=== PATIENT | female | born 1940 | race Caucasian/White ===

== ENCOUNTER 2017-10-16 09:30 | Outpatient (RCR) | payer MEDICARE, OTHER, SELFPAY | END 2017-10-17 23:59 | LOC: NS 09:30 | PROVIDERS: Family Provider Family Medicine; PCP Family Medicine; Visit Provider Orthopaedic Surgery | DX: E66.9 Obesity, unspecified (principal); Z68.42 Body mass index [BMI] 45.0-49.9, adult; Z71.3 Dietary counseling and surveillance | CPT/HCPCS: 97802; 97803 ==

== ENCOUNTER 2017-11-04 08:52 | Outpatient (RCR) | payer MEDICARE, OTHER, SELFPAY | END 2017-11-16 23:59 | LOC: NS 08:52 | PROVIDERS: Family Provider Family Medicine; PCP Family Medicine; Visit Provider Orthopaedic Surgery | DX: E66.9 Obesity, unspecified (principal); Z68.42 Body mass index [BMI] 45.0-49.9, adult; Z71.3 Dietary counseling and surveillance | CPT/HCPCS: 97803 ==

== ENCOUNTER 2017-12-05 09:00 | Outpatient (RCR) | payer MEDICARE, OTHER, SELFPAY | END 2017-12-17 23:59 | LOC: NS 09:00 | PROVIDERS: Family Provider Family Medicine; PCP Family Medicine; Visit Provider Orthopaedic Surgery | DX: E66.9 Obesity, unspecified (principal); Z68.42 Body mass index [BMI] 45.0-49.9, adult; Z71.3 Dietary counseling and surveillance | CPT/HCPCS: 97803 ==

== ENCOUNTER 2018-01-12 10:00 | Outpatient (RCR) | payer MEDICARE, OTHER, SELFPAY | END 2018-01-16 23:59 | LOC: NS 10:00 | PROVIDERS: Family Provider Family Medicine; PCP Family Medicine; Visit Provider Orthopaedic Surgery | DX: E66.9 Obesity, unspecified (principal); Z68.42 Body mass index [BMI] 45.0-49.9, adult; Z71.3 Dietary counseling and surveillance | CPT/HCPCS: 97803 ==

== ENCOUNTER 2018-02-02 08:00 | Outpatient (RCR) | payer MEDICARE, OTHER, SELFPAY | END 2018-02-02 11:43 | disposition home or self-care (01) | LOC: NS 08:00 | PROVIDERS: Family Provider Family Medicine; PCP Family Medicine; Visit Provider Orthopaedic Surgery | DX: E66.9 Obesity, unspecified (principal); Z68.42 Body mass index [BMI] 45.0-49.9, adult; Z71.3 Dietary counseling and surveillance | CPT/HCPCS: 97803 ==

== ENCOUNTER → 2018-02-06 10:00 | Outpatient (CLI) | payer MEDICARE, OTHER, SELFPAY ==
[2018-02-06 11:42] LABS: Anion Gap 8 (5-15); BUN 26 mg/dL (7-18); BUN/Creat Ratio 27.8 RATIO (10-20); Chloride 101 mmol/L (98-107); Creatinine, Serum 0.94 mg/dL (0.55-1.02); EST Glomerular Filtration Rate 62 mL/min (>60); Est Glom Filt Rate - Afr Amer 75 mL/min (>60); Glucose 99 mg/dL (74-106); Potassium 2.8 mmol/L (3.5-5.1); Sodium Level 139 mmol/L (136-145)
== END ==
PROVIDERS: Family Provider Family Medicine; PCP Family Medicine
DX: I10 Essential (primary) hypertension (principal)
CPT/HCPCS: 36415; 80048

== ENCOUNTER → 2018-10-15 | Outpatient (CLI) | payer MEDICARE, OTHER, SELFPAY ==
[2018-10-15 13:37] LABS: Hematocrit 44.3 % (37-47); Hemoglobin 14.8 g/dL (12.0-15.0); Mean Corp Hgb Conc 33.4 g/dL (32-36); Mean Corpuscular Hgb 29.2 pg (27.0-32.0); Mean Corpuscular Volume 87.5 fL (81-99); Mean Platelet Vol. 10.4 fl (6.2-12.0); Platelet Count 257 K/mm3 (150-450); RBC Distribution Width CV 14.6 % (11.6-14.6); RBC Distribution Width SD 46.5 fl (35.1-43.9); Red Blood Count 5.06 M/mm3 (4.2-5.4); White Blood Count 8.2 K/mm3 (4.4-11.0)
[2018-10-15 13:58] LABS: ALB/GLOB Ratio 0.9 RATIO (0.9-2.4); AST(SGOT) 22 U/L (15-37); Alanine Aminotransfer ALT/SGPT 17 U/L (13-56); Albumin, Serum 3.2 g/dL (3.2-5.0); Alkaline Phosphatase 150 U/L (45-117); Anion Gap 6 (5-15); BUN 26 mg/dL (7-18); BUN/Creat Ratio 23.2 RATIO (10-20); Chloride 104 mmol/L (98-107); Creatinine, Serum 1.12 mg/dL (0.55-1.02); EST Glomerular Filtration Rate 50 mL/min (>60); Est Glom Filt Rate - Afr Amer 61 mL/min (>60); Globulin 3.7 g/dL (2.2-4.2); Glucose 116 mg/dL (74-106); Potassium 3.3 mmol/L (3.5-5.1); Protein, Total 6.9 g/dL (6.4-8.2); Sodium Level 141 mmol/L (136-145)
== END | disposition home or self-care (01) ==
LOC: LAB 13:17
PROVIDERS: Family Provider Family Medicine; PCP Family Medicine; Referring Provider Family Medicine; Visit Provider Family Medicine
DX: E11.9 Type 2 diabetes mellitus without complications (principal); M19.90 Unspecified osteoarthritis, unspecified site; I10 Essential (primary) hypertension; E87.6 Hypokalemia
CPT/HCPCS: 36415; 80053; 85027

== ENCOUNTER → 2019-10-29 08:58 | Outpatient (CLI) | payer MEDICARE, OTHER, SELFPAY ==
[2019-10-29 09:22] LABS: Hematocrit 43.6 % (37-47); Hemoglobin 13.9 g/dL (12.0-15.0); Mean Corp Hgb Conc 31.9 g/dL (32-36); Mean Corpuscular Hgb 27.8 pg (27.0-32.0); Mean Corpuscular Volume 87.2 fL (81-99); Mean Platelet Vol. 10.5 fl (6.2-12.0); Platelet Count 263 K/mm3 (150-450); RBC Distribution Width CV 15.5 % (11.6-14.6); RBC Distribution Width SD 49.2 fl (35.1-43.9); White Blood Count 7.7 K/mm3 (4.4-11.0)
[2019-10-29 09:41] LABS: Hemoglobin A1c 5.5 % (3.8-5.6)
[2019-10-29 09:47] LABS: ALB/GLOB Ratio 0.8 RATIO (0.9-2.4); AST(SGOT) 27 U/L (15-37); Alanine Aminotransfer ALT/SGPT 19 U/L (13-56); Albumin, Serum 3.3 g/dL (3.2-5.0); Alkaline Phosphatase 183 U/L (45-117); Anion Gap 7 (5-15); BUN 34 mg/dL (7-18); BUN/Creat Ratio 31.8 RATIO (10-20); Calcium,Total 9.2 mg/dL (8.5-10.1); Chloride 100 mmol/L (98-107); Cholesterol 119 mg/dL (200); Creatinine, Serum 1.07 mg/dL (0.55-1.02); EST Glomerular Filtration Rate 53 mL/min (>60); Est Glom Filt Rate - Afr Amer 64 mL/min (>60); Globulin 4.1 g/dL (2.2-4.2); Glucose 97 mg/dL (74-106); High Density Lipoprotein 51 mg/dL; Potassium 3.3 mmol/L (3.5-5.1); Protein, Total 7.4 g/dL (6.4-8.2); Sodium Level 141 mmol/L (136-145); Triglycerides 98 mg/dL; Very Low Density Lipoprotein 20 mg/dL (5-40)
== END ==
PROVIDERS: PCP Nurse Practitioner Family; Referring Provider Nurse Practitioner Family; Visit Provider Nurse Practitioner Family
DX: I10 Essential (primary) hypertension (principal); E11.9 Type 2 diabetes mellitus without complications; E78.5 Hyperlipidemia, unspecified
CPT/HCPCS: 36415; 80053; 80061; 83036; 85027

== ENCOUNTER → 2020-02-29 11:54 | Outpatient (CLI) | payer MEDICARE, OTHER, SELFPAY ==
[2020-02-29 13:20] LABS: ALB/GLOB Ratio 0.8 RATIO (0.9-2.4); AST(SGOT) 27 U/L (15-37); Alanine Aminotransfer ALT/SGPT 22 U/L (13-56); Albumin, Serum 3.2 g/dL (3.2-5.0); Alkaline Phosphatase 178 U/L (45-117); Anion Gap 7 (5-15); BUN 31 mg/dL (7-18); BUN/Creat Ratio 30.4 RATIO (10-20); Calcium,Total 9.2 mg/dL (8.5-10.1); Chloride 103 mmol/L (98-107); Creatinine, Serum 1.02 mg/dL (0.55-1.02); EST Glomerular Filtration Rate 56 mL/min (>60); Est Glom Filt Rate - Afr Amer 67 mL/min (>60); Globulin 4.1 g/dL (2.2-4.2); Glucose 121 mg/dL (74-106); Potassium 3.2 mmol/L (3.5-5.1); Protein, Total 7.3 g/dL (6.4-8.2); Sodium Level 140 mmol/L (136-145)
== END ==
PROVIDERS: PCP Nurse Practitioner Family; Referring Provider Nurse Practitioner Family; Visit Provider Nurse Practitioner Family
DX: E87.6 Hypokalemia (principal)
CPT/HCPCS: 36415; 80053

== ENCOUNTER 2020-05-22 15:12 | Inpatient (IN) | payer MEDICARE, OTHER, SELFPAY ==
[2020-05-11 13:21] VITALS: BMI 50.1
[2020-05-22] VITALS (7 sets, daily range): BP systolic 119–155; BP diastolic 65–80; PULSE 75–89; RESP 15–24; TEMP 36.4–37; O2SAT 94–98; BMI 52.7; BMI 52.4
--- NOTE | 2020-05-22 15:21 | ED.DCSUM_ITS ---
History of Present Illness Chief Complaint: Other, Pain/Inj Informant: Patient Narrative: 79-year-old female with history of CVA and history of right-sided hemiparesis presenting with right hip and right knee pain. She states this is been a chronic issue since 2013 when she had her CVA. She states that over the last few days has been hurting worse. She has physical therapy at home and was unable to do physical therapy and was sent by physical therapy to come evaluated in the ER. She states she normally ambulates with a walker but cannot do this. She denies any falls. Patient states she lives at home and is concerned for her safety. - Past Medical History (1) Atrial fibrillation Status: Acute (2) CVA (cerebral vascular accident) Status: Acute (3) Hypercholesteremia Status: Acute Past Medical History - Allergies and Home Meds Allergies/Adverse Reactions: Allergies acetaminophen [From Darvocet-N] Allergy (Verified 05/22/20 15:19) Shortness of breath carvedilol Allergy (Verified 05/22/20 15:19) unknown celecoxib Allergy (Verified 05/22/20 15:19) unknown codeine Allergy (Verified 05/22/20 15:19) Shortness of breath etodolac Allergy (Verified 05/22/20 15:19) unknown irbesartan Allergy (Verified 05/22/20 15:19) unknown latex Allergy (Verified 05/22/20 15:19) unknown lisinopril Allergy (Verified 05/22/20 15:19) unknown losartan Allergy (Verified 05/22/20 15:19) unknown morphine Allergy (Verified 05/22/20 15:19) Shortness of breath Opioids - Morphine Analogues Allergy (Verified 05/22/20 15:19) unknown propoxyphene [From Darvon] Allergy (Verified 05/22/20 15:19) unknown propoxyphene napsylate [From Darvocet-N] Allergy (Verified 05/22/20 15:19) Shortness of breath sotalol Allergy (Verified 05/22/20 15:19) unknown Prior records reviewed: Yes Past Medical History: - - Fibrillation, CVA, COPD, hyperlipidemia, hypertension, morbid obesity Surgical History: total knee arthroplasty Lives: Alone Smoking Status: Never smoker Alcohol: None Drugs: None Review of Systems General: Denies: Chills, Fever, Sweats Eyes: Denies: Visual changes - bilaterally, Diplopia ENT: Denies: Rhinorrhea, Sore throat Cardiovascular: Denies: Chest pain, Palpitations Respiratory: Reports: Dyspnea, Dyspnea on exertion. Denies: Cough Gastrointestinal: Denies: Abdominal pain, Nausea, Vomiting, Diarrhea, Melena, Hematochezia Genitourinary: Denies: Dysuria, Hematuria, Frequency Musculoskeletal: Reports: - - Right hip and right knee pain Skin: Denies: Rash, Abscess, Abrasions Neurological: Denies: Headache, Weakness, Numbness Psych: Denies: Depression, Anxiety Endocrine: Denies: Polyuria, Polydipsia Physical Exam Vital Signs/Narrative: Vital Signs Temp Pulse Resp BP Pulse Ox 05/22/20 15:13 98.6 F 77 22 H 123/65 H 98 Inital Vital Signs reviewed: Yes General: Obese, No Acute Distress Head: Normocephalic, Atraumatic Eyes: Perrl, EOMI ENT: Moist mucous membranes, No rhinorrhea Cardiovascular: Regular rate, Regular rhythm Respiratory: No distress, CTA bilaterally Abdomen: Soft, Nontender, Nondistended Extremities: - - Tenderness to palpation over the right trochanter. No obvious deformity. There is pain with range of motion. Negative logroll. Patient also has pain with range of motion of the right knee. She appears to have tenderness down the IT band on the right. Skin: Normal color, No rash Neurological: Alert, Oriented x3, Cranial nerves II-XII grossly intact Psychological: Normal affect, Normal Mood Diagnostic/Tx/Re-eval Clinical Impression(s) from Imaging Studies Hip/Pelvis X-Ray 05/22/20 15:30 IMPRESSION: 1. No acute findings. 2. Severe osteoarthrosis of the right hip. Electronically Signed: Celestina Finn MD at 16:41 EDT Tel , Service support , Knee X-Ray 05/22/20 15:30 IMPRESSION: Soft tissue swelling, otherwise no acute findings. Electronically Signed: Celestina Finn MD at 16:42 EDT Tel , Service support , Chest X-Ray 05/22/20 16:00 IMPRESSION: 1. No acute findings. Electronically Signed: Celestina Finn MD at 16:34 EDT Tel , Service support , Laboratory Data 05/22/20 05/22/20 05/22/20 15:55 15:55 15:55 WBC 7.6 RBC 4.49 Hgb 11.8 L Hct 38.7 MCV 86.2 MCH 26.3 L MCHC 30.5 L RDW Std Deviation 55.8 H RDW Coeff of Rasta 17.8 H Plt Count 263 MPV 10.2 Immature Gran % (Auto) 0.500 Neut % (Auto) 72.5 H Lymph % (Auto) 12.2 L [place] % (Auto) 9.8 Eos % (Auto) 4.6 Baso % (Auto) 0.4 Absolute Neuts (auto) 5.5 Absolute Lymphs (auto) 0.92 Nucleated RBC % 0 Sodium 139 Potassium 4.0 Chloride 106 Carbon Dioxide 29.0 Anion Gap 4 L BUN 33 H Creatinine 1.35 H Estim Creat Clear Calc 24.67 Est GFR (MDRD) Af Amer 49 L Est GFR (MDRD) Non-Af 40 L BUN/Creatinine Ratio 24.4 H Glucose 139 H Calcium 9.1 Total Bilirubin 0.80 AST 26 ALT 24 Alkaline Phosphatase 179 H Troponin I < 0.015 B-Natriuretic Peptide 634.1 H Total Protein 7.2 Albumin 2.9 L Globulin 4.3 H Albumin/Globulin Ratio 0.7 L - Medical Decision Making 79-year-old female presenting with inability to ambulate secondary to right hip and right knee pain. She is not had any trauma. She was seeing home PT today and was unable to perform this secondary to pain. She states she walks with a walker and cannot walk around her house. She lives alone. Patient does state that she is chronically short of breath and has worsening of this when she is walking but it may be due to pain. EKG performed on arrival shows atrial fibrillation at 77 bpm without signs of ischemic change as interpreted by myself. Chest x-ray shows no acute cardiopulmonary process as interpreted by myself. Radiology does agree with both reads. CBC shows white blood cell count 7.6, hemoglobin 11.8, platelets 263. CMP shows BUN 33, creatinine 1.35 and was previously 1.38. BNP is 634 was previously 716. There is no signs of chest of CHF on chest x-ray. Given patient's inability ambulate difficulty finding medications he can tolerate due to multiple allergies I did give her Toradol which seemed to give her some relief. Patient will be admitted. At this time she cannot tell me whether she wants to go to a long-term or longterm. They can determine this on the medical floor. Discussed with hospitalist. Impression: 1. Right hip pain 2. Right knee pain 3. Inability to ambulate ED Disposition - Plan for ED Patient:
--- NOTE | 2020-05-22 15:29 | EKG12_ITS ---
Test Reason : RIGHT SIDE PAIN Blood Pressure : / mmHG Vent. Rate : 077 BPM Atrial Rate : 277 BPM P-R Int : 000 ms QRS Dur : 082 ms QT Int : 402 ms P-R-T Axes : 000 -27 157 degrees QTc Int : 454 ms Atrial fibrillation Low voltage QRS Cannot rule out Anteroseptal infarct , age undetermined Abnormal ECG Confirmed by LYDIA LANG, STEPHANIE ([id number]), editor department JAKOB MORALES ([id number]) on 05/26/2020 2:28:18 PM Referred By: MISTI Confirmed By:STEPHANIE FREEMAN MD
--- NOTE | 2020-05-22 15:30 | RAD_ITS ---
STUDY: X-RAY - RIGHT KNEE REASON FOR EXAM: Female, 79 years old. knee pain TECHNIQUE: 2 view(s) of the knee. COMPARISON: None. FINDINGS: Prior total knee replacement. No fracture or dislocation. No periprosthetic fracture. No evidence of loosening. Moderate soft tissue swelling. RAD/Knee 1 or 2 Views IMPRESSION: Soft tissue swelling, otherwise no acute findings. Electronically Signed: Celestina Finn MD at 16:42 EDT Tel , Service support ,
--- NOTE | 2020-05-22 15:30 | RAD_ITS ---
STUDY: X-RAY - PELVIS AND RIGHT HIP REASON FOR EXAM: Female, 79 years old. hip pain TECHNIQUE: 3 views of the pelvis and hip. COMPARISON: None. FINDINGS: Prior left hip replacement. No fracture or dislocation. Severe osteoarthrosis of the right hip. Marked joint space narrowing, sclerosis, and subchondral cyst formation. Flattening of the femoral head may indicate insufficiency fracture. There is mild lateral subluxation of the femoral head. Mild degenerative changes of the lower lumbar spine. RAD/HIP, UNI W/ Pelvis 2-3 Views IMPRESSION: 1. No acute findings. 2. Severe osteoarthrosis of the right hip. Electronically Signed: Celestina Finn MD at 16:41 EDT Tel , Service support ,
--- NOTE | 2020-05-22 16:00 | RAD_ITS ---
STUDY: X-RAY CHEST REASON FOR EXAM: Female, 79 years old. dypnea TECHNIQUE: Single AP portable view of the chest. COMPARISON: 06/04/2013. FINDINGS: The lungs are clear and expanded. There is no demonstrated pleural abnormality. Normal size heart. Normal mediastinum and teresa. Normal visualized pulmonary arteries. Mild atherosclerotic calcification of the aorta. Degenerative arthrosis of the right shoulder. Soft tissues and bony structures are otherwise unremarkable. RAD/Chest 1 View (Portable) IMPRESSION: 1. No acute findings. Electronically Signed: Celestina Finn MD at 16:34 EDT Tel , Service support ,
[2020-05-22 16:14] LABS: Absolute Lymphocyte Count 0.92 X10^3/uL (0.83-4.51); Absolute Neutrophil Count 5.5 X10^3/uL (2.0-7.7); Basophil# 0.03 X10^3/uL; Basophil% 0.4 % (0-1); Eosinophil# 0.35 X10^3/uL; Eosinophils% 4.6 % (0-5); Hematocrit 38.7 % (37-47); Hemoglobin 11.8 g/dL (12.0-15.0); Lymphocyte # 0.92 X10^3/ul (4.0); Lymphocyte % 12.2 % (19-41); Mean Corp Hgb Conc 30.5 g/dL (32-36); Mean Corpuscular Hgb 26.3 pg (27.0-32.0); Mean Corpuscular Volume 86.2 fL (81-99); Mean Platelet Vol. 10.2 fl (6.2-12.0); Monocyte# 0.74 X10^3/uL; Monocyte% 9.8 % (0-10); NRBC Flagged by Analyzer 0 % (0-5); Neutrophil # 5.47 X10^3/uL (2.7-7.7); Neutrophil % 72.5 % (47-70); Platelet Count 263 K/mm3 (150-450); RBC Distribution Width CV 17.8 % (11.6-14.6); RBC Distribution Width SD 55.8 fl (35.1-43.9); Red Blood Count 4.49 M/mm3 (4.2-5.4); White Blood Count 7.6 K/mm3 (4.4-11.0)
[2020-05-22 16:31] LABS: ALB/GLOB Ratio 0.7 RATIO (0.9-2.4); AST(SGOT) 26 U/L (15-37); Alanine Aminotransfer ALT/SGPT 24 U/L (13-56); Albumin, Serum 2.9 g/dL (3.2-5.0); Alkaline Phosphatase 179 U/L (45-117); Anion Gap 4 (5-15); BUN 33 mg/dL (7-18); BUN/Creat Ratio 24.4 RATIO (10-20); Calcium,Total 9.1 mg/dL (8.5-10.1); Chloride 106 mmol/L (98-107); Creatinine, Serum 1.35 mg/dL (0.55-1.02); EST Glomerular Filtration Rate 40 mL/min (>60); Est Glom Filt Rate - Afr Amer 49 mL/min (>60); Estimated Creatinine Clearance 24.67 ml/min; Globulin 4.3 g/dL (2.2-4.2); Glucose 139 mg/dL (74-106); Protein, Total 7.2 g/dL (6.4-8.2); Sodium Level 139 mmol/L (136-145)
[2020-05-22 16:47] LABS: BNP,B-Type NATRIURETIC PEPTIDE 634.1 pg/mL (0-100)
[2020-05-22] MEDS: Ketorolac 15 MG/ML Vial IV ×2 (17:08→22:19)
--- NOTE | 2020-05-22 18:21 | HP.PCM_ITS ---
Problem List (1) Right hip pain Status: Acute (2) Right knee pain Status: Acute Qualifiers: Chronicity: acute Qualified Code(s): M25.561 - Pain in right knee (3) Morbid obesity Status: Chronic (4) CKD (chronic kidney disease) Status: Chronic Qualifiers: Chronic kidney disease stage: stage 3 (moderate) Chronic kidney disease stage 3 subtype: unspecified whether 3a or 3b Qualified Code(s): N18.30 - Chronic kidney disease, stage 3 unspecified (5) Lymphedema Status: Chronic (6) Atrial fibrillation Status: Chronic Qualifiers: Atrial fibrillation type: paroxysmal Qualified Code(s): I48.0 - Paroxysmal atrial fibrillation (7) COPD with asthma Status: Chronic (8) HTN (hypertension) Status: Chronic Qualifiers: Hypertension type: essential hypertension Qualified Code(s): I10 - Essential (primary) hypertension (9) CVA (cerebral vascular accident) Status: Chronic Qualifiers: CVA mechanism: unspecified Qualified Code(s): I63.9 - Cerebral infarction, unspecified (10) Dyslipidemia Status: Chronic (11) DM2 (diabetes mellitus, type 2) Status: Chronic Qualifiers: Diabetes mellitus chcf insulin use: without long wall shear operator use Diabetes mellitus complication status: with other specified complication Qualified Code(s): E11.69 - Type 2 diabetes mellitus with other specified complication History of Present Illness Date of Admission: 05/22/20 Chief Complaint: R hip and R knee pain. The patient is a 79 y/o F w/ PMHx: Diabetes mellitus type II, GERD, Chronic COPD/Asthma, Chronic CHF Unclear type, Hx R sided CVA w/ chronic hemiplegia usually using a walker, HTN, HLD, PAF who presents to the [facility] ED on 05/22/20 with history of worsening R sided hip and knee pain ongoing for many years but worse over the last several days with no specific fall or injury but notable difficulty performing her own ALDs prompting her home PT/OT to refer her to the ED for evaluation. She is currently rating her pain 10 out of 10, worse with movement or attempted ambulation but does state that Toradol significantly improved her pain down to a 3 out of 10. She notes this has been similar for years on and and nothing is significantly changed but it has been more constant over the last several days. She notes that she had her stroke unfortunately when they were attempting to replace her hip. In the ED patient reports her hip pain recurrent, currently 10 out of 10, worse with any attempted movements. She did state that the Toradol did relieve her pain and made it 3 out of 10. She has been living with this for a long time but notes it is more severe over the last several days with no specific injury or fall. Work-up in the ED included T 98.6, heart rate 77, BP 123/65, respiratory rate 22, 98% on room air, CBC with WC 7.6, hemoglobin 9.8, platelet 263 without marked shift, CMP with BUN/creatinine 33/1.35, glucose 139, troponin less than 0.015, BNP 634.1, plain film right hip and pelvis with no acute findings with severe osteoarthrosis of the right hip, plain film of the right knee with soft tissue swelling otherwise no acute findings, chest x-ray with no acute cardiopulmonary findings. In the ED patient ministered Toradol 50 mg IV x1. Past Medical History Past Medical History (Chronic Problems): Chronic Problems (Last Reviewed 05/11/20 @ 13:16 by Tracy Ayon) Pulmonary hypertension (Chronic) Morbid obesity (Chronic) CKD (chronic kidney disease) (Chronic) Lymphedema (Chronic) Atrial fibrillation (Chronic) COPD with asthma (Chronic) HTN (hypertension) (Chronic) CVA (cerebral vascular accident) (Chronic) Dyslipidemia (Chronic) DM2 (diabetes mellitus, type 2) (Chronic) Medical History: Medical History (Last Reviewed 05/11/20 @ 13:16 by Tracy Ayon) History of cardioversion (Acute) Z98.890 Morbid obesity (Acute) E66.01 Hypercholesteremia (Acute) E78.00 CVA (cerebral vascular accident) (Acute) I63.9 CKD (chronic kidney disease) (Chronic) N18.9 Hepatitis A (Acute) B15.9 Lymphedema (Acute) I89.0 Hypokalemia (Acute) E87.6 Atrial fibrillation (Acute) I48.91 COPD with asthma (Chronic) J44.9 HTN (hypertension) (Chronic) I10 CVA (cerebral vascular accident) (Acute) I63.9 Dyslipidemia (Chronic) E78.5 DM2 (diabetes mellitus, type 2) (Chronic) E11.9 Allergies acetaminophen [From Darvocet-N] Allergy (Verified 05/22/20 15:19) Shortness of breath carvedilol Allergy (Verified 05/22/20 15:19) unknown celecoxib Allergy (Verified 05/22/20 15:19) unknown codeine Allergy (Verified 05/22/20 15:19) Shortness of breath etodolac Allergy (Verified 05/22/20 15:19) unknown irbesartan Allergy (Verified 05/22/20 15:19) unknown latex Allergy (Verified 05/22/20 15:19) unknown lisinopril Allergy (Verified 05/22/20 15:19) unknown losartan Allergy (Verified 05/22/20 15:19) unknown morphine Allergy (Verified 05/22/20 15:19) Shortness of breath Opioids - Morphine Analogues Allergy (Verified 05/22/20 15:19) unknown propoxyphene [From Darvon] Allergy (Verified 05/22/20 15:19) unknown propoxyphene napsylate [From Darvocet-N] Allergy (Verified 05/22/20 15:19) Shortness of breath sotalol Allergy (Verified 05/22/20 15:19) unknown Home Medications: Ambulatory Orders Medication Instructions Recorded Albuterol Inhaler [Ventolin Hfa] 1 - 2 puff INHALATION Q4H PRN PRN 06/04/13 [id number] [Beano] 1 each PO TIDCM 06/04/13 Lansoprazole [Prevacid] 30 mg PO DAILY 06/04/13 Multivitamins,Therapeutic 1 tablet PO DAILY 06/04/13 [Multivitamin] Naproxen [Naprosyn] 500 mg PO BID PRN 06/04/13 Valsartan/Hydrochlorothiazide 1 tablet PO DAILY 06/04/13 [Diovan Hct 320-12.5 MG Tab] apixaban 5 mg tablet 5 mg PO BID 05/10/20 atorvastatin 40 mg tablet 40 mg PO DAILY 05/10/20 diltiazem HCl 240 mg 240 mg PO DAILY 05/10/20 capsule,extended release 24 hr fexofenadine 60 mg tablet 60 mg PO DAILY@1200 tablet 05/10/20 flunisolide 25 mcg (0.025 %) nasal 1 spray INTRANASAL DAILY ml 05/10/20 spray furosemide 40 mg tablet 40 mg PO BID 05/10/20 metoprolol tartrate 50 mg tablet 50 mg PO BID 05/10/20 potassium chloride 20 mEq 20 meq PO DAILY 05/10/20 tablet,extended release umeclidinium 62.5 mcg-vilanterol 1 inh INHALATION DAILY 05/10/20 25 mcg/actuation powdr for inhalation Surgical History: Surgical History (Last Reviewed 05/11/20 @ 13:16 by Tracy Ayon) Hx of abdominal hysterectomy (Resolved) Z90.710 History of arthroplasty of knee (Resolved) Z96.659 History of carpal tunnel release (Resolved) Z98.890 History of total hip replacement (Resolved) Z96.649 Surgical History: total knee arthroplasty Psychiatric History: No pertinent psych hx [employer] History: No pertinent [employer] history Lives: Alone Smoking Status: Never smoker Alcohol: None Drugs: None - *Family History Maternal Family History: Family History (Last Reviewed 05/11/20 @ 13:16 by Tracy Ayon) Mother Asthma Cancer CHF (congestive heart failure) Hypertension Heart disease Hyperchloremia FH: mental illness Father Cancer Son Asthma Daughter Cancer History Items: Cancer, High Cholesterol, Heart Disease, Hypertension, Pulmonary Disease, Stroke Paternal Family History: Family History (Last Reviewed 05/11/20 @ 13:16 by Tracy Ayon) Mother Asthma Cancer CHF (congestive heart failure) Hypertension Heart disease Hyperchloremia FH: mental illness Father Cancer Son Asthma Daughter Cancer History Items: Cancer Review of Systems Constitutional: Reports: Malaise, Weakness, Fatigue. Denies: Anorexia, Chills, Fever, Weight Change HEENT: Denies: Head Aches, Sinus Congestion, Sinus Drainage Cardiovascular: Denies: Chest Pain, Palpitations Respiratory: Denies: Cough, Shortness of breath at rest, Sputum production Gastrointestinal: Denies: Abdominal Pain, Nausea, Vomiting Genitourinary: Denies: Dysuria Musculoskeletal: Reports: Back Pain, Joint Pain, Joint stiffness, Joint swelling, Joint Tenderness, Leg Pain Skin: Denies: Rash, Wounds Neurological: Reports: Focal weakness. Denies: Numbness, Tingling Psychiatric: Denies: Anxiety, Depression, Homicidal Ideations, Suicidal Ideations Hematologic/ Lymphatic: Reports: Easy Bruising, Easy Bleeding VTE Information - Inpt Only VTE Present on Admission: No VTE Mechan Device Prophylaxis: SCD's VTE Pharm Prophylaxis ordered?: No Reason prophylaxis not ordered:: Treatment Not Indicated - Continue home anticoagulation. Patient Problems: Active and Suspected Problems (Last Reviewed 05/11/20 @ 13:16 by Tracy Ayon) Hypercholesteremia (Acute) Subjective: Patient seated upright in ED bed, severely uncomfortable, notes her right hip is hurting again as well as her right knee, had improved transiently. Objective: Physical Examination: General: awake, alert, oriented x 3 and cooperative, seated upright in the ED bed, notes she is very uncomfortable, she notes this is a chronic state but worse over the last couple days with activities. Skin: normal color, turgor, no icterus, cyanosis set notable bilateral lower extremity chronic venous stasis skin changes. HEENT: AT/NC, EOMI, PERRLA, mildly dry MM, no carotid bruits or JVD noted; however, thickened neck makes examination difficult. Lungs: Diminished, distant, greater bases, appropriate effort, no rales, ronchi or wheezing. Heart: Regular rate and rhythm; no gallop, rub audible. Abdomen: soft, morbidly obese, NTTP, ND, normal BS, difficult to assess HSM secondary to morbidly obese habitus. Extremities: no cyanosis or clubbing, bilateral lower extremity right greater than left which is chronic pedal to proximal casas 2+ pitting edema, chronic lymphedema present per patient discussion, see skin. Notable discomfort with lower extremity straight leg raise, right greater than left with pain worse to the right hip, internal and external rotation appropriate although some difficulty performing secondary to discomfort. Neurological: patient awake, alert, oriented as noted; cognitive function intact; pupils equally reactive to light and accomodation; cranial nerves II-XII grossly normal, moving all 4 extremities although very limited secondary to right knee and hip pain, patient with chronic mild right-sided hemiplegia following stroke, strength severely global decrease secondary to acute presentation and chronic underlying prior comorbidities. Psychiatric: affect appears uncomfortable, no acute evidence of depressive or anxiety feelings. - Physical Exam Vitals/I&O's: Vital Signs Temp Pulse Resp BP Pulse Ox 98.0 F 89 15 155/80 H 96 05/22/20 18:08 05/22/20 18:08 05/22/20 18:08 05/22/20 18:08 05/22/20 18:08 Oxygen Delivery Method Room Air Weight: 270 lb 4.587 oz Body Mass Index (BMI) 52.7 Finger Stick Blood Glucose 149 Laboratory Results 05/22/20 15:55: WBC 7.6, RBC 4.49, Hgb 11.8 L, Hct 38.7, MCV 86.2, MCH 26.3 L, MCHC 30.5 L, RDW Std Deviation 55.8 H, RDW Coeff of Rasta 17.8 H, Plt Count 263, MPV 10.2, Immature Gran % (Auto) 0.500, Neut % (Auto) 72.5 H, Lymph % (Auto) 12.2 L, [place] % (Auto) 9.8, Eos % (Auto) 4.6, Baso % (Auto) 0.4, Absolute Neuts (auto) 5.5, Absolute Lymphs (auto) 0.92, Nucleated RBC % 0 05/22/20 15:55: Sodium 139, Potassium 4.0, Chloride 106, Carbon Dioxide 29.0, Anion Gap 4 L, BUN 33 H, Creatinine 1.35 H, Estim Creat Clear Calc 24.67, Est GFR (MDRD) Af Amer 49 L, Est GFR (MDRD) Non-Af 40 L, BUN/Creatinine Ratio 24.4 H , Glucose 139 H, Calcium 9.1, Total Bilirubin 0.80, AST 26, ALT 24, Alkaline Phosphatase 179 H, Troponin I < 0.015, Total Protein 7.2, Albumin 2.9 L, Globulin 4.3 H, Albumin/Globulin Ratio 0.7 L 05/22/20 15:55: B-Natriuretic Peptide 634.1 H Assessment/Plan All Active Problems (Last Reviewed 05/11/20 @ 13:16 by Tracy Ayon) Right hip pain (Acute) Right knee pain (Acute) Dyspnea (Acute) Hx of abdominal hysterectomy (Resolved) History of arthroplasty of knee (Resolved) History of carpal tunnel release (Resolved) History of total hip replacement (Resolved) History of cardioversion (Acute) Hypercholesteremia (Acute) CVA (cerebral vascular accident) (Acute) Hepatitis A (Acute) Hypokalemia (Acute) The patient is a 79 y/o F w/ PMHx: Diabetes mellitus type II, GERD, Chronic COPD/Asthma, Chronic CHF Unclear type, Hx R sided CVA w/ chronic hemiplegia usually using a walker, HTN, HLD, PAF who presents to the [facility] ED on 4/5/21 with history of worsening R sided hip and knee pain ongoing for many years but worse over the last several days with no specific fall or injury but notable difficulty performing her own ALDs prompting her home PT/OT to refer her to the ED. 1. Intractable right hip and right knee pain with debility, failure to thrive at home adult: Given patient #2, complicates presentation, plain films with no acute findings aside from severe osteoarthrosis, given difficulty caring for self at home will admit to medical surgical floor, maintain on fall precautions, obtain PT and OT assessment as well as case management intervention for possible need for skilled temporary placement, as needed pain regimen oral and IV if necessary, cautiously use anti-inflammatories given anticoagulation state. If not improving may need to consider further imaging with CT to further evaluate for possible underlying injury not visualized on plain film. 2. History of prior CVA with chronic right-sided hemiplegia: Complicates presentation, maintain on fall precautions, PT and OT consulted, continue patient apixaban, hypertensive regimen, statin therapy as well as diabetic interventions with hold on oral regimen as noted. 3. Chronic COPD/Asthma: Hold patient home inhalers, maintain on ATC duonebs, PRN albuterol, HOB, IS parameters. 4. Diabetes mellitus type II: Hold oral home regimen, ADA diet, accu checks w/ ISS. 5. PAF: Will continue patient home apixaban, diltiazem as well as metoprolol regimen with hold parameters as needed. 6. Hypertension: Continue home regimen including diltiazem, metoprolol, valsartan, hydrochlorothiazide regimen with hold parameters as needed, PRN hydralazine. 7. Hyperlipidemia: Continue home statin regimen. 8. GERD: Continue patient home PPI. 9. Chronic bilateral lower extremity lymphedema: We will place snug Shashi wraps, elevation as #1 allows. 10. DVT prophylaxis: SCDs, continue patient home apixaban regimen. 11. CODE status: Patient EVAN is her daughter and she notes that her son is her financial power of civil attorney and living will is currently in place. Discussed CODE status at length including difference between FULL code, DNR-CCA and DNR-CC status. Following discussions about the differences in these status, requested Full Code but was very specific about additional items in her living will. Advanced Care Planning Face to Face Time: 16 minutes. OBSV E&M: 47630 Initial observation care L3 Procedures: 57095 Advncd Care Plan 30 Min
[2020-05-22 18:55] LABS: Magnesium 2.5 mg/dL (1.6-2.6)
[2020-05-22] MEDS: Ipratropium/Albuterol Sulfate 3 ML AMPUL.NEB INHALATION (19:31)
[2020-05-22] MEDS: 0.9% Normal Saline 1,000 ML 100 ML IV (20:13)
[2020-05-22] MEDS: 0.9% Saline Lock 10 ML Syringe IV (20:13)
[2020-05-22] MEDS: Gabapentin 100 MG Capsule PO (20:15)
[2020-05-22] MEDS: Albuterol 2.5 MG/3 ML VIAL.NEB. INHALATION (21:20)
[2020-05-22] MEDS: Nystatin Powder 15gm Bottle 1 APPLIC TOPICAL (22:15)
[2020-05-22] MEDS: Menthol/Lanolin/Calamine/Znox 113 GM Tube 1 APPLIC TOPICAL (22:15)
[2020-05-22] MEDS: Pantoprazole Sodium 20 MG Tablet PO (22:19)
[2020-05-22] MEDS: Metoprolol Tartrate 50 MG Tablet PO (22:19)
[2020-05-22] MEDS: APIXABAN 5 MG TABLET PO (22:19)
[2020-05-22 22:26] LABS: Bedside Glucose 97 mg/dL (70-110)
[2020-05-23] VITALS (11 sets, daily range): BP systolic 103–115; BP diastolic 58–73; PULSE 72–90; RESP 18–24; TEMP 36.4–36.8; O2SAT 94–96
[2020-05-23] MEDS: Acetaminophen 325 MG Tablet 650 MG PO ×4 (00:53→18:13)
--- NOTE | 2020-05-23 04:15 | NURSING ---
Rey catheter inserted at this time per order for urinary retention. Pt tolerated procedure well. 400cc of clear, indigo colored urine immediately drained from bladder. Will continue to monitor.
[2020-05-23] MEDS: Ketorolac 15 MG/ML Vial IV ×2 (05:17→13:45)
[2020-05-23] MEDS: Nystatin Powder 15gm Bottle 1 APPLIC TOPICAL ×3 (05:17→20:35)
[2020-05-23 05:23] LABS: Absolute Lymphocyte Count 1.08 X10^3/uL (0.83-4.51); Absolute Neutrophil Count 4.7 X10^3/uL (2.0-7.7); Basophil# 0.04 X10^3/uL; Basophil% 0.6 % (0-1); Eosinophil# 0.56 X10^3/uL; Hematocrit 34.1 % (37-47); Hemoglobin 10.5 g/dL (12.0-15.0); Lymphocyte # 1.08 X10^3/ul (4.0); Lymphocyte % 15.3 % (19-41); Mean Corp Hgb Conc 30.8 g/dL (32-36); Mean Corpuscular Hgb 26.4 pg (27.0-32.0); Mean Corpuscular Volume 85.9 fL (81-99); Monocyte# 0.67 X10^3/uL; Monocyte% 9.5 % (0-10); NRBC Flagged by Analyzer 0 % (0-5); Neutrophil # 4.68 X10^3/uL (2.7-7.7); Neutrophil % 66.5 % (47-70); Platelet Count 238 K/mm3 (150-450); RBC Distribution Width CV 17.7 % (11.6-14.6); RBC Distribution Width SD 53.8 fl (35.1-43.9); Red Blood Count 3.97 M/mm3 (4.2-5.4)
[2020-05-23 05:43] LABS: ALB/GLOB Ratio 0.6 RATIO (0.9-2.4); AST(SGOT) 23 U/L (15-37); Alanine Aminotransfer ALT/SGPT 18 U/L (13-56); Albumin, Serum 2.4 g/dL (3.2-5.0); Alkaline Phosphatase 148 U/L (45-117); Anion Gap 4 (5-15); BUN 30 mg/dL (7-18); BUN/Creat Ratio 25.9 RATIO (10-20); Calcium,Total 8.7 mg/dL (8.5-10.1); Chloride 108 mmol/L (98-107); Creatinine, Serum 1.16 mg/dL (0.55-1.02); EST Glomerular Filtration Rate 48 mL/min (>60); Est Glom Filt Rate - Afr Amer 58 mL/min (>60); Estimated Creatinine Clearance 28.71 ml/min; Globulin 3.8 g/dL (2.2-4.2); Glucose 91 mg/dL (74-106); Potassium 4.1 mmol/L (3.5-5.1); Protein, Total 6.2 g/dL (6.4-8.2); Sodium Level 139 mmol/L (136-145)
[2020-05-23 06:35] LABS: Bedside Glucose 82 mg/dL (70-110)
[2020-05-23] MEDS: Ipratropium/Albuterol Sulfate 3 ML AMPUL.NEB INHALATION ×3 (07:18→19:00)
--- NOTE | 2020-05-23 07:34 | PN_ITS ---
Patient Problems: Active and Suspected Problems (Last Reviewed 05/11/20 @ 13:16 by Tracy Ayon) Right hip pain (Acute) Right knee pain (Acute) Hypercholesteremia (Acute) Reason for Visit: Follow-up for right hip and knee pain, severe degenerative arthritis with morbid obesity. Objective: Patient was admitted with intractable chronic right hip and knee pain since 2013. She had history of CVA in the past. Blood pressure and heart rate normal range. She also complains of spasm below right knee in anterior group of muscles. General: Alert, Oriented x3, Cooperative, morbid obesity, BMI 52.7 kg/m? HEENT: Atraumatic, PERRLA, EOMI, Normocephalic Oral: No Gingival or Mucosal Lesions/ Ulcerations Neck: Supple, No JVD, Negative Carotid Bruits Lungs: Air entry diminished in bilateral lung bases. No crepitation/rhonchi Cardiovascular: Regular rate, Regular Rhythm, Normal S1, Normal S2, No murmurs Abdomen: Large abdominal pannus with subcutaneous edema. Bowel Sounds Present, Soft, Non Tender. : No renal angle tenderness. No suprapubic tenderness. Extremities: No ankle edema, Capillary Refill Less than 3 Seconds Skin: No rashes, No breakdown Musculoskeletal: Tenderness present over right hip and right knee joints. ROM mild bilateral hips, knees are severely impaired. Neurological: Cranial nerves II-XII grossly intact, Deep Tendon Reflexes 2+/4 Psych/Mental Status: Flat affect. Vitals/I&O's: Vital Signs Temp Pulse Resp BP Pulse Ox 97.5 F L 83 18 113/73 94 05/23/20 03:34 05/23/20 03:34 05/23/20 03:34 05/23/20 03:34 05/23/20 03:46 Oxygen Flow Rate (L/min) 2 Oxygen Delivery Method Nasal Cannula Weight: 269 lb 10.005 oz Body Mass Index (BMI) 52.4 Finger Stick Blood Glucose 149 Intake and Output for Last 24 Hours 05/21/20 05/22/20 05/23/20 23:59 23:59 23:59 Intake Total 1700 / 1700 Output Total 450 / 450 Balance 1250 / 1250 Laboratory Results 05/22/20 15:55: WBC 7.6, RBC 4.49, Hgb 11.8 L, Hct 38.7, MCV 86.2, MCH 26.3 L, MCHC 30.5 L, RDW Std Deviation 55.8 H, RDW Coeff of Rasta 17.8 H, Plt Count 263, MPV 10.2, Immature Gran % (Auto) 0.500, Neut % (Auto) 72.5 H, Lymph % (Auto) 12.2 L, Mason % (Auto) 9.8, Eos % (Auto) 4.6, Baso % (Auto) 0.4, Absolute Neuts (auto) 5.5, Absolute Lymphs (auto) 0.92, Nucleated RBC % 0 05/22/20 15:55: Sodium 139, Potassium 4.0, Chloride 106, Carbon Dioxide 29.0, Anion Gap 4 L, BUN 33 H, Creatinine 1.35 H, Estim Creat Clear Calc 24.67, Est GFR (MDRD) Af Amer 49 L, Est GFR (MDRD) Non-Af 40 L, BUN/Creatinine Ratio 24.4 H , Glucose 139 H, Calcium 9.1, Total Bilirubin 0.80, AST 26, ALT 24, Alkaline Phosphatase 179 H, Troponin I < 0.015, Total Protein 7.2, Albumin 2.9 L, Globulin 4.3 H, Albumin/Globulin Ratio 0.7 L 05/22/20 15:55: B-Natriuretic Peptide 634.1 H 05/22/20 15:55: Magnesium 2.5 05/22/20 22:14: POC Glucose 97 05/23/20 05:08: WBC 7.0, RBC 3.97 L, Hgb 10.5 L, Hct 34.1 L, MCV 85.9, MCH 26.4 L, MCHC 30.8 L, RDW Std Deviation 53.8 H, RDW Coeff of Rasta 17.7 H, Plt Count 238, MPV 11.0, Immature Gran % (Auto) 0.100, Neut % (Auto) 66.5, Lymph % (Auto) 15.3 L, Mason % (Auto) 9.5, Eos % (Auto) 8.0 H, Baso % (Auto) 0.6, Absolute Neuts (auto) 4.7, Absolute Lymphs (auto) 1.08, Nucleated RBC % 0 05/23/20 05:08: Sodium 139, Potassium 4.1, Chloride 108 H, Carbon Dioxide 27.0, Anion Gap 4 L, BUN 30 H, Creatinine 1.16 H, Estim Creat Clear Calc 28.71, Est GFR (MDRD) Af Amer 58 L, Est GFR (MDRD) Non-Af 48 L, BUN/Creatinine Ratio 25.9 H , Glucose 91, Calcium 8.7, Total Bilirubin 1.00, AST 23, ALT 18, Alkaline Phosphatase 148 H, Total Protein 6.2 L, Albumin 2.4 L, Globulin 3.8, Albumin/Globulin Ratio 0.6 L 05/23/20 06:20: POC Glucose 82 Current Medications Acetaminophen (Acetaminophen 325 Mg Tablet) 650 mg PO Q4H PRN PRN PRN Reason: Pain Score 1-10 Last Admin: 05/23/20 00:53 Dose: 650 mg Documented by: Al Hydroxide/Mg Hydroxide (Mag Hydrox/Al Hydrox/Simeth 30 Ml Udc) 30 ml PO Q6H PRN PRN PRN Reason: Gastric Burning Albuterol Sulfate (Albuterol 2.5 Mg/3 Ml Vial.Neb.) 2.5 mg INHALATION Q2H PRN PRN PRN Reason: Dyspnea, wheezing Last Admin: 05/22/20 21:20 Dose: 2.5 mg Documented by: Albuterol/Ipratropium (Ipratropium/Albuterol Sulfate 3 Ml Ampul.Neb) 3 ml INHALATION Q6HWA.RT [facility] Last Admin: 05/23/20 07:18 Dose: 3 ml Documented by: Apixaban (Apixaban 5 Mg Tablet) 5 mg PO BID [facility] Last Admin: 05/22/20 22:19 Dose: 5 mg Documented by: Atorvastatin Calcium (Atorvastatin Calcium 40 Mg Tablet) 40 mg PO DAILY [facility] Calamine/Phenol (Menthol/Lanolin/Calamine/Znox 113 Gm Tube) 1 applic TOPICAL BID [facility]; Protocol Last Admin: 05/22/20 22:15 Dose: 1 applic Documented by: Diltiazem HCl (Diltiazem Cd 240 Mg Capsule) 240 mg PO DAILY [facility] Furosemide (Furosemide 40 Mg Tablet) 40 mg PO DAILY [facility] ([facility] 100 Mg [facility]ule) [facility] Last Admin: 05/22/20 20:15 Dose: 100 mg Documented by: Guaifenesin (Guaifenesin 10 Ml Udc (200mg/10ml)) 20 ml PO Q4H PRN PRN PRN Reason: COUGH Hydralazine HCl (Hydralazine 20 Mg/Ml Vial) 10 mg IV Q4H PRN PRN PRN Reason: SBP > 160 Hydrochlorothiazide (Hydrochlorothiazide 12.5mg) 12.5 mg PO DAILY [facility] Insulin Human Lispro (Insulin Lispro 100 Unit/Ml Insuln.Pen) 0 unit SC ACHS [facility]; Protocol Last Admin: 05/23/20 06:21 Dose: Not Given Documented by: Ketorolac Tromethamine (Ketorolac 15 Mg/Ml Vial) 15 mg IV Q8 [facility] Stop: 05/23/20 14:01 Last Admin: 05/23/20 05:17 Dose: 15 mg Documented by: Lidocaine (Lidocaine 5% Patch) 4 patch TOPICAL DAILY [facility]; Protocol Loratadine (Loratadine 10 Mg Tablet) 10 mg PO DAILY [facility] Magnesium Hydroxide (Magnesium Hydroxide 30 Ml Udc) 30 ml PO DAILY PRN PRN PRN Reason: Constipation Melatonin (Melatonin 3 Mg Tablet) 3 mg PO QHS PRN PRN PRN Reason: INSOMNIA Metoprolol Tartrate (Metoprolol Tartrate 50 Mg Tablet) 50 mg PO BID [facility] Last Admin: 05/22/20 22:19 Dose: 50 mg Documented by: Multivitamins (Multivitamins,Therapeutic Tablet) 1 tablet PO DAILY [facility] Nitroglycerin (Nitroglycerin (Inpatient Use) 0.4 Mg Tab.Subl) 0.4 mg SL Q5M PRN PRN Reason: CARDIAC/CHEST PAIN Nystatin (Nystatin Powder 15gm Bottle) 1 applic TOPICAL TID [facility]; Protocol Last Admin: 05/23/20 05:17 Dose: 1 applic Documented by: Ondansetron HCl (Ondansetron 4 Mg/2 Ml Vial) 4 mg IV Q8H PRN PRN PRN Reason: NAUSEA/VOMITING Pantoprazole Sodium (Pantoprazole Sodium 20 Mg Tablet) 20 mg PO BID [facility] Last Admin: 05/22/20 22:19 Dose: 20 mg Documented by: Potassium Chloride (Potassium Chloride Oral Tablet 20 Meq) 20 meq PO DAILY [facility] Prochlorperazine Edisylate (Prochlorperazine 10 Mg/2 Ml Vial) 5 mg IV Q4H PRN PRN PRN Reason: Breakthrough nausea/vomiting Psyllium Hydrophilic Mucilloid (Psyllium 1 Packet) 1 packet PO DAILY PRN PRN PRN Reason: Constipation Senna/Docusate Sodium (Senna/Docusate Sodium 1 Tablet) 2 tablet PO BID PRN PRN PRN Reason: Constipation Sodium Chloride (0.9% Saline Lock 10 Ml Syringe) 10 - 40 ml IV UD PRN PRN Reason: SALINE FLUSH Last Admin: 05/22/20 20:13 Dose: 10 ml Documented by: Throat Lozenges (Benzocaine/Menthol 1 Lozenge) 1 lozenge MUCOUS MEM Q2H PRN PRN PRN Reason: SORE THROAT Valsartan (Valsartan 160 Mg Tablet) 320 mg PO DAILY [facility] Vital Signs/Narrative: Vital Signs Pulse Ox 05/23/20 03:46 94 Medical Necessity - Tobacco Use Smoking Status: Never smoker Assessment/Plan All Active Problems (Last Reviewed 05/11/20 @ 13:16 by Tracy Ayon) Right hip pain (Acute) Right knee pain (Acute) Dyspnea (Acute) Hx of abdominal hysterectomy (Resolved) History of arthroplasty of knee (Resolved) History of carpal tunnel release (Resolved) History of total hip replacement (Resolved) History of cardioversion (Acute) Hypercholesteremia (Acute) CVA (cerebral vascular accident) (Acute) Hepatitis A (Acute) Hypokalemia (Acute) The patient is a 79 y/o F with multiple comorbidities as mentioned above is being admitted for severe right hip and knee pain inability to move/ambulate. Patient was recently discharged from [facility] last Friday, could not walk last Friday and got admitted with severe pain. 1. 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 PT, OT. Pain medication and muscle relaxant. insurance risk manager consult. X-rays of hip/pelvis and knee show severe osteoarthrosis. 2. History of prior CVA with chronic right-sided hemiplegia: continue patient apixaban, hypertensive regimen, statin therapy. 3. COPD/Asthma: Hold patient home inhalers, maintain on ATC duonebs, PRN albuterol, incentive spirometry 4. Diabetes mellitus type II: Hold oral home regimen, ADA diet, accu checks with sliding scale insulin 5. PAF: continue patient home apixaban, diltiazem as well as metoprolol regimen with holding parameters. 6. CKD stage IIIa: Patient on Lasix, valsartan. HCTZ discontinued. Monitor kidney function as patient completed Toradol. 7. Hypertension and dyslipidemia: Patient on diltiazem, metoprolol and other medications as mentioned above. Continue home statin regimen. 8. GERD: Continue patient home PPI. 9. Chronic bilateral lower extremity lymphedema, large abdominal pannus and intertriginous dermatitis: On nystatin powder. Nurse Shashi wraps, elevation as #1 allows. 10. DVT prophylaxis: SCDs, continue patient home apixaban regimen. Clinical Impression(s) from Imaging Studies Hip/Pelvis X-Ray 05/22/20 15:30 IMPRESSION: 1. No acute findings. 2. Severe osteoarthrosis of the right hip. Knee X-Ray 05/22/20 15:30 IMPRESSION: Soft tissue swelling, otherwise no acute findings. Electronically Signed: Celestina Finn MD at 16:42 EDT Tel , Service support , Chest X-Ray 05/22/20 16:00 IMPRESSION: 1. No acute findings. Electronically Signed: Celestina Finn MD at 16:34 EDT Tel , Service support , Inpatient E&M: [id number] [facility] H[facility] L2
[2020-05-23] MEDS: dilTIAZem CD 240 MG Capsule PO (08:26)
[2020-05-23] MEDS: Menthol/Lanolin/Calamine/Znox 113 GM Tube 1 APPLIC TOPICAL ×2 (08:26→20:35)
[2020-05-23] MEDS: Loratadine 10 MG Tablet PO (08:26)
[2020-05-23] MEDS: Gabapentin 100 MG Capsule PO ×2 (08:26→18:11)
[2020-05-23] MEDS: hydroCHLOROthiazide 12.5mg 12.5 MG PO (08:27)
[2020-05-23] MEDS: APIXABAN 5 MG TABLET PO ×2 (08:27→21:46)
[2020-05-23] MEDS: Potassium Chloride Oral Tablet 20 MEQ PO (08:27)
[2020-05-23] MEDS: Furosemide 40 MG Tablet PO (08:28)
[2020-05-23] MEDS: Multivitamins,Therapeutic Tablet 1 TABLET PO (08:28)
[2020-05-23] MEDS: Atorvastatin Calcium 40 MG Tablet PO (08:28)
[2020-05-23] MEDS: Pantoprazole Sodium 20 MG Tablet PO ×2 (08:28→21:46)
[2020-05-23] MEDS: Metoprolol Tartrate 50 MG Tablet PO ×2 (08:28→21:46)
[2020-05-23] MEDS: Lidocaine 5% Patch 4 PATCH TOPICAL (08:29)
--- NOTE | 2020-05-23 08:55 | CASEMGMT ---
Social Work Note Per color matcher questions, pt has completed HCPOA and LW, haven't provided copies to [facility], but is able to bring in copies. Ameena Monreal BOILER SERVICE TECHNICIAN, RAIL WALKER
--- NOTE | 2020-05-23 09:16 | NURSING ---
Was asked to see patient for redness and moisture to abdominal folds. patient with a very large pannus. there is some malodor noted when lifting pannus. intertrigo noted. patient is getting nystatin powder applied and pillow cases have been placed to folds to absorb moisture. gently washed abdominal folds with soap and water. pat dry. lightly dusted folds with nystatin powder and placed new pillow cases. nursing states the redness has greatly improved already. pt tolerated well. will monitor.
[2020-05-23 11:55] LABS: Bedside Glucose 110 mg/dL (70-110)
--- NOTE | 2020-05-23 12:30 | CASEMGMT ---
Addendum entered by Monica Barrientos 05/23/20 15:42: Received tc from [facility] stating they are active with patient as of 05/18/20. [phone]. Addendum entered by Monica Barrientos 05/23/20 13:05: Pt reports she does not wear her O2 at home. States she is supposed to wear 2L at HS. States it does not help her. Original Note: CHEL BRAVO Assessment: Face to Face with pt for initial transition planning/care coordination assessment. RN SHELLY introduced self and role at [facility], pt voices understanding and consents to assessment. Pt is A/O x4 and answers all questions appropriately at this time. Pt sitting up in bed starting lunch with O2 on 2L NC in no distress. Care providers, pharmacy, and demographics verified/updated. Admitting Dx: R knee and hip pain PCP: Salomon Haque BUDGET OFFICER Specialists: Andres, jamey; giana Baez Preferred Pharmacy: [facility] Insurance: [email or web address] Prescription Benefit: yes [employer] LW/HPOA: Pt reports having a LW and DPOA. She is aware that it is not on file. DPOA is dtr Velia Mauro LNOK: Farhan Ray, son; Velia Mauro, dtr Living Arrangements: Pt lives alone in a single story condo with no steps to enter. Pt states she was independent with ADL's up to the last month and a half. Transportation: Pt states her son provides transportation for her. She denies issues with transportation. DME/HHC/SNF: Pt reports having a cane, 3 walkers, transport w/c, roundabout power scooter and O2 concentrator at home through [facility]. Pt recently left [facility] ( last Fri) and was to have home health through [place]. She states they have not started yet. Pt reports that she knew she was not ready to leave [facility] but she could not afford to stay. Pt states no further concerns/needs. CM to follow therapy. Advised pt to ask CM if any further question/concerns/needs arise, voices understanding. Pt Goal: Home with HH but pt states if she does not get stronger, she can not go home. Plan: TBD pending therapy.
--- NOTE | 2020-05-23 12:43 | CASEMGMT ---
Social Work Note Pt was recently at [facility], left last Friday. Pt states she wants to return home if able to, states she was cut by insurance at SNF. RONALD placed a call to Bailee at [facility]. Bailee states pt was at [facility] from 04/18/20-05/17/20, has used all 20 Medicare days, are in copay days. RONALD asked Bailee about pt's secondary insurance ([employer]) picking up copay. Bailee states the secondary insurance may picker/puller the copay but would have to check with secondary insurance policy. RONALD to continue to follow in the event pt needs SNF again. Ameena Monreal NETWORK CONTRACT MANAGER, FILM LIBRARIAN
[2020-05-23] MEDS: cycloBENZAPRine HCl 10 MG Tablet PO ×2 (14:33→21:46)
[2020-05-23] MEDS: Mag Hydrox/Al Hydrox/Simeth 30 ML UDC PO (16:32)
[2020-05-23 17:15] LABS: Bedside Glucose 98 mg/dL (70-110)
[2020-05-23] MEDS: HYDROmorphone 0.5 MG/0.5 ML SYRINGE IV (20:33)
[2020-05-23 22:00] LABS: Bedside Glucose 114 mg/dL (70-110)
[2020-05-24] VITALS (9 sets, daily range): BP systolic 108–115; BP diastolic 49–66; PULSE 66–81; RESP 18–24; TEMP 36.2–36.6; O2SAT 94–100
[2020-05-24] MEDS: cycloBENZAPRine HCl 10 MG Tablet PO ×2 (06:28→15:16)
[2020-05-24] MEDS: Nystatin Powder 15gm Bottle 1 APPLIC TOPICAL (06:29)
[2020-05-24 06:45] LABS: Bedside Glucose 99 mg/dL (70-110)
[2020-05-24] MEDS: Ipratropium/Albuterol Sulfate 3 ML AMPUL.NEB INHALATION (07:39)
[2020-05-24] MEDS: Gabapentin 100 MG Capsule PO ×2 (08:11→16:36)
[2020-05-24] MEDS: Atorvastatin Calcium 40 MG Tablet PO (09:50)
[2020-05-24] MEDS: Loratadine 10 MG Tablet PO (09:50)
[2020-05-24] MEDS: Furosemide 40 MG Tablet PO (09:51)
[2020-05-24] MEDS: Multivitamins,Therapeutic Tablet 1 TABLET PO (09:51)
[2020-05-24] MEDS: Metoprolol Tartrate 50 MG Tablet PO (09:52)
[2020-05-24] MEDS: Pantoprazole Sodium 20 MG Tablet PO (09:52)
[2020-05-24] MEDS: APIXABAN 5 MG TABLET PO (09:52)
[2020-05-24] MEDS: dilTIAZem CD 240 MG Capsule PO (09:52)
[2020-05-24] MEDS: Menthol/Lanolin/Calamine/Znox 113 GM Tube 1 APPLIC TOPICAL (09:54)
[2020-05-24] MEDS: Lidocaine 5% Patch 4 PATCH TOPICAL (09:55)
[2020-05-24] MEDS: HYDROmorphone 0.5 MG/0.5 ML SYRINGE IV (09:59)
--- NOTE | 2020-05-24 11:06 | PCM.TXEXTCAR ---
- Diet 05/23/20 11:39 Diet: Cardiac: Calorie-Controlled Food consistency:: Regular Liquid Consistency:: Regular/Thin Dietary Modifications:: Consistent Carbohydrate Sodium Restricted Is pt able to select menu?: Yes How many daily calories?: 1600 calorie - Routine Orders/Code Status Suppository Type: Dulcolax 10mg Suppository Frequency: Daily PRN Routine Lab Work: BMP - and Mg in 1 week, pt on diuretics Code Status: Full Code - Wound(s) Left Knee Wound Type: scabs - Therapies Weight Bearing: Weight bearing as tolerated Extremity Affected:: Bilateral Lower Physical Therapy: Eval and Treat Occupational Therapy: Eval and Treat Speech Therapy: Eval and Treat - Allergies/Procedures Done in Hospital Allergies/Adverse Reactions: Allergies acetaminophen [From Darvocet-N] Allergy (Verified 05/22/20 15:19) Shortness of breath carvedilol Allergy (Verified 05/22/20 18:56) ?dizzy celecoxib Allergy (Verified 05/22/20 18:56) Rash codeine Allergy (Verified 05/22/20 15:19) Shortness of breath etodolac Allergy (Verified 05/22/20 18:56) Rash irbesartan Allergy (Verified 05/22/20 18:56) hypertensive latex Allergy (Verified 05/22/20 18:56) skin peels lisinopril Allergy (Verified 05/22/20 15:19) unknown losartan Allergy (Verified 05/22/20 15:19) unknown morphine Allergy (Verified 05/22/20 15:19) Shortness of breath Opioids - Morphine Analogues Allergy (Verified 05/22/20 18:56) Shortness of breath propoxyphene [From Darvon] Allergy (Verified 05/22/20 18:56) Shortness of breath propoxyphene napsylate [From Darvocet-N] Allergy (Verified 05/22/20 15:19) Shortness of breath sotalol Allergy (Verified 05/22/20 15:19) unknown - Type of Care/Length of Stay Estimated LOS: Convalescent Care Less Than 30 days Type of Care Needed: Skilled Rehab Potential: Good Prognosis: Good - Additional Orders/Day of Discharge Day of Discharge: 05/24/20 - Dietary and Speech Recommendations Dietitian Recommendations/Changes: Will change diet to 1600 calorie; carb-controlled; cardiac; sodium-restricted diet; FR as indicated. - Follow Up Care Primary Care Physician: Salomon Haque CORPORATE WEBMASTER, CORPORATE WEBMASTER-C [Primary Care Provider] -
--- NOTE | 2020-05-24 11:14 | CASEMGMT ---
Addendum entered by Ameena Monreal 05/24/20 14:18: SW placed a call to Hudson at [facility] and left message requesting update on referral. SW waiting for call back. Original Note: Social Work Note SW updated that pt is stating she cannot go home, would like a SNF. Pt is medically ready for discharge today. SW in to speak with pt. SW introduced self and role at [facility]. Patient was provided a list of SNF providers including quality and resource use data and consistent with the patient?s preferred geographic region, medical needs, and insurance network. Pt states she was recently at [facility] and would like to return there if possible. SW informed pt that she is in her copays day under Medicare and this worker cannot guarantee her secondary insurance will pay for the copay. Pt states understnanding, agreeable to this worker sending referral to [facility]. SW placed a call to [place] and provided referral. SW faxed referral. Plan: [facility] pending acceptance Ameena Monreal PERFUME MAKER, BLIND INSTALLER
[2020-05-24 11:20] LABS: Bedside Glucose 121 mg/dL (70-110)
--- NOTE | 2020-05-24 15:08 | DS.PCM_ITS ---
Discharge Date and Diagnosis - Problem List Patient Problems: Active and Suspected Problems (Last Reviewed 05/11/20 @ 13:16 by Tracy Ayon) Right hip pain (Acute) Right knee pain (Acute) Hypercholesteremia (Acute) Date of Admission: 05/22/20 Date of Discharge: 05/24/20 - Primary Discharge Diagnosis Acute Problems: Active Problems (Last Reviewed 05/11/20 @ 13:16 by Trayc Ayon) Right hip pain (Acute) Right knee pain (Acute) Hypercholesteremia (Acute) - Secondary Discharge Diagnosis Chronic Problems: Chronic Problems (Last Reviewed 05/11/20 @ 13:16 by Tracy Ayon) Pulmonary hypertension (Chronic) Morbid obesity (Chronic) CKD (chronic kidney disease) (Chronic) Lymphedema (Chronic) Atrial fibrillation (Chronic) COPD with asthma (Chronic) HTN (hypertension) (Chronic) CVA (cerebral vascular accident) (Chronic) Dyslipidemia (Chronic) DM2 (diabetes mellitus, type 2) (Chronic) Hospital Course and Treatment Consultations 05/23/20 06:35 Consult: Onc/Wound/single end sewer Routine Comment: Reason for Consult:: excoraited groin and abd folds. Operations: None Summary of Care Provided: [] The patient is a 79 y/o F with multiple comorbidities as mentioned above is being admitted for severe right hip and knee pain inability to move/ambulate. Patient was recently discharged from [facility] last Friday, could not walk last Friday and got admitted with severe pain. 1. 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 PT, OT. Pain medication and muscle relaxant. meeting manager consult. X-rays of hip/pelvis and knee show severe osteoarthrosis. I talked to the daughter and gave the option to follow with Dr. Landers for further management degenerative arthritis. Earlier Dr. Rocha said she is very high risk for joint replacement surgery. 2. History of prior CVA with chronic right-sided hemiplegia: continue patient apixaban, hypertensive regimen, statin therapy. 3. COPD/Asthma/obstructive sleep apnea: Hold patient home inhalers, maintain on ATC duonebs, PRN albuterol, incentive spirometry. She did not had formal sleep study or PFT. Advised to follow-up in pulmonary clinic in 2 to 4 weeks for formal outpatient testing. 4. Diabetes mellitus type II: Hold oral home regimen, ADA diet, accu checks with sliding scale insulin 5. PAF/possible chronic diastolic heart failure: continue patient home apixaban, diltiazem as well as metoprolol regimen with holding parameters. As per daughter, she had echo done in outside hospital last 1 year and was told she has congestive heart failure but exact type, etiology and classification unclear. On Lasix 40 mg twice daily which she is to once daily because of kidney function. 6. CKD stage IIIa: Patient on Lasix, valsartan. HCTZ resumed. Monitor kidney function as patient completed Toradol. 7. Hypertension and dyslipidemia: Patient on diltiazem, metoprolol and other medications as mentioned above. Continue home statin regimen. 8. GERD: Continue patient home PPI. 9. Chronic bilateral lower extremity lymphedema, large abdominal pannus and intertriginous dermatitis: On nystatin powder. Nurse Shashi wraps, elevation as #1 allows. 10. DVT prophylaxis: SCDs, continue patient home apixaban regimen. Discharge medication reconciliation done. Discharge follow-up instructions completed. Discharge process discussed with the patient and her daughter on phone and all questions were answered to patient's satisfaction. Patient is discharged to [facility]. Total time spent, exact 35 minutes on discharge meds reconciliation, examination, coordination of care with nurses and ancillary staff, review of imaging and blood test and discussion with the patient on follow-up instructions Patient Problems: Active and Suspected Problems (Last Reviewed 05/11/20 @ 13:16 by Tracy Ayon) Right hip pain (Acute) Right knee pain (Acute) Hypercholesteremia (Acute) Objective: Seen and examined. Pain is well controlled. Rest degenerative arthritis or chronic features. General: Alert, Oriented x3, Cooperative, morbid obesity, BMI 52.7 kg/m? HEENT: Atraumatic, PERRLA, EOMI, Normocephalic Oral: No Gingival or Mucosal Lesions/ Ulcerations Neck: Supple, No JVD, Negative Carotid Bruits Lungs: Air entry diminished in bilateral lung bases. No crepitation/rhonchi Cardiovascular: Regular rate, Regular Rhythm, Normal S1, Normal S2, No murmurs Abdomen: Large abdominal pannus with subcutaneous edema. Bowel Sounds Present, Soft, Non Tender. : No renal angle tenderness. No suprapubic tenderness. Extremities: No ankle edema, Capillary Refill Less than 3 Seconds Skin: No rashes, No breakdown Musculoskeletal: Tenderness present over right hip and right knee joints. ROM mild bilateral hips, knees are severely impaired. Neurological: Cranial nerves II-XII grossly intact, Deep Tendon Reflexes 2+/4 Psych/Mental Status: Flat affect. - Physical Exam Vitals/I&O's: Vital Signs Temp Pulse Resp BP Pulse Ox 97.1 F L 66 20 H 115/60 94 05/24/20 10:17 05/24/20 10:17 05/24/20 10:17 05/24/20 10:17 05/24/20 10:17 Oxygen Flow Rate (L/min) 1 Oxygen Delivery Method Nasal Cannula Weight: 278 lb 10.629 oz Body Mass Index (BMI) 52.4 Finger Stick Blood Glucose 149 Intake and Output for Last 24 Hours 05/22/20 05/23/20 05/24/20 23:59 23:59 23:59 Intake Total 2320 / 2320 Output Total 1300 / 1550 850 / 850 Balance 1020 / 770 -850 / -850 Laboratory Results 05/23/20 16:34: POC Glucose 98 05/23/20 21:44: POC Glucose 114 H 05/24/20 06:28: POC Glucose 99 05/24/20 11:15: POC Glucose 121 H Current Medications Acetaminophen (Acetaminophen 325 Mg Tablet) 650 mg PO Q4H PRN PRN PRN Reason: Pain Score 1-10 Last Admin: 05/23/20 18:13 Dose: 650 mg Documented by: Al Hydroxide/Mg Hydroxide (Mag Hydrox/Al Hydrox/Simeth 30 Ml Udc) 30 ml PO Q6H PRN PRN PRN Reason: Gastric Burning Last Admin: 05/23/20 16:32 Dose: 30 ml Documented by: Albuterol Sulfate (Albuterol 2.5 Mg/3 Ml Vial.Neb.) 2.5 mg INHALATION Q2H PRN PRN PRN Reason: Dyspnea, wheezing Last Admin: 05/22/20 21:20 Dose: 2.5 mg Documented by: Albuterol/Ipratropium (Ipratropium/Albuterol Sulfate 3 Ml Ampul.Neb) 3 ml I NHALATION Q6HWA.RT AVANI Last Admin: 05/24/20 07:39 Dose: 3 ml Documented by: Apixaban (Apixaban 5 Mg Tablet) 5 mg PO BID [facility] Last Admin: 05/24/20 09:52 Dose: 5 mg Documented by: Atorvastatin Calcium (Atorvastatin Calcium 40 Mg Tablet) 40 mg PO DAILY [facility] Last Admin: 05/24/20 09:50 Dose: 40 mg Documented by: Calamine/Phenol (Menthol/Lanolin/Calamine/Znox 113 Gm Tube) 1 applic TOPICAL B ID [facility]; Protocol Last Admin: 05/24/20 09:54 Dose: 1 applic Documented by: Cyclobenzaprine HCl (Cyclobenzaprine Hcl 10 Mg Tablet) 10 mg PO TID [facility] Last Admin: 05/24/20 06:28 Dose: 10 mg Documented by: Diltiazem HCl (Diltiazem Cd 240 Mg Capsule) 240 mg PO DAILY [facility] Last Admin: 05/24/20 09:52 Dose: 240 mg Documented by: Flunisolide (Flunisolide 0.025% 25 Ml Nasal.Sry) 1 spray NASAL DAILY [facility] Last Admin: 05/24/20 10:04 Dose: 1 spray Documented by: Furosemide (Furosemide 40 Mg Tablet) 40 mg PO DAILY [facility] Last Admin: 05/24/20 09:51 Dose: 40 mg Documented by: Gabapentin (Gabapentin 100 Mg Capsule) 100 mg PO BIDCM [facility] Last Admin: 05/24/20 08:11 Dose: 100 mg Documented by: Hydralazine HCl (Hydralazine 20 Mg/Ml Vial) 10 mg IV Q4H PRN PRN PRN Reason: SBP > 160 Hydromorphone HCl (Hydromorphone 0.5 Mg/0.5 Ml Syringe) 0.5 mg IV Q3H PRN PRN PRN Reason: Pain Score 6-10 Last Admin: 05/24/20 09:59 Dose: 0.5 mg Documented by: Insulin Human Lispro (Insulin Lispro 100 Unit/Ml Insuln.Pen) 0 unit SC ACHS [facility]; Protocol Last Admin: 05/24/20 11:16 Dose: Not Given Documented by: Lidocaine (Lidocaine 5% Patch) 4 patch TOPICAL DAILY [facility]; Protocol Last Admin: 05/24/20 09:55 Dose: 4 patch Documented by: Loratadine (Loratadine 10 Mg Tablet) 10 mg PO DAILY [facility] Last Admin: 05/24/20 09:50 Dose: 10 mg Documented by: Melatonin (Melatonin 3 Mg Tablet) 3 mg PO QHS PRN PRN PRN Reason: INSOMNIA Metoprolol Tartrate (Metoprolol Tartrate 50 Mg Tablet) 50 mg PO BID [facility] Last Admin: 05/24/20 09:52 Dose: 50 mg Documented by: Multivitamins (Multivitamins,Therapeutic Tablet) 1 tablet PO DAILY [facility] Last Admin: 05/24/20 09:51 Dose: 1 tablet Documented by: Nitroglycerin (Nitroglycerin (Inpatient Use) 0.4 Mg Tab.Subl) 0.4 mg SL Q5M PRN PRN Reason: CARDIAC/CHEST PAIN Nystatin (Nystatin Powder 15gm Bottle) 1 applic TOPICAL TID [facility]; Protocol Last Admin: 05/24/20 06:29 Dose: 1 applic Documented by: Ondansetron HCl (Ondansetron 4 Mg/2 Ml Vial) 4 mg IV Q8H PRN PRN PRN Reason: NAUSEA/VOMITING Pantoprazole Sodium (Pantoprazole Sodium 20 Mg Tablet) 20 mg PO BID [facility] Last Admin: 05/24/20 09:52 Dose: 20 mg Documented by: Prochlorperazine Edisylate (Prochlorperazine 10 Mg/2 Ml Vial) 5 mg IV Q4H PRN PRN PRN Reason: Breakthrough nausea/vomiting Psyllium Hydrophilic Mucilloid (Psyllium 1 Packet) 1 packet PO DAILY PRN PRN PRN Reason: Constipation Senna/Docusate Sodium (Senna/Docusate Sodium 1 Tablet) 2 tablet PO BID PRN PRN PRN Reason: Constipation Sodium Chloride (0.9% Saline Lock 10 Ml Syringe) 10 - 40 ml IV UD PRN PRN Reason: SALINE FLUSH Last Admin: 05/22/20 20:13 Dose: 10 ml Documented by: Throat Lozenges (Benzocaine/Menthol 1 Lozenge) 1 lozenge MUCOUS MEM Q2H PRN PRN PRN Reason: SORE THROAT Valsartan (Valsartan 160 Mg Tablet) 320 mg PO DAILY [facility] Last Admin: 05/24/20 09:52 Dose: 320 mg Documented by: Home Medications: Medications to take at Discharge Albuterol Inhaler [Ventolin Hfa] 1 - 2 puff INHALATION Q4H PRN PRN 06/04/13 Iivwi-K-Pvrzbmepmufgh [Beano] 1 each PO TIDCM 04/18/14 Lansoprazole [Prevacid] 30 mg PO DAILY 06/04/13 Multivitamins,Therapeutic [Multivitamin] 1 tablet PO DAILY 06/04/13 Valsartan/Hydrochlorothiazide [Diovan Hct 320-12.5 MG Tab] 1 tablet PO DAILY 06/04/13 apixaban 5 mg tablet 5 mg PO BID 05/10/20 atorvastatin 40 mg tablet 40 mg PO DAILY 05/10/20 diltiazem HCl 240 mg capsule,extended release 24 hr 240 mg PO DAILY 05/10/20 flunisolide 25 mcg (0.025 %) nasal spray 1 spray INTRANASAL DAILY ml 05/10/20 metoprolol tartrate 50 mg tablet 50 mg PO BID 05/10/20 potassium chloride 20 mEq tablet,extended release 20 meq PO DAILY 05/10/20 umeclidinium 62.5 mcg-vilanterol 25 mcg/actuation powdr for inhalation 1 inh INHALATION DAILY 05/10/20 Fexofenadine HCl [Aller-Ease] 60 mg PO DAILY PRN PRN #0 tablet 05/24/20 Furosemide 40 mg PO DAILY #0 05/24/20 Nystatin Powder [Mycostatin Powder] 1 applic TOPICAL TID bottle 05/24/20 Oxycodone [Oxyir] 5 mg PO Q4H PRN PRN 2 Days #10 tab 05/24/20 Senna/Docusate Sodium [Senokot-S] 2 tablet PO BID PRN PRN tablet 05/24/20 cycloBENZAPRine HCl [Flexeril] 10 mg PO TID PRN PRN tablet 05/24/20 Following Prescriptions Were Given to Patient: Oxycodone [Oxyir] 5 mg PO Q4H PRN PRN 2 Days #10 tab PRN Reason: Pain Score 6-10 Prescription Printed Primary Care Physician: Salomon Haque HOUSEHOLD APPLIANCES SERVICE TECHNICIAN, HOUSEHOLD APPLIANCES SERVICE TECHNICIAN-C [Primary Care Provider] - Medical Necessity - Tobacco Use Smoking Status: Never smoker Meaningful Use Info Meaningful Use Diagnoses (Choose all that apply): None applicable OBSV E&M: 27632 Observation care discharge
--- NOTE | 2020-05-24 16:30 | CASEMGMT ---
Social Work Note SW received message from Bailee at [facility] stating they are able to accept pt today. Physician updated. SW in to speak with pt. SW updated pt on approval to [facility] and discharge today. Pt states understanding. RONALD faxed completed discharge paperwork to [facility] including transfer to extended care facility, signed medication list, any scripts, COVID test and COVID screening tool, and convalescent 7000. Original in SNF folder and copy on pt's chart. RONALD completed convalescent 7000 in [facility]. Original in SNF folder and copy on pt's chart. RONALD accessed trip assist and arranged transportation via cot for 5:00pm. Transportation form completed and placed on SNF folder and copy on pt's chart. RN updated on transportation time. SW in to speak with pt. SW updated pt on transportation time. Pt states she will update her daughter on transportation time and discharge as her daughter will need to bring her clothes. SW informed pt that her daughter can bring clothes to [facility]. Pt states understanding. RONALD placed a call to Bailee at [facility] and updated her on transportation time. Plan: [facility] skilled today with Physician's transporting pt via cot at 5:00pm Ameena Monreal MSW, ANTIQUE CLOCK REPAIRER
[2020-05-24] MEDS: Acetaminophen 325 MG Tablet 650 MG PO (16:36)
[2020-05-24 16:45] LABS: Bedside Glucose 131 mg/dL (70-110)
--- NOTE | 2020-05-24 16:51 | NURSING ---
Report called to CHEL Littlejohn at the transitional unit at [facility].
== END 2020-05-24 17:12 | disposition skilled nursing facility (03) | DRG 554 ==
LOC: ED 15:47 → MS3 17:53
PROVIDERS: Admitting Provider Family Medicine; Emergency Provider Student in an Organized Health Care Education/Training Program; PCP Nurse Practitioner Family; Visit Provider Internal Medicine
DX: M17.11 Unilateral primary osteoarthritis, right knee (principal); I69.351 Hemiplegia and hemiparesis following cerebral infarction affecting right dominant side; Z68.43 Body mass index [BMI] 50.0-59.9, adult; I13.0 Hypertensive heart and chronic kidney disease with heart failure and stage 1 through stage 4 chronic kidney disease, or unspecified chronic kidney disease; I50.32 Chronic diastolic (congestive) heart failure; M16.11 Unilateral primary osteoarthritis, right hip; M79.89 Other specified soft tissue disorders; G89.29 Other chronic pain; E11.22 Type 2 diabetes mellitus with diabetic chronic kidney disease; N18.31 Chronic kidney disease, stage 3a; R62.7 Adult failure to thrive; R26.2 Difficulty in walking, not elsewhere classified; I89.0 Lymphedema, not elsewhere classified; I48.0 Paroxysmal atrial fibrillation; I27.20 Pulmonary hypertension, unspecified; J44.9 Chronic obstructive pulmonary disease, unspecified; E78.5 Hyperlipidemia, unspecified; K21.9 Gastro-esophageal reflux disease without esophagitis; G47.33 Obstructive sleep apnea (adult) (pediatric); E66.01 Morbid (severe) obesity due to excess calories; Z79.01 Long term (current) use of anticoagulants; Z79.899 Other long term (current) drug therapy; Z96.642 Presence of left artificial hip joint; Z96.651 Presence of right artificial knee joint
CPT/HCPCS: 71045; 73502; 73560; 80053; 82962; 83735; 83880; 84484; 85025; 87426; 93005; 94640; 97110; 97162; 97166; 97530; 97802; 99251; 99285; J7030; A4216; G0463

== ENCOUNTER → 2020-06-08 10:04 | Outpatient (CLI) | payer MEDICARE, OTHER, SELFPAY ==
[2020-05-11 13:21] VITALS: BMI 50.1
[2020-06-01 11:07] VITALS: BMI 52.4
--- NOTE | 2020-06-09 12:59 | PFT ---
INTRODUCTION: The patient is a 79-year-old female that presents for pulmonary function studies secondary to a diagnosis of dyspnea. Respiratory therapy reported that the patient arrived to testing on a cot and was unable to walk or stand. Therefore, plethysmography was unable to be obtained. INTERPRETATION: Forced expiration spirometry demonstrates the presence of a severe large airways obstructive ventilatory defect. FVC is reduced at 49% of predicted which could also suggest the possibility of a restrictive ventilatory impairment. However, lung volumes would need to be completed to confirm. There was no significant response to aerosolized bronchodilators. Diffusing capacity by single breath CO was severely reduced at 28% of predicted. IMPRESSION: Irreversible severe large airways obstructive ventilatory defect with symmetric reduction in diffusing capacity. FVC is also reduced which could suggest an underlying restrictive ventilatory impairment as well. However, lung volumes would need to be completed to confirm this assertion.
== END ==
LOC: PSN 10:04
PROVIDERS: PCP Nurse Practitioner Family; Referring Provider Internal Medicine Critical Care Medicine; Visit Provider Internal Medicine Critical Care Medicine
DX: R06.00 Dyspnea, unspecified (principal)
CPT/HCPCS: 94060; 94729

== ENCOUNTER → 2020-07-05 05:00 | Outpatient (REF) | payer MEDICARE, OTHER, SELFPAY ==
[2020-06-23 14:18] VITALS: BMI 52.4
[2020-07-05 07:53] LABS: Hematocrit 38.2 % (37-47); Hemoglobin 11.8 g/dL (12.0-15.0); Mean Corp Hgb Conc 30.9 g/dL (32-36); Mean Corpuscular Hgb 25.5 pg (27.0-32.0); Mean Corpuscular Volume 82.5 fL (81-99); Mean Platelet Vol. 11.1 fl (6.2-12.0); POSITIVE MORPHOLOGY YES; Platelet Count 253 K/mm3 (150-450); RBC Distribution Width CV 20.9 % (11.6-14.6); RBC Distribution Width SD 61.7 fl (35.1-43.9); Red Blood Count 4.63 M/mm3 (4.2-5.4); White Blood Count 6.6 K/mm3 (4.4-11.0)
[2020-07-05 07:54] LABS: Scan Indicated on CBC? Y/N YES- FLAGS NOTED
[2020-07-05 08:06] LABS: Anion Gap 5 (5-15); BUN 41 mg/dL (7-18); BUN/Creat Ratio 39.4 RATIO (10-20); Calcium,Total 8.9 mg/dL (8.5-10.1); Chloride 104 mmol/L (98-107); Creatinine, Serum 1.04 mg/dL (0.55-1.02); EST Glomerular Filtration Rate 54 mL/min (>60); Est Glom Filt Rate - Afr Amer 66 mL/min (>60); Glucose 96 mg/dL (74-106); Potassium 3.5 mmol/L (3.5-5.1); Sodium Level 139 mmol/L (136-145)
== END ==
LOC: OLS.WHLEAS 05:00
PROVIDERS: PCP Nurse Practitioner Family; Visit Provider Family Medicine
DX: J44.1 Chronic obstructive pulmonary disease with (acute) exacerbation (principal); M16.11 Unilateral primary osteoarthritis, right hip; I50.32 Chronic diastolic (congestive) heart failure; R06.2 Wheezing; M25.551 Pain in right hip
CPT/HCPCS: 36415; 80048; 85027

== ENCOUNTER → 2020-07-19 14:30 | Outpatient (REF) | payer MEDICARE, OTHER, SELFPAY ==
[2020-06-23 14:18] VITALS: BMI 52.4
[2020-07-20 08:07] LABS: Color, Urine Brown (Yellow); Glucose, Dipstick Normal (Normal); Ketone-Dipstick Negative (Negative); Leukocyte Esterase-Dipstick 500 /ul (Negative); Nitrite-Dipstick Negative (Negative); Occult Blood-Urine 250 /ul (Negative); Protein-Dipstick 100 mg/dl (Negative); Specific Gravity, Urine 1.015 (1.002-1.030); Urine Bilirubin Dipstick Negative (Negative); Urine Clarity Turbid (Clear); Urine Urobilinogen Normal (Normal)
== END ==
LOC: OLS.WHLEAS 14:30
PROVIDERS: PCP Nurse Practitioner Family; Visit Provider Family Medicine
DX: N39.0 Urinary tract infection, site not specified (principal); M16.11 Unilateral primary osteoarthritis, right hip; I50.32 Chronic diastolic (congestive) heart failure; J44.1 Chronic obstructive pulmonary disease with (acute) exacerbation; J45.909 Unspecified asthma, uncomplicated
CPT/HCPCS: 81002; 87077; 87086; 87088; 87186

== ENCOUNTER → 2020-08-02 05:00 | Outpatient (REF) | payer MEDICARE, OTHER, SELFPAY ==
[2020-06-23 14:18] VITALS: BMI 52.4
[2020-08-02 08:10] LABS: Hematocrit 38.7 % (37-47); Mean Corpuscular Hgb 26.5 pg (27.0-32.0); Mean Corpuscular Volume 85.4 fL (81-99); Mean Platelet Vol. 9.9 fl (6.2-12.0); POSITIVE MORPHOLOGY YES; Platelet Count 329 K/mm3 (150-450); RBC Distribution Width CV 22.9 % (11.6-14.6); RBC Distribution Width SD 70.4 fl (35.1-43.9); Red Blood Count 4.53 M/mm3 (4.2-5.4); White Blood Count 9.7 K/mm3 (4.4-11.0)
[2020-08-02 08:11] LABS: Scan Indicated on CBC? Y/N YES- FLAGS NOTED
[2020-08-02 08:24] LABS: Anion Gap 5 (5-15); BUN 16 mg/dL (7-18); Calcium,Total 8.9 mg/dL (8.5-10.1); Chloride 99 mmol/L (98-107); Cholesterol 120 mg/dL (200); Creatinine, Serum 0.84 mg/dL (0.55-1.02); EST Glomerular Filtration Rate 69 mL/min (>60); Est Glom Filt Rate - Afr Amer 84 mL/min (>60); Glucose 110 mg/dL (74-106); High Density Lipoprotein 45 mg/dL; Potassium 2.9 mmol/L (3.5-5.1); Sodium Level 137 mmol/L (136-145); Triglycerides 154 mg/dL; Very Low Density Lipoprotein 31 mg/dL (5-40)
== END ==
LOC: OLS.WHLEAS 05:00
PROVIDERS: PCP Nurse Practitioner Family; Visit Provider Family Medicine
DX: J44.1 Chronic obstructive pulmonary disease with (acute) exacerbation (principal); M16.11 Unilateral primary osteoarthritis, right hip; I50.32 Chronic diastolic (congestive) heart failure; R06.2 Wheezing; M25.551 Pain in right hip; B15.9 Hepatitis A without hepatic coma
CPT/HCPCS: 36415; 80048; 80061; 85027

== ENCOUNTER → 2020-08-17 05:00 | Outpatient (REF) | payer MEDICARE, OTHER, SELFPAY ==
[2020-06-23 14:18] VITALS: BMI 52.4
[2020-08-17 08:47] LABS: Potassium 3.6 mmol/L (3.5-5.1)
== END ==
LOC: OLS.WHLEAS 05:00
PROVIDERS: PCP Nurse Practitioner Family; Visit Provider Family Medicine
DX: E87.6 Hypokalemia (principal); M16.11 Unilateral primary osteoarthritis, right hip; I50.32 Chronic diastolic (congestive) heart failure; J44.1 Chronic obstructive pulmonary disease with (acute) exacerbation; J45.909 Unspecified asthma, uncomplicated
CPT/HCPCS: 36415; 84132

== ENCOUNTER → 2020-09-06 05:00 | Outpatient (REF) | payer MEDICARE, OTHER, SELFPAY ==
[2020-06-23 14:18] VITALS: BMI 52.4
[2020-09-06 08:23] LABS: Hematocrit 38.8 % (37-47); Hemoglobin 12.1 g/dL (12.0-15.0); Mean Corp Hgb Conc 31.2 g/dL (32-36); Mean Corpuscular Hgb 28.7 pg (27.0-32.0); Mean Corpuscular Volume 91.9 fL (81-99); Mean Platelet Vol. 10.4 fl (6.2-12.0); Platelet Count 320 K/mm3 (150-450); RBC Distribution Width CV 18.3 % (11.6-14.6); RBC Distribution Width SD 62.4 fl (35.1-43.9); Red Blood Count 4.22 M/mm3 (4.2-5.4); White Blood Count 7.3 K/mm3 (4.4-11.0)
[2020-09-06 08:39] LABS: Anion Gap 6 (5-15); BUN 18 mg/dL (7-18); BUN/Creat Ratio 19.9 RATIO (10-20); Calcium,Total 8.9 mg/dL (8.5-10.1); Chloride 103 mmol/L (98-107); EST Glomerular Filtration Rate 64 mL/min (>60); Est Glom Filt Rate - Afr Amer 77 mL/min (>60); Glucose 92 mg/dL (74-106); Potassium 3.5 mmol/L (3.5-5.1); Sodium Level 140 mmol/L (136-145)
== END ==
LOC: OLS.WHLEAS 05:00
PROVIDERS: PCP Nurse Practitioner Family; Visit Provider Family Medicine
DX: J44.1 Chronic obstructive pulmonary disease with (acute) exacerbation (principal); M16.11 Unilateral primary osteoarthritis, right hip; I50.32 Chronic diastolic (congestive) heart failure; R06.2 Wheezing; M25.551 Pain in right hip
CPT/HCPCS: 36415; 80048; 85027

== ENCOUNTER → 2020-10-04 05:00 | Outpatient (REF) | payer MEDICARE, OTHER, MEDICAID, SELFPAY ==
[2020-06-23 14:18] VITALS: BMI 52.4
[2020-10-04 07:48] LABS: Hematocrit 38.8 % (37-47); Hemoglobin 12.1 g/dL (12.0-15.0); Mean Corp Hgb Conc 31.2 g/dL (32-36); Mean Corpuscular Hgb 28.5 pg (27.0-32.0); Mean Corpuscular Volume 91.5 fL (81-99); Mean Platelet Vol. 10.5 fl (6.2-12.0); Platelet Count 269 K/mm3 (150-450); RBC Distribution Width CV 15.5 % (11.6-14.6); RBC Distribution Width SD 51.8 fl (35.1-43.9); Red Blood Count 4.24 M/mm3 (4.2-5.4); White Blood Count 8.5 K/mm3 (4.4-11.0)
[2020-10-04 08:01] LABS: Anion Gap 8 (5-15); BUN 17 mg/dL (7-18); BUN/Creat Ratio 18.6 RATIO (10-20); Calcium,Total 8.7 mg/dL (8.5-10.1); Chloride 102 mmol/L (98-107); Cholesterol 97 mg/dL (200); Creatinine, Serum 0.92 mg/dL (0.55-1.02); EST Glomerular Filtration Rate 63 mL/min (>60); Est Glom Filt Rate - Afr Amer 76 mL/min (>60); Glucose 99 mg/dL (74-106); High Density Lipoprotein 49 mg/dL; Potassium 3.4 mmol/L (3.5-5.1); Sodium Level 140 mmol/L (136-145); Triglycerides 112 mg/dL; Very Low Density Lipoprotein 22 mg/dL (5-40)
== END ==
LOC: OLS.WHLEAS 05:00
PROVIDERS: PCP Nurse Practitioner Family; Visit Provider Family Medicine
DX: B15.9 Hepatitis A without hepatic coma (principal); M16.11 Unilateral primary osteoarthritis, right hip; I50.32 Chronic diastolic (congestive) heart failure; J44.1 Chronic obstructive pulmonary disease with (acute) exacerbation; J45.909 Unspecified asthma, uncomplicated
CPT/HCPCS: 36415; 80048; 80061; 85027

== ENCOUNTER → 2020-11-01 05:00 | Outpatient (REF) | payer MEDICARE, OTHER, MEDICAID, SELFPAY ==
[2020-11-01 06:42] LABS: Hematocrit 35.1 % (37-47); Mean Corp Hgb Conc 31.3 g/dL (32-36); Mean Corpuscular Hgb 28.8 pg (27.0-32.0); Mean Corpuscular Volume 91.9 fL (81-99); Platelet Count 248 K/mm3 (150-450); RBC Distribution Width CV 16.3 % (11.6-14.6); RBC Distribution Width SD 54.9 fl (35.1-43.9); Red Blood Count 3.82 M/mm3 (4.2-5.4); White Blood Count 8.7 K/mm3 (4.4-11.0)
[2020-11-01 07:00] LABS: Anion Gap 5 (5-15); BUN 32 mg/dL (7-18); BUN/Creat Ratio 28.8 RATIO (10-20); Calcium,Total 8.5 mg/dL (8.5-10.1); Chloride 106 mmol/L (98-107); Creatinine, Serum 1.11 mg/dL (0.55-1.02); EST Glomerular Filtration Rate 50 mL/min (>60); Est Glom Filt Rate - Afr Amer 61 mL/min (>60); Glucose 99 mg/dL (74-106); Potassium 3.6 mmol/L (3.5-5.1); Sodium Level 141 mmol/L (136-145)
== END ==
LOC: OLS.WHLEAS 05:00
PROVIDERS: PCP Nurse Practitioner Family; Visit Provider Family Medicine
DX: J44.1 Chronic obstructive pulmonary disease with (acute) exacerbation (principal); M16.11 Unilateral primary osteoarthritis, right hip; I50.32 Chronic diastolic (congestive) heart failure; R06.2 Wheezing; M25.551 Pain in right hip
CPT/HCPCS: 36415; 80048; 85027

== ENCOUNTER → 2020-11-15 05:00 | Outpatient (REF) | payer MEDICARE, OTHER, MEDICAID, SELFPAY ==
[2020-11-15 07:38] LABS: Anion Gap 9 (5-15); BUN 46 mg/dL (7-18); BUN/Creat Ratio 36.5 RATIO (10-20); Chloride 104 mmol/L (98-107); Creatinine, Serum 1.26 mg/dL (0.55-1.02); EST Glomerular Filtration Rate 44 mL/min (>60); Est Glom Filt Rate - Afr Amer 53 mL/min (>60); Glucose 106 mg/dL (74-106); Potassium 4.1 mmol/L (3.5-5.1); Sodium Level 141 mmol/L (136-145)
== END ==
LOC: OLS.WHLEAS 05:00
PROVIDERS: PCP Nurse Practitioner Family; Visit Provider Family Medicine
DX: I89.0 Lymphedema, not elsewhere classified (principal); M16.11 Unilateral primary osteoarthritis, right hip; I50.32 Chronic diastolic (congestive) heart failure; J44.1 Chronic obstructive pulmonary disease with (acute) exacerbation; J45.909 Unspecified asthma, uncomplicated; R06.02 Shortness of breath
CPT/HCPCS: 36415; 80048

== ENCOUNTER → 2020-11-23 05:00 | Outpatient (REF) | payer MEDICARE, OTHER, MEDICAID, SELFPAY ==
[2020-11-23 08:48] LABS: Hematocrit 32.8 % (37-47); Hemoglobin 9.9 g/dL (12.0-15.0); Mean Corp Hgb Conc 30.2 g/dL (32-36); Mean Corpuscular Hgb 27.4 pg (27.0-32.0); Mean Corpuscular Volume 90.9 fL (81-99); Mean Platelet Vol. 10.6 fl (6.2-12.0); Platelet Count 309 K/mm3 (150-450); RBC Distribution Width CV 15.9 % (11.6-14.6); RBC Distribution Width SD 52.9 fl (35.1-43.9); Red Blood Count 3.61 M/mm3 (4.2-5.4); White Blood Count 6.2 K/mm3 (4.4-11.0)
[2020-11-23 08:57] LABS: Anion Gap 8 (5-15); BUN 33 mg/dL (7-18); Calcium,Total 8.7 mg/dL (8.5-10.1); Chloride 103 mmol/L (98-107); Creatinine, Serum 1.27 mg/dL (0.55-1.02); EST Glomerular Filtration Rate 43 mL/min (>60); Est Glom Filt Rate - Afr Amer 52 mL/min (>60); Glucose 101 mg/dL (74-106); Potassium 3.9 mmol/L (3.5-5.1); Sodium Level 141 mmol/L (136-145)
[2020-11-23 09:19] LABS: BNP,B-Type NATRIURETIC PEPTIDE 607.6 pg/mL (0-100)
== END ==
LOC: OLS.WHLEAS 05:00
PROVIDERS: PCP Nurse Practitioner Family; Visit Provider Family Medicine
DX: J44.1 Chronic obstructive pulmonary disease with (acute) exacerbation (principal); M16.11 Unilateral primary osteoarthritis, right hip; I50.32 Chronic diastolic (congestive) heart failure
CPT/HCPCS: 36415; 80048; 83880; 85027

== ENCOUNTER → 2020-11-28 05:00 | Outpatient (REF) | payer MEDICARE, OTHER, MEDICAID, SELFPAY ==
[2020-11-28 08:21] LABS: Hematocrit 31.7 % (37-47); Hemoglobin 9.7 g/dL (12.0-15.0); Mean Corp Hgb Conc 30.6 g/dL (32-36); Mean Corpuscular Hgb 27.9 pg (27.0-32.0); Mean Corpuscular Volume 91.1 fL (81-99); Mean Platelet Vol. 10.8 fl (6.2-12.0); Platelet Count 260 K/mm3 (150-450); RBC Distribution Width CV 16.1 % (11.6-14.6); RBC Distribution Width SD 53.7 fl (35.1-43.9); Red Blood Count 3.48 M/mm3 (4.2-5.4); White Blood Count 6.9 K/mm3 (4.4-11.0)
[2020-11-28 08:31] LABS: Anion Gap 9 (5-15); BUN 53 mg/dL (7-18); BUN/Creat Ratio 26.6 RATIO (10-20); Calcium,Total 8.7 mg/dL (8.5-10.1); Chloride 101 mmol/L (98-107); Creatinine, Serum 1.99 mg/dL (0.55-1.02); EST Glomerular Filtration Rate 26 mL/min (>60); Est Glom Filt Rate - Afr Amer 31 mL/min (>60); Glucose 110 mg/dL (74-106); Potassium 5.8 mmol/L (3.5-5.1); Sodium Level 137 mmol/L (136-145)
[2020-11-28 08:51] LABS: BNP,B-Type NATRIURETIC PEPTIDE 470.7 pg/mL (0-100)
== END ==
LOC: OLS.WHLEAS 05:00
PROVIDERS: PCP Nurse Practitioner Family; Visit Provider Family Medicine
DX: I50.32 Chronic diastolic (congestive) heart failure (principal); M16.11 Unilateral primary osteoarthritis, right hip; J44.1 Chronic obstructive pulmonary disease with (acute) exacerbation; J45.909 Unspecified asthma, uncomplicated
CPT/HCPCS: 36415; 80048; 83880; 85027

== ENCOUNTER 2020-11-30 11:37 | Inpatient (IN) | payer MEDICARE, OTHER, MEDICAID, SELFPAY ==
[2020-11-30] VITALS (12 sets, daily range): BP systolic 86–122; BP diastolic 47–83; PULSE 56–78; RESP 16–19; TEMP 36.4–36.9; O2SAT 95–99; BMI 55.3
--- NOTE | 2020-11-30 12:09 | EKG12_ITS ---
Test Reason : PAIN OTHER Blood Pressure : / mmHG Vent. Rate : 075 BPM Atrial Rate : 069 BPM P-R Int : 000 ms QRS Dur : 070 ms QT Int : 402 ms P-R-T Axes : 000 032 085 degrees QTc Int : 448 ms Atrial fibrillation Low voltage QRS Septal infarct , age undetermined Abnormal ECG Confirmed by ALEX LANG, SANTY ([id number]), deputy editor in chief CIPRIANO BOURNE ([id number]) on 12/05/2020 6:46:03 AM Referred By: MIGUEL Confirmed By:SANTY JOHNSON MD
--- NOTE | 2020-11-30 12:11 | EDS_ITS ---
HPI History of Present Illness Chief Complaint: Other, Pain/Inj Detail of Chief Complaint: Swelling and left breast swelling and redness. Informant: patient Onset/Context/Timing Onset: Weeks Context: Gradual Onset Timing: Continuous Current Severity: Moderate Maximum Severity: Moderate Narrative Narrative: 80-year-old female from a local [facility] care facility. Has been on antibiotics for a week orally for left breast cellulitis. She also has a history of congestive heart failure and in spite of increasing oral diuretics she has increasing swelling and weight gain. She had a 30 pound weight gain over the last 2 to 3 weeks. She denies any fever or chills. She is on the anticoagulant Eliquis. Prior similar symptoms: Yes Recent Illness/Hospitalization: No [facility] Medical History Atrial fibrillation CKD (chronic kidney disease) Congestive heart failure (CHF) COPD with asthma CVA (cerebral vascular accident) CVA (cerebral vascular accident) DM2 (diabetes mellitus, type 2) Dyslipidemia Essential hypertension Heart failure with preserved ejection fraction Hepatitis A History of cardioversion History of DVT (deep vein thrombosis) Hypercholesteremia Hypokalemia Lymphedema Morbid obesity Nonrheumatic mitral valve stenosis with insufficiency Nonrheumatic tricuspid (valve) insufficiency Pure hypercholesterolemia Home Medications albuterol sulfate 1 - 2 puff INHALATION Q4H PRN PRN 06/04/13 [History Last Taken 05/22/20] multivitamin 1 tablet PO DAILY 06/04/13 [History Last Taken 05/22/20] valsartan-hydrochlorothiazide 1 tablet PO DAILY 06/04/13 [History Last Taken 05/22/20] diltiazem HCl 240 mg capsule,extended release 24 hr 240 mg PO DAILY 05/10/20 [History Last Taken 05/22/20] metoprolol tartrate 50 mg tablet 50 mg PO BID 05/10/20 [History Last Taken 05/22/20] potassium chloride 20 mEq tablet,extended release 20 meq PO DAILY 05/10/20 [Hist ory Last Taken 05/22/20] umeclidinium 62.5 mcg-vilanterol 25 mcg/actuation powdr for inhalation 1 inh INHALATION DAILY 05/10/20 [History Last Taken 05/21/20] sennosides-docusate sodium 2 tablet PO BID PRN PRN tablet 05/24/20 [Rx Last Taken Unknown] bisacodyl 10 mg rectal suppository 10 mg RC DAILY PRN 05/31/20 [History Last Taken Unknown] budesonide 180 mcg/actuation breath activated powder inhaler 2 inh INHALATION BID 05/31/20 [History Last Taken Unknown] diclofenac sodium 1 % topical gel 4 gm TOPICAL TID gm 05/31/20 [History Last Taken Unknown] lidocaine 4 % topical patch 1 patch TOPICAL DAILY PRN 05/31/20 [History Last Taken Unknown] magnesium hydroxide 400 mg/5 mL oral suspension 30 ml PO DAILY PRN ml 05/31/20 [History Last Taken Unknown] oxycodone 5 mg tablet 5 mg PO Q4H PRN 05/31/20 [History Last Taken Unknown] pantoprazole 40 mg tablet,delayed release 40 mg PO DAILY 05/31/20 [History Last Taken Unknown] acetaminophen 325 mg capsule 325 mg PO ONCE PRN 06/23/20 [History Last Taken Unknown] kktci-s-eqmvhoicthrdr 150 unit tablet 150 unit PO BID PRN 06/23/20 [History Last Taken Unknown] apixaban 5 mg tablet 5 mg PO BID 06/23/20 [History Last Taken Unknown] atorvastatin 40 mg tablet 40 mg PO DAILY 06/23/20 [History Last Taken Unknown] duloxetine 30 mg capsule,delayed release 30 mg PO DAILY 06/23/20 [History Last Taken Unknown] fexofenadine 60 mg tablet 60 mg PO BID PRN 06/23/20 [History Last Taken Unknown] fluticasone propionate 50 mcg/actuation nasal spray,suspension 1 spray INTRANASAL DAILY 06/23/20 [History Last Taken Unknown] furosemide 40 mg tablet 40 mg PO DAILY 10/25/20 [History Last Taken Unknown] gabapentin 300 mg capsule 300 mg PO QHS 10/25/20 [History Last Taken Unknown] mirtazapine 15 mg tablet 15 mg PO DAILY 10/25/20 [History Last Taken Unknown] Allergy/AdvReac Type Severity Reaction Status Date / Time acetaminophen Allergy Shortness Verified 11/30/20 11:42 [From DavinaErin] of breath carvedilol Allergy ?dizzy Verified 11/30/20 11:42 celecoxib Allergy Rash Verified 11/30/20 11:42 codeine Allergy Shortness Verified 11/30/20 11:42 of breath etodolac Allergy Rash Verified 11/30/20 11:42 irbesartan Allergy hypertensiv Verified 11/30/20 11:42 e latex Allergy skin peels Verified 11/30/20 11:42 lisinopril Allergy unknown Verified 11/30/20 11:42 losartan Allergy unknown Verified 11/30/20 11:42 morphine Allergy Shortness Verified 11/30/20 11:42 of breath Opioids - Morphine Analogues Allergy Shortness Verified 11/30/20 11:42 of breath propoxyphene [From Darvon] Allergy Shortness Verified 11/30/20 11:42 of breath propoxyphene napsylate Allergy Shortness Verified 11/30/20 11:42 [From Darvocet-N] of breath sotalol Allergy unknown Verified 11/30/20 11:42 Family History Mother Asthma Cancer CHF (congestive heart failure) Hypertension Heart disease Hyperchloremia FH: mental illness Father Cancer Son Asthma Daughter Cancer Surgical History History of arthroplasty of knee History of carpal tunnel release History of total hip replacement Hx of abdominal hysterectomy Social History Smoking Status: Never smoker alcohol intake: never substance use type: does not use caffeine: Yes Type: coffee Number of servings: 1 ROS ROS ED ROS Narrative Swelling. Left breast redness. Denies any fever. Review of Systems ROS Unobtainable: Denies due to encephalopathy Constitutional Constitutional ED: Denies chills or fever(s) Eyes Eyes: Denies change in vision ENT ENT ED: Denies ear pain Cardiovascular Cardiovascular: Denies chest pain Respiratory/Chest Respiratory/Chest: Reports dyspnea; Denies cough Gastrointestinal Gastrointestinal: Denies abdominal pain, diarrhea, nausea or vomiting Genitourinary Genitourinary ED: Denies dysuria Musculoskeletal Musculoskeletal: Denies myalgias Integumentary Denies rash Neurologic Neurologic: Denies headache(s) Psychiatric Psychiatric: Denies depression Endocrine Endocrinology: Denies polyuria Allergic/Immunologic Allergic/Immunologic ED: Denies urticaria EXAM Physical Exam Narrative Exam Narrative: 80-year-old female that for both had lift off the wheelchair into bed. Vital signs are stable. Her pulse ox is 97% on 2 L which I believe is her baseline. HEENT exam unremarkable. Neck nontender no JVD. Lungs clear to auscultation bilaterally. Distant. Heart rate about 80. No murmur apprec iated. Her left breast is enlarged, swollen and red consistent with cellulitis. I do not feel any obvious abscess. I do not feel any obvious left axillary lymphadenopathy. Abdomen soft nontender normal bowel sounds. Obese. Moving all 4 extremities. Both lower extremities have 2+ pitting edema. Are nontender. She has Shashi wrap on both. Neurologically she is awake and alert. She is moving all 4 extremities. She is generally weak. He is answering questions and following commands. Const Vital Signs: 11/30/20 11:38 11/30/20 12:36 11/30/20 14:20 Temperature 97.7 F L 97.8 F Temperature Source Temporal Temporal Pulse Rate 78 70 Respiratory Rate 16 19 H Respiratory Effort Normal Non-Labored Respiratory Pattern Normal Blood Pressure 122/64 H 113/62 Blood Pressure Mean 83 79 Pulse Ox 97 99 Oxygen Delivery Method Nasal Cannula Room Air Oxygen Flow Rate (L/min) 2 Positive well nourished, well developed and obese; Negative for cachectic, contractures or unkempt General Appearance ED: well developed and NAD; Negative for unkempt, cachectic, contractures, cyanotic or diaphoretic Nutritional Appearance: obese; Negative for cachectic HEENT Reports moist mucous membranes Negative for trauma or tenderness Eyes PERRL and EOMs intact bilaterally Neck no lymphadenopathy, supple and no JVD General: Negative for tenderness Chest Wall palpation of chest normal; Negative for inspection of chest normal Chest Narrative: Left breast cellulitis. Resp normal respiratory effort and clear to auscultation bilaterally Auscultation: Negative for rales, rhonchi or wheezes Cardio regular rate, regular rhythm, S1 normal heart sound, S2 normal heart sound and no murmurs GI normal to inspection, nondistended, normoactive bowel sounds, non-tender, non- distended and no masses Inspection: Negative for abdominal distention Auscultation: normoactive bowel sounds Palpation: soft; Negative for tender, guarding or rebound tenderness present Back/Spine no CVA tenderness Extremity Extremity Narrative: Bilateral lower extremity 2+ pitting edema. General Extremety ED: Yes edema General Extremity: edema Neuro oriented x3 Sensorium / Orientation: alert; Negative for orientation impaired, lethargic or stuporous Motor Exam: general weakness Psych mental status grossly normal Appearance: Negative for unkempt Skin no wounds Skin Narrative: Cellulitis left breast. MDM MDM MDM Narrative Medical decision making narrative: 80-year-old female history of CHF with significant weight gain in spite of increasing diuretics. Also worsening left breast cellulitis in spite of oral antibiotics. She will be started on IV Unasyn. Labs are being obtained she will be admitted to the hospital. Repeat exam at 230 patient is doing well. She is also received OxyIR x2. She is awaiting admission. Lab Data Attestation: I reviewed the patient's lab results. Lab results narrative: CBC shows white count 8.8. Hemoglobin 10.7. Electrolytes unremarkable gap of 9 BUN of 54 creatinine 1.99 she has a history of some renal insufficiency. Her BNP is elevated 865. Her potassium level is normal. Labs: Laboratory Results - last 24 hr 11/30/20 11/30/20 11/30/20 12:30 12:30 12:30 WBC 8.8 RBC 3.87 L Hgb 10.7 L Hct 34.1 L MCV 88.1 MCH 27.6 MCHC 31.4 L RDW Std Deviation 51.4 H RDW Coeff of Rasta 16.0 H Plt Count 269 MPV 10.6 Immature Gran % (Auto) 0.500 Neut % (Auto) 73.1 H Lymph % (Auto) 12.4 L [place] % (Auto) 9.7 Eos % (Auto) 4.1 Baso % (Auto) 0.2 Absolute Neuts (auto) 6.5 Absolute Lymphs (auto) 1.10 Nucleated RBC % 0 Sodium 137 Potassium 4.9 Chloride 101 Carbon Dioxide 27.0 Anion Gap 9 BUN 54 H Creatinine 1.99 H Estim Creat Clear Calc 0.00 Est GFR (MDRD) Af Amer 31 L Est GFR (MDRD) Non-Af 26 L BUN/Creatinine Ratio 27.1 H Glucose 145 H Calcium 8.9 B-Natriuretic Peptide 865.1 H Radiography Chest X-Ray - ED: 1 View and Read by ED Physician Rhythm Strip Rhythm Strip: A-fib Rate: 75 Ectopy: None EKG Initial EKG: Attestation: I personally reviewed and interpreted this EKG as follows: Interpretation: No Acute Injury Pattern and Atrial Fibrillation Comments: Atrial fibrillation rate is 75 no acute signs of SC or acute ischemia. Low voltage. Prior EKG tracings: not available for review Discharge Plan Dx/Rx/DC Orders Clinical Impression: Cellulitis of left breast, CHF (congestive heart failure), Acute on chronic renal insufficiency, History of atrial fibrillation Disposition Disposition: Acute Care Hospital [facility]
[2020-11-30 12:40] LABS: Absolute Neutrophil Count 6.5 X10^3/uL (2.0-7.7); Basophil# 0.02 X10^3/uL; Basophil% 0.2 % (0-1); Eosinophil# 0.36 X10^3/uL; Eosinophils% 4.1 % (0-5); Hematocrit 34.1 % (37-47); Hemoglobin 10.7 g/dL (12.0-15.0); Lymphocyte % 12.4 % (19-41); Mean Corp Hgb Conc 31.4 g/dL (32-36); Mean Corpuscular Hgb 27.6 pg (27.0-32.0); Mean Corpuscular Volume 88.1 fL (81-99); Mean Platelet Vol. 10.6 fl (6.2-12.0); Monocyte# 0.86 X10^3/uL; Monocyte% 9.7 % (0-10); NRBC Flagged by Analyzer 0 % (0-5); Neutrophil # 6.46 X10^3/uL (2.7-7.7); Neutrophil % 73.1 % (47-70); Platelet Count 269 K/mm3 (150-450); RBC Distribution Width SD 51.4 fl (35.1-43.9); Red Blood Count 3.87 M/mm3 (4.2-5.4); White Blood Count 8.8 K/mm3 (4.4-11.0)
[2020-11-30] MEDS: oxyCODONE 5 MG Tablet PO ×2 (12:50→14:18)
[2020-11-30 12:53] LABS: Anion Gap 9 (5-15); BUN 54 mg/dL (7-18); BUN/Creat Ratio 27.1 RATIO (10-20); Calcium,Total 8.9 mg/dL (8.5-10.1); Chloride 101 mmol/L (98-107); Creatinine, Serum 1.99 mg/dL (0.55-1.02); EST Glomerular Filtration Rate 26 mL/min (>60); Est Glom Filt Rate - Afr Amer 31 mL/min (>60); Glucose 145 mg/dL (74-106); Potassium 4.9 mmol/L (3.5-5.1); Sodium Level 137 mmol/L (136-145)
[2020-11-30 12:55] LABS: BNP,B-Type NATRIURETIC PEPTIDE 865.1 pg/mL (0-100)
--- NOTE | 2020-11-30 13:13 | ED.RN ---
called pharmacy regarding unysn.
--- NOTE | 2020-11-30 14:38 | NURSING ---
MED SURG JOPPERI BREAST CELLULITIS, CHF, FAILED OUTPATIENT THERAPY
--- NOTE | 2020-11-30 14:55 | RAD_ITS ---
STUDY: X-RAY CHEST REASON FOR EXAM: Female, 80 years old. chf TECHNIQUE: Single AP portable view of the chest. COMPARISON: Comparison is made with prior examination dated 05/22/2020. FINDINGS: EKG electrodes are seen. The lungs are clear and expanded. There is no demonstrated pleural abnormality. There is mild cardiac enlargement. There is evidence of overt calcification of the mitral valve annulus. Normal mediastinum and teresa. Normal visualized pulmonary arteries. There is atherosclerotic calcification of the aortic arch with tortuosity. There are diffuse degenerative changes of the visualized thoracic spine. Mild degree of dextroscoliosis. Normal visualized ribs, clavicles, and shoulders. There is no demonstrated abnormality of the visualized soft tissue structures of the upper abdomen. RAD/Chest 1 View (Portable) IMPRESSION: Mild cardiomegaly. The lungs are clear. Electronically Signed: Aristeo Spring MD at 15:17 EDT , Service support ,
--- NOTE | 2020-11-30 14:59 | US_ITS ---
STUDY: RENAL ULTRASOUND - COMPLETE REASON FOR EXAM: Female, 80 years old. Acute kidney injury. TECHNIQUE: Ultrasound evaluation of the kidneys was performed with real-time and static sales-scale imaging. COMPARISON: None. FINDINGS: Study is limited and due to patient obesity and inability to assist with positioning. RIGHT KIDNEY: Normal location of the right kidney, which is normal in size. The right kidney measures 11.7 cm. There is a normal cortex of the right kidney. The renal cortex measures 1.0 cm. There is no right renal mass or cyst. There are no right renal calculi. There is an extra-renal pelvis of the right kidney. There is no distention of the renal calyces. DISTAL RIGHT URETER: There is non-visualization of the distal right ureter. There is no demonstrated right ureterovesical junction calculus. There is no demonstrated right ureteral jet. LEFT KIDNEY: Normal location of the left kidney, which is small in size. The left kidney measures 6.9 cm. There is renal cortical thinning. The renal cortex measures 0.6 cm. There is no left renal mass or cyst. There are no left renal calculi. There is no left hydronephrosis. DISTAL LEFT URETER: There is non-visualization of the distal left ureter. There is no demonstrated left ureterovesical junction calculus. There is no demonstrated left ureteral jet. BLADDER: The distended urinary bladder has a volume of 150 ml. Diffuse wall thickening with bladder wall measuring 6 mm. There is no demonstrated mass within the urinary bladder. There are no demonstrated bladder calculi. Incidental finding is presence of gallbladder wall thickening and gallstones. US/Kidney and Bladder IMPRESSION: 1. Atrophic left kidney without mass. 2. Normal right kidney. 3. Bladder wall thickening. 4. Gallstones with gallbladder wall thickening. Electronically Signed: Jas Crooks DO at 18:57 EDT Tel [phone], Service support ,
--- NOTE | 2020-11-30 15:01 | PCM.HP.STD ---
Documented by User: BALTA Burgos 11/30/20 15:24 HPI - General General Date of Admission: 11/30/20 Date of Service: 11/30/20 Chief Complaint: Left breast pain and swelling, shortness of breath HPI Narrative EMANI GRACE, is a 80 F who presents with complaints of increased shortness of breath as well as increased peripheral edema. Patient also states that over the past week her left breast has become swollen and painful and is now warm to the touch. Patient reports chills however patient states that this is not anything abnormal. Patient denies fever, cough, chest pain, nausea, vomiting, constipation, diarrhea. Per penitentiary report patient has been on antibiotics for approximately 1 week for cellulitis. Patient states that she has also had a 30 lb weight gain over the past 2 to 3 weeks despite increase in her diuretics. FORMERLY [facility] Medical History Atrial fibrillation CKD (chronic kidney disease) Congestive heart failure (CHF) COPD with asthma CVA (cerebral vascular accident) CVA (cerebral vascular accident) DM2 (diabetes mellitus, type 2) Dyslipidemia Essential hypertension Heart failure with preserved ejection fraction Hepatitis A History of cardioversion History of DVT (deep vein thrombosis) Hypercholesteremia Hypokalemia Lymphedema Morbid obesity Nonrheumatic mitral valve stenosis with insufficiency Nonrheumatic tricuspid (valve) insufficiency Pure hypercholesterolemia Home Medications albuterol sulfate 1 - 2 puff INHALATION Q4H PRN PRN 06/04/13 [History Last Taken 05/22/20] multivitamin 1 tablet PO DAILY 06/04/13 [History Last Taken 05/22/20] valsartan-hydrochlorothiazide 1 tablet PO DAILY 06/04/13 [History Last Taken 05/22/20] diltiazem HCl 240 mg capsule,extended release 24 hr 240 mg PO DAILY 05/10/20 [History Last Taken 05/22/20] metoprolol tartrate 50 mg tablet 50 mg PO BID 05/10/20 [History Last Taken 05/22/20] potassium chloride 20 mEq tablet,extended release 20 meq PO DAILY 05/10/20 [History Last Taken 05/22/20] umeclidinium 62.5 mcg-vilanterol 25 mcg/actuation powdr for inhalation 1 inh INHALATION DAILY 05/10/20 [History Last Taken 05/21/20] sennosides-docusate sodium 2 tablet PO BID PRN PRN tablet 05/24/20 [Rx Last Taken Unknown] bisacodyl 10 mg rectal suppository 10 mg RC DAILY PRN 05/31/20 [History Last Taken Unknown] budesonide 180 mcg/actuation breath activated powder inhaler 2 inh INHALATION BID 05/31/20 [History Last Taken Unknown] diclofenac sodium 1 % topical gel 4 gm TOPICAL TID gm 05/31/20 [History Last Taken Unknown] lidocaine 4 % topical patch 1 patch TOPICAL DAILY PRN 05/31/20 [History Last Taken Unknown] magnesium hydroxide 400 mg/5 mL oral suspension 30 ml PO DAILY PRN ml 05/31/20 [History Last Taken Unknown] oxycodone 5 mg tablet 5 mg PO Q4H PRN 05/31/20 [History Last Taken Unknown] pantoprazole 40 mg tablet,delayed release 40 mg PO DAILY 05/31/20 [History Last Taken Unknown] acetaminophen 325 mg capsule 325 mg PO ONCE PRN 06/23/20 [History Last Taken Unknown] gsxpg-s-ruhokmgkssqaq 150 unit tablet 150 unit PO BID PRN 06/23/20 [History Last Taken Unknown] apixaban 5 mg tablet 5 mg PO BID 06/23/20 [History Last Taken Unknown] atorvastatin 40 mg tablet 40 mg PO DAILY 06/23/20 [History Last Taken Unknown] duloxetine 30 mg capsule,delayed release 30 mg PO DAILY 06/23/20 [History Last Taken Unknown] fexofenadine 60 mg tablet 60 mg PO BID PRN 06/23/20 [History Last Taken Unknown] fluticasone propionate 50 mcg/actuation nasal spray,suspension 1 spray INTRANASAL DAILY 06/23/20 [History Last Taken Unknown] furosemide 40 mg tablet 40 mg PO DAILY 10/25/20 [History Last Taken Unknown] gabapentin 300 mg capsule 300 mg PO QHS 10/25/20 [History Last Taken Unknown] mirtazapine 15 mg tablet 15 mg PO DAILY 10/25/20 [History Last Taken Unknown] Allergy/AdvReac Type Severity Reaction Status Date / Time acetaminophen Allergy Shortness Verified 11/30/20 11:42 [From Melvin] of breath carvedilol Allergy ?dizzy Verified 11/30/20 11:42 celecoxib Allergy Rash Verified 11/30/20 11:42 codeine Allergy Shortness Verified 11/30/20 11:42 of breath etodolac Allergy Rash Verified 11/30/20 11:42 irbesartan Allergy hypertensiv Verified 11/30/20 11:42 e latex Allergy skin peels Verified 11/30/20 11:42 lisinopril Allergy unknown Verified 11/30/20 11:42 losartan Allergy unknown Verified 11/30/20 11:42 morphine Allergy Shortness Verified 11/30/20 11:42 of breath Opioids - Morphine Analogues Allergy Shortness Verified 11/30/20 11:42 of breath propoxyphene [From Darvon] Allergy Shortness Verified 11/30/20 11:42 of breath propoxyphene napsylate Allergy Shortness Verified 11/30/20 11:42 [From Darvocet-N] of breath sotalol Allergy unknown Verified 11/30/20 11:42 Family History Mother Asthma Cancer CHF (congestive heart failure) Hypertension Heart disease Hyperchloremia FH: mental illness Father Cancer Son Asthma Daughter Cancer Surgical History History of arthroplasty of knee History of carpal tunnel release History of total hip replacement Hx of abdominal hysterectomy Social History Smoking Status: Never smoker alcohol intake: never substance use type: does not use caffeine: Yes Type: coffee Number of servings: 1 ROS Constitutional Constitutional: Reports chills and malaise; Denies anorexia, fatigue, fever(s) or weakness Cardiovascular Cardiovascular: Reports edema and palpitations; Denies chest pain or syncope Respiratory/Chest Respiratory/Chest: Reports shortness of breath at rest and shortness of breath with exertion; Denies cough Gastrointestinal Gastrointestinal: Denies abdominal pain, constipation, diarrhea, nausea or vomiting Genitourinary Genitourinary: Denies dysuria Musculoskeletal Musculoskeletal: Reports joint pain; Denies back pain, extremity pain or joint stiffness Integumentary Integumentary: Denies dry skin Neurologic Neurologic: Denies abnormal gait, abnormal speech, confusion or dizziness Psychiatric Psychiatric: Denies anxiety or depression Endocrine Endocrinology: Denies change in body appearance Hematologic/Lymphatic Hematologic/Lymphatic: Denies anemia Vital Signs Vital Signs Vital Signs: 11/30/20 11:38 11/30/20 12:36 11/30/20 14:20 Temperature 97.7 F L 97.8 F Temperature Source Temporal Temporal Pulse Rate 78 70 Respiratory Rate 16 19 H Respiratory Effort Normal Non-Labored Respiratory Pattern Normal Blood Pressure 122/64 H 113/62 Blood Pressure Mean 83 79 Pulse Ox 97 99 Oxygen Delivery Method Nasal Cannula Room Air Oxygen Flow Rate (L/min) 2 Weight Weight: 0 oz Body Mass Index (BMI) 0.0 Physical Exam Const alert, oriented x3 and no apparent distress General Appearance: cooperative HEENT normocephalic and head/scalp atraumatic Eyes conjunctivae normal and no scleral icterus Neck supple General: trachea midline Resp normal respiratory effort and normal air movement Auscultation: diminished lung sounds Cardio regular rate, regular rhythm, S1 normal heart sound, S2 normal heart sound and peripheral pulses 2+ throughout GI normal to inspection, nondistended, normoactive bowel sounds, soft to palpation and non-tender Extremity normal capillary refill and no clubbing, cyanosis or edema General Extremity: no tenderness to palpation of joints or extremities Skin General Skin Exam: no breakdown and turgor normal Lesions: no lesions Rashes: rashes noted Erythematous warm rash noted to left breast patch symmetrical red No fluctuent and Yes indurated dry and warm moderate cellulitis Neuro no focal motor deficits and no sensory deficits noted Speech: speech normal Motor Exam: Negative for general weakness Psych thought process normal, cooperative and affect normal Appearance: appropriate Results Lab / Micro Data Result Diagrams: 11/30/20 12:30 11/30/20 12:30 Labs: Laboratory Results - last 24 hr 11/30/20 12:30: WBC 8.8, RBC 3.87 L, Hgb 10.7 L, Hct 34.1 L, MCV 88.1, MCH 27.6, MCHC 31.4 L, RDW Std Deviation 51.4 H, RDW Coeff of Rasta 16.0 H, Plt Count 269, MPV 10.6, Immature Gran % (Auto) 0.500, Neut % (Auto) 73.1 H, Lymph % (Auto) 12.4 L, Haywood % (Auto) 9.7, Eos % (Auto) 4.1, Baso % (Auto) 0.2, Absolute Neuts (auto) 6.5, Absolute Lymphs (auto) 1.10, Nucleated RBC % 0 11/30/20 12:30: Sodium 137, Potassium 4.9, Chloride 101, Carbon Dioxide 27.0, Anion Gap 9, BUN 54 H, Creatinine 1.99 H, Estim Creat Clear Calc 0.00, Est GFR (MDRD) Af Amer 31 L, Est GFR (MDRD) Non-Af 26 L, BUN/Creatinine Ratio 27.1 H, Glucose 145 H, Calcium 8.9 11/30/20 12:30: B-Natriuretic Peptide 865.1 H Rhythm Strip Rhythm Strip: A-fib Rate: 75 Ectopy: None Assessment & Plan Assessment/Plan (1) CHF (congestive heart failure): QUALIFIERS: Heart failure chronicity: acute on chronic (2) Cellulitis of left breast: (3) Acute on chronic renal insufficiency: PLAN: 1. Cellulitis of the left breast -Admit to [facility] -As patient is failing outpatient antibiotic treatment will initiate patient on IV vancomycin -Outline reddened area with skin marker to track growth and recession of red area -Case management consulted for discharge planning back to [facility] 2. Acute on chronic congestive heart failure -Echocardiogram ordered for a.m., last echo completed in 2019 demonstrates EF 60 to 65% -IV Lasix twice daily -Strict intake and output along with daily weights -CBC and BMP ordered -Twelve-lead EKG every a.m. -PT and OT to eval and treat -Elevate bilateral lower extremities -Shashi wraps to bilateral lower extremities- -chest x-ray for a.m. 3. Acute on chronic renal insufficiency -Daily BMP -Intake and output -Kidney and bladder ultrasound ordered 4. Hypertension -Continue valsartan. -Hold lisinopril due to acute on chronic renal insufficiency 5. COPD -Stable -Continue budesonide, fluticasone. -Albuterol nebulizer treatments as needed 6. A. fib -Continue Eliquis, metoprolol -EKG demonstrates atrial fibrillation, rate controlled heart rate 67-72 DVT prophylaxis-not indicated patient chronically anticoagulated with Eliquis This patient was seen by MATTIE BurgosC under the supervision of Dr. Wood. Documented by User: Dr. Vipul Wood DO 11/30/20 15:38 HPI - General General Date of Admission: 11/30/20 Date of Service: 11/30/20 Chief Complaint: Increased breast pain. HPI Narrative 80-year-old female presents with increased shortness of breath, lower extremity edema and 30 pound weight gain over the past few weeks. Patient also has increased pain over her left breast. Patient had been treated for cellulitis of her breast with antibiotics but continued to get worse. Seen in the emergency room here and received a dose of ampicillin/sulbactam as well as oxycodone. [facility] Medical History Atrial fibrillation CKD (chronic kidney disease) Congestive heart failure (CHF) COPD with asthma CVA (cerebral vascular accident) CVA (cerebral vascular accident) DM2 (diabetes mellitus, type 2) Dyslipidemia Essential hypertension Heart failure with preserved ejection fraction Hepatitis A History of cardioversion History of DVT (deep vein thrombosis) Hypercholesteremia Hypokalemia Lymphedema Morbid obesity Nonrheumatic mitral valve stenosis with insufficiency Nonrheumatic tricuspid (valve) insufficiency Pure hypercholesterolemia Home Medications albuterol sulfate 1 - 2 puff INHALATION Q4H PRN PRN 06/04/13 [History Last Taken 05/22/20] multivitamin 1 tablet PO DAILY 06/04/13 [History Last Taken 05/22/20] valsartan-hydrochlorothiazide 1 tablet PO DAILY 06/04/13 [History Last Taken 05/22/20] diltiazem HCl 240 mg capsule,extended release 24 hr 240 mg PO DAILY 05/10/20 [History Last Taken 05/22/20] metoprolol tartrate 50 mg tablet 50 mg PO BID 05/10/20 [History Last Taken 05/22/20] potassium chloride 20 mEq tablet,extended release 20 meq PO DAILY 05/10/20 [History Last Taken 05/22/20] umeclidinium 62.5 mcg-vilanterol 25 mcg/actuation powdr for inhalation 1 inh INHALATION DAILY 05/10/20 [History Last Taken 05/21/20] sennosides-docusate sodium 2 tablet PO BID PRN PRN tablet 05/24/20 [Rx Last Taken Unknown] bisacodyl 10 mg rectal suppository 10 mg RC DAILY PRN 05/31/20 [History Last Taken Unknown] budesonide 180 mcg/actuation breath activated powder inhaler 2 inh INHALATION BID 05/31/20 [History Last Taken Unknown] diclofenac sodium 1 % topical gel 4 gm TOPICAL TID gm 05/31/20 [History Last Taken Unknown] lidocaine 4 % topical patch 1 patch TOPICAL DAILY PRN 05/31/20 [History Last Taken Unknown] magnesium hydroxide 400 mg/5 mL oral suspension 30 ml PO DAILY PRN ml 05/31/20 [History Last Taken Unknown] oxycodone 5 mg tablet 5 mg PO Q4H PRN 05/31/20 [History Last Taken Unknown] pantoprazole 40 mg tablet,delayed release 40 mg PO DAILY 05/31/20 [History Last Taken Unknown] acetaminophen 325 mg capsule 325 mg PO ONCE PRN 06/23/20 [History Last Taken Unknown] nfpel-k-vmvdntgbzhozm 150 unit tablet 150 unit PO BID PRN 06/23/20 [History Last Taken Unknown] apixaban 5 mg tablet 5 mg PO BID 06/23/20 [History Last Taken Unknown] atorvastatin 40 mg tablet 40 mg PO DAILY 06/23/20 [History Last Taken Unknown] duloxetine 30 mg capsule,delayed release 30 mg PO DAILY 06/23/20 [History Last Taken Unknown] fexofenadine 60 mg tablet 60 mg PO BID PRN 06/23/20 [History Last Taken Unknown] fluticasone propionate 50 mcg/actuation nasal spray,suspension 1 spray INTRANASAL DAILY 06/23/20 [History Last Taken Unknown] furosemide 40 mg tablet 40 mg PO DAILY 10/25/20 [History Last Taken Unknown] gabapentin 300 mg capsule 300 mg PO QHS 10/25/20 [History Last Taken Unknown] mirtazapine 15 mg tablet 15 mg PO DAILY 10/25/20 [History Last Taken Unknown] Allergy/AdvReac Type Severity Reaction Status Date / Time acetaminophen Allergy Shortness Verified 11/30/20 11:42 [From Melvin] of breath carvedilol Allergy ?dizzy Verified 11/30/20 11:42 celecoxib Allergy Rash Verified 11/30/20 11:42 codeine Allergy Shortness Verified 11/30/20 11:42 of breath etodolac Allergy Rash Verified 11/30/20 11:42 irbesartan Allergy hypertensiv Verified 11/30/20 11:42 e latex Allergy skin peels Verified 11/30/20 11:42 lisinopril Allergy unknown Verified 11/30/20 11:42 losartan Allergy unknown Verified 11/30/20 11:42 morphine Allergy Shortness Verified 11/30/20 11:42 of breath Opioids - Morphine Analogues Allergy Shortness Verified 11/30/20 11:42 of breath propoxyphene [From Darvon] Allergy Shortness Verified 11/30/20 11:42 of breath propoxyphene napsylate Allergy Shortness Verified 11/30/20 11:42 [From Darvocet-N] of breath sotalol Allergy unknown Verified 11/30/20 11:42 Family History Mother Asthma Cancer CHF (congestive heart failure) Hypertension Heart disease Hyperchloremia FH: mental illness Father Cancer Son Asthma Daughter Cancer Surgical History History of arthroplasty of knee History of carpal tunnel release History of total hip replacement Hx of abdominal hysterectomy Social History Smoking Status: Never smoker alcohol intake: never substance use type: does not use caffeine: Yes Type: coffee Number of servings: 1 ROS ROS Narrative Subjective chills. All review of systems were negative except as mentioned above in the history of present illness and the other review of systems. Physical Exam Const alert General Appearance: cooperative HEENT head/scalp atraumatic Neck supple Lymph Lymphatic Narrative: Bilateral lower extremity edema. Resp normal respiratory effort, normal air movement and clear to auscultation bilaterally Cardio regular rate and regular rhythm GI normal to inspection, nondistended, normoactive bowel sounds, soft to palpation and non-tender Extremity General Extremity: edema Skin Skin Narrative: Marked erythema and induration over the left breast. No fluctuance noted. No lesions noted. Underneath her pannus she had some mild erythema but no definitive candidiasis. Psych affect normal Results Lab / Micro Data Attestation: I reviewed the patient's lab results. Result Diagrams: 11/30/20 12:30 11/30/20 12:30 Assessment & Plan Assessment/Plan (1) Cellulitis of left breast: (2) (HFpEF) heart failure with preserved ejection fraction: PLAN: Patient seen and examined independently. Data and vitals reviewed. I agree with the above note by the nurse practitioner. 1. Acute left breast cellulitis Failed outpatient antibiotics Will add vancomycin and observe. If fails to improve with the vancomycin consider imaging with an ultrasound or CT to evaluate for any underlying abscess. I do not feel that this is mastitis 2. Acute heart failure preserved ejection fraction EF of 60 to 65% from 2D echocardiogram performed on 11/23/2019. Complicated by group 2 pulmonary pretension where patient had a right ventricular systolic pressure of 48 mmHg. We will add IV furosemide Fluid restrict 3. CATALINA v CKD 4 monitor closely while on furosemide Charges/Coding Visit Charges Inpatient E&M: 72253 Init Hosp L3
[2020-11-30] MEDS: morphine 8 MG/ML Syringe 6 MG IV (16:00)
[2020-11-30] MEDS: Ondansetron 4 MG/2 ML Vial IV (16:00)
--- NOTE | 2020-11-30 16:43 | ECHOCS_ITS ---
Reason For Study: CHF Procedure This was a 2D Doppler, Color Flow transthoracic echocardiogram. The study was technically difficult. Contrast injection was performed. Exam performed portable in patient room. Left Ventricle Mild concentric left ventricular hypertrophy. The estimated ejection fraction is EF 55-60 %. Right Ventricle Normal right ventricle. Normal systolic function. Atria The left atrium is severely enlarged. The right atrium is moderately enlarged. Mitral Valve There is moderate to severe mitral annular calcification. Mild (1+) mitral valve insufficiency. Tricuspid Valve Normal tricuspid valve. Mild tricuspid valve insufficiency. Aortic Valve Moderate diffuse aortic valve calcification. Aortic valve area 1.2 cm2 . Mild to moderate aortic stenosis. Mild (1+) aortic valve insufficiency. Pulmonic Valve The pulmonic valve is not well visualized. Great Vessels Normal aortic root. Pericardium/Pleural No pericardial effusion. Medication Diluted definity 2ml given slow IV push to enhance endocardial definition. MMode/2D Measurements & Calculations LVIDd: 5.1 cm IVSd: 1.1 cm LVOT diam: 1.9 cm LVIDs: 2.4 cm LVPWd: 1.2 cm FS: 53.0 % LVOT area: 2.7 cm2 Ao root diam: 3.2 cm LAV(MOD-bp): 70.4 ml LA A4 area: 24.3 cm2 LAV(MOD-bp) Indexed: 32.5 ml/m2 LAV(MOD-sp2): 50.8 ml LAV(MOD-sp4): 78.7 ml LA dimension(2D): 5.0 cm RA A4 area: 17.9 cm2 Time Measurements MV dec time: 0.26 sec Doppler Measurements & Calculations MV E max alec: 108.4 cm/sec MV V2 max: 209.9 cm/sec MV P1/2t max alec: 209.0 cm/sec MV max P.6 mmHg MV P1/2t: 76.3 msec MV V2 mean: 85.8 cm/sec MV mean P.3 mmHg MV dec slope: 802.1 cm/sec2 MV V2 VTI: 42.2 cm MVA(P1/2t): 2.9 cm2 MVA(VTI): 1.1 cm2 Ao V2 max: 229.9 cm/sec LV V1 max: 100.8 cm/sec SV(LVOT): 47.3 ml Ao max P.2 mmHg LV V1 max P.1 mmHg Ao V2 mean: 146.7 cm/sec LV V1 mean P.8 mmHg Ao mean P.9 mmHg LV V1 mean: 61.9 cm/sec Ao V2 VTI: 40.0 cm LV V1 VTI: 17.4 cm KANDI(I,D): 1.2 cm2 KANDI(V,D): 1.2 cm2 PA V2 max: 89.6 cm/sec TR max alec: 317.2 cm/sec TR max P.2 mmHg ECHO/Echo Complete W/ Contrast Interpretation Summary The estimated ejection fraction is EF 55-60 %. Mild Aortic stenosis Aortic valve area 1.2 cm2 . mean gradient of 9.9 mmhg max AO PG 21.2 mmhg Ordering Physician: Arelis Lockhart Referring Physician: Gabe Mauro Performed By: Laurie Leahy RDCS, RVT
[2020-11-30] MEDS: Furosemide 40 MG/4 ML Vial IV (17:31)
[2020-11-30] MEDS: Acetaminophen 325 MG Tablet 650 MG PO (17:33)
[2020-11-30 17:48] LABS: Troponin-I HS 20 pg/mL (3.0-54.0)
[2020-11-30 19:32] LABS: Troponin-I HS 20 pg/mL (3.0-54.0)
--- NOTE | 2020-11-30 20:52 | PCM.RX.CS ---
Consult Pharmacy has been consulted to manage selected antiobiotic: Vancomycin Type of Consult: New start Suspected Infection: Skin/Soft tissue Prior Doses of Antibiotics Received/Current Regimen: Received 2000mg iv x 1. Labs: Sodium 137 mmol/L (136-145) 11/30/20 12:30 Potassium 4.9 mmol/L (3.5-5.1) 11/30/20 12:30 Chloride 101 mmol/L (98-107) 11/30/20 12:30 Carbon Dioxide 27.0 mmol/L (21.0-32.0) 11/30/20 12:30 Anion Gap 9 (5-15) 11/30/20 12:30 BUN 54 mg/dL (7-18) H 11/30/20 12:30 Creatinine 1.99 mg/dL (0.55-1.02) H 11/30/20 12:30 Est GFR (MDRD) Af Amer 31 mL/min (>60) L 11/30/20 12:30 Est GFR (MDRD) Non-Af 26 mL/min (>60) L 11/30/20 12:30 BUN/Creatinine Ratio 27.1 RATIO (10-20) H 11/30/20 12:30 Glucose 145 mg/dL (74-106) H 11/30/20 12:30 Weight used for dosin kg Estimated Creatinine Clearance: 28ml/min Goal Trough: 15-20 mcg/mL Pharmacy Plan for Drug Dosing: Renal function CrCl calculated to be ~28ml/min for adjusted body weight of 78.5kg. Will begin 1250mg iv q24h starting 24hrs post 2gm loading dose. Trough level ordered for before 3rd total dose per protocol. Pharmacy Service will continue to monitor and adjust dosing as required. Follow-Up Labs: Trough Vancomycin - 10.16.21 @1830 before 1900 dose
[2020-11-30] MEDS: APIXABAN 5 MG TABLET PO (21:20)
[2020-11-30] MEDS: Gabapentin 100 MG Capsule PO (21:20)
[2020-11-30] MEDS: Atorvastatin Calcium 40 MG Tablet PO (21:20)
[2020-11-30 23:02] LABS: Troponin-I HS 17 pg/mL (3.0-54.0)
[2020-11-30] MEDS: Ipratropium/Albuterol Sulfate 3 ML AMPUL.NEB INHALATION (23:22)
[2020-12-01] VITALS (18 sets, daily range): BP systolic 82–101; BP diastolic 48–57; PULSE 46–87; RESP 15–22; TEMP 36.4–37.1; O2SAT 90–99
[2020-12-01] MEDS: Acetaminophen 325 MG Tablet 650 MG PO (05:43)
--- NOTE | 2020-12-01 05:55 | EKG12_ITS ---
Test Reason : PRE-OP Blood Pressure : / mmHG Vent. Rate : 064 BPM Atrial Rate : 036 BPM P-R Int : 000 ms QRS Dur : 080 ms QT Int : 452 ms P-R-T Axes : 000 051 052 degrees QTc Int : 466 ms Atrial fibrillation Low voltage QRS Abnormal ECG When compared with ECG of 30-NOV-2020 12:21, MANUAL COMPARISON REQUIRED, DATA IS UNCONFIRMED Confirmed by ALEX LANG, SANTY ([id number]), make up editor CIPRIANO BOURNE ([id number]) on 12/06/2020 9:50:15 AM Referred By: RAJAN Confirmed By:SANTY JOHNSON MD
[2020-12-01 07:11] LABS: Absolute Lymphocyte Count 1.51 X10^3/uL (0.83-4.51); Absolute Neutrophil Count 3.8 X10^3/uL (2.0-7.7); Basophil# 0.03 X10^3/uL; Basophil% 0.4 % (0-1); Eosinophil# 0.75 X10^3/uL; Eosinophils% 10.4 % (0-5); Hematocrit 32.6 % (37-47); Lymphocyte # 1.51 X10^3/ul (0.83-4.51); Mean Corp Hgb Conc 30.7 g/dL (32-36); Mean Corpuscular Hgb 27.5 pg (27.0-32.0); Mean Corpuscular Volume 89.6 fL (81-99); Monocyte# 1.06 X10^3/uL; Monocyte% 14.8 % (0-10); NRBC Flagged by Analyzer 0 % (0-5); Neutrophil # 3.81 X10^3/uL (2.7-7.7); Neutrophil % 53.1 % (47-70); Platelet Count 243 K/mm3 (150-450); RBC Distribution Width CV 16.1 % (11.6-14.6); RBC Distribution Width SD 52.4 fl (35.1-43.9); Red Blood Count 3.64 M/mm3 (4.2-5.4); White Blood Count 7.2 K/mm3 (4.4-11.0)
[2020-12-01] MEDS: Ipratropium/Albuterol Sulfate 3 ML AMPUL.NEB INHALATION ×3 (07:27→18:59)
[2020-12-01] MEDS: Budesonide Respules 0.5 MG/2 ML AMPUL.NEB. INHALATION ×2 (07:27→18:59)
[2020-12-01 07:39] LABS: Anion Gap 5 (5-15); BUN 58 mg/dL (7-18); Calcium,Total 8.9 mg/dL (8.5-10.1); Chloride 105 mmol/L (98-107); Creatinine, Serum 1.81 mg/dL (0.55-1.02); EST Glomerular Filtration Rate 29 mL/min (>60); Est Glom Filt Rate - Afr Amer 35 mL/min (>60); Glucose 96 mg/dL (74-106); Potassium 4.5 mmol/L (3.5-5.1); Sodium Level 136 mmol/L (136-145)
--- NOTE | 2020-12-01 08:59 | CASEMGMT ---
Addendum entered by Becky Campbell 12/01/20 09:25: RONALD did check with patient and her plan is to return to [place]. Becky JAMES Original Note: Patient is from [facility]. RONALD faxed updates to [place]. RONALD will check in with patient to make sure her plan is to return to [place]. Becky JAMES
[2020-12-01] MEDS: oxyCODONE 5 MG Tablet PO ×2 (09:08→22:17)
[2020-12-01] MEDS: Multivitamins,Therapeutic Tablet 1 TABLET PO (09:54)
[2020-12-01] MEDS: APIXABAN 5 MG TABLET PO ×2 (09:58→22:19)
[2020-12-01] MEDS: dilTIAZem CD 240 MG Capsule PO (09:58)
[2020-12-01] MEDS: Fluticasone 0.05% 1 SPRAY NASAL.SRY NASAL (09:59)
[2020-12-01] MEDS: Pantoprazole Sodium 40 MG Tablet PO (10:01)
--- NOTE | 2020-12-01 12:44 | PCM.PN.HOSP ---
Documented by User: Arelis Lockhart HOOP RIVETING MACHINE OPERATOR-C 12/01/20 12:57 Subjective Subjective Patient seen and examined. Patient states that she is having increased pain today, nurse at bedside administering oxycodone. Patient otherwise denies needs at this time. Objective Data Objective Data Vital Signs: Vital Signs Temp Pulse Resp BP Pulse Ox 97.7 F L 76 15 98/56 L 94 12/01/20 11:40 12/01/20 11:40 12/01/20 11:40 12/01/20 11:40 12/01/20 08:32 Oxygen Flow Rate (L/min) 2 Oxygen Delivery Method Nasal Cannula Weight: 283 lb 15.286 oz Body Mass Index (BMI) 55.3 Intake & Output: Intake and Output for Last 24 Hours 11/29/20 11/30/20 12/01/20 23:59 23:59 23:59 Intake Total 652 / 652 360 / 360 Output Total 650 / 650 100 / 100 Balance 2 / 2 260 / 260 Lab / Micro Data Result Diagrams: 12/02/20 06:05 12/02/20 06:05 Labs: Laboratory Results - last 24 hr 11/30/20 12:30: Sodium 137, Potassium 4.9, Chloride 101, Carbon Dioxide 27.0, Anion Gap 9, BUN 54 H, Creatinine 1.99 H, Estim Creat Clear Calc 0.00, Est GFR (MDRD) Af Amer 31 L, Est GFR (MDRD) Non-Af 26 L, BUN/Creatinine Ratio 27.1 H, Glucose 145 H, Calcium 8.9 11/30/20 12:30: B-Natriuretic Peptide 865.1 H 11/30/20 17:15: Troponin I High Sens 20 11/30/20 19:00: Troponin I High Sens 20 11/30/20 22:35: Troponin I High Sens 17 12/01/20 05:25: WBC 7.2, RBC 3.64 L, Hgb 10.0 L, Hct 32.6 L, MCV 89.6, MCH 27.5, MCHC 30.7 L, RDW Std Deviation 52.4 H, RDW Coeff of Rasta 16.1 H, Plt Count 243, MPV 11.0, Immature Gran % (Auto) 0.300, Neut % (Auto) 53.1, Lymph % (Auto) 21.0, [place] % (Auto) 14.8 H, Eos % (Auto) 10.4 H, Baso % (Auto) 0.4, Absolute Neuts (auto) 3.8, Absolute Lymphs (auto) 1.51, Nucleated RBC % 0 12/01/20 05:25: Sodium 136, Potassium 4.5, Chloride 105, Carbon Dioxide 26.0, Anion Gap 5, BUN 58 H, Creatinine 1.81 H, Estim Creat Clear Calc 18.10, Est GFR (MDRD) Af Amer 35 L, Est GFR (MDRD) Non-Af 29 L, BUN/Creatinine Ratio 32.0 H, Glucose 96, Calcium 8.9 Radiography Diagnostic Testing: Radiology Impression Chest X-Ray 11/30/20 14:55 IMPRESSION: Mild cardiomegaly. The lungs are clear. Electronically Signed: Aristeo Spring MD at 15:17 EDT , Service support , Renal Ultrasound 11/30/20 14:59 IMPRESSION: 1. Atrophic left kidney without mass. 2. Normal right kidney. 3. Bladder wall thickening. 4. Gallstones with gallbladder wall thickening. Electronically Signed: Jas Crooks DO at 18:57 EDT Tel [phone], Service support , Rhythm Strip Rhythm Strip: A-fib Rate: 75 Ectopy: None Physical Exam Const alert, oriented x3 and no apparent distress General Appearance: cooperative HEENT normocephalic and head/scalp atraumatic Eyes conjunctivae normal and no scleral icterus Neck full ROM and supple General: trachea midline Lymph Lymphatic Narrative: Bilateral lower extremity edema. Resp normal respiratory effort, normal air movement and clear to auscultation bilaterally Cardio regular rate, regular rhythm, S1 normal heart sound, S2 normal heart sound and peripheral pulses 2+ throughout GI normal to inspection, nondistended, normoactive bowel sounds, soft to palpation and non-tender Extremity normal to inspection, normal capillary refill and no clubbing, cyanosis or edema General Extremity: edema and no tenderness to palpation of joints or extremities Skin Skin Narrative: Marked erythema and induration over the left breast. No fluctuance noted. No lesions noted. Underneath her pannus she had some mild erythema but no definitive candidiasis. General Skin Exam: no breakdown and turgor normal Lesions: no lesions Rashes: rashes noted Erythematous warm rash noted to left breast patch symmetrical red No fluctuent and Yes indurated dry and warm moderate cellulitis Neuro no focal motor deficits and no sensory deficits noted Speech: speech normal Motor Exam: Negative for general weakness Psych thought process normal, cooperative and affect normal Appearance: appropriate Assessment & Plan Assessment/Plan (1) Cellulitis of left breast: (2) (HFpEF) heart failure with preserved ejection fraction: PLAN: 1. Cellulitis of the left breast -Admit to MedSurg -Continue vancomycin -Outline reddened area with skin marker reduced from previous assessment 2. Acute on chronic congestive heart failure -Echocardiogram results pending -Continue IV Lasix twice daily -Strict intake and output along with daily weights -CBC and BMP daily -Twelve-lead EKG every a.m. 3. Acute on chronic renal insufficiency -Continue intake and output -Kidney and bladder ultrasound demonstrates atrophic left kidney without mass, normal right kidney, bladder wall thickening, gallstones with gallbladder wall thickening. -Creatinine improved from yesterday -Continue to hold lisinopril 4. Hypertension -Continue valsartan. -Hold lisinopril due to acute on chronic renal insufficiency 5. COPD -Stable -Continue budesonide, fluticasone. -Albuterol nebulizer treatments as needed 6. A. fib -Continue Eliquis, metoprolol DVT prophylaxis-not indicated patient chronically anticoagulated with Eliquis This patient was seen by MATTIE BurgosC under the supervision of Dr. Rizvi. Documented by User: Dr. Telly Rizvi MD 12/02/20 10:53 Objective Data Lab / Micro Data Result Diagrams: 12/02/20 06:05 12/02/20 06:05 Charges/Coding Addendum Addendum: Dr. Rizvi: I personally reviewed the chart and examined the patient, and agree with the above findings. 40-year-old female who [facility] as well as redness and swelling in her left chest and breast. She had been on [facility] without any significant improvement and she states that she had had a 30 pound weight gain over the last 2 to 3 weeks. We will continue with IV antibiotics and see if we can get any culture data. We will also contact the [facility] to see which antibiotic she failed which might help indicate causative organism. We will continue with diuresis, echo done showed an EF of 55 to 60% with mild aortic stenosis. She is also complaining of hip and knee pain which [facility], will continue with pain medication. Visit Charges Inpatient E&M: 62424 Subs Hosp L2
--- NOTE | 2020-12-01 14:20 | NURSING ---
Read and reviewed SN documentation
[2020-12-01] MEDS: Furosemide 40 MG/4 ML Vial IV (18:31)
[2020-12-01] MEDS: Atorvastatin Calcium 40 MG Tablet PO (22:19)
[2020-12-01] MEDS: Gabapentin 100 MG Capsule PO (22:19)
[2020-12-02] VITALS (13 sets, daily range): BP systolic 86–115; BP diastolic 41–64; PULSE 74–93; RESP 16–18; TEMP 36.7–37; O2SAT 95–98
[2020-12-02 06:43] LABS: Absolute Neutrophil Count 4.6 X10^3/uL (2.0-7.7); Basophil# 0.02 X10^3/uL; Basophil% 0.3 % (0-1); Eosinophil# 0.41 X10^3/uL; Eosinophils% 5.9 % (0-5); Hematocrit 30.5 % (37-47); Hemoglobin 9.2 g/dL (12.0-15.0); Lymphocyte % 17.1 % (19-41); Mean Corp Hgb Conc 30.2 g/dL (32-36); Mean Corpuscular Hgb 27.3 pg (27.0-32.0); Mean Corpuscular Volume 90.5 fL (81-99); Mean Platelet Vol. 10.5 fl (6.2-12.0); Monocyte# 0.79 X10^3/uL; Monocyte% 11.3 % (0-10); NRBC Flagged by Analyzer 0 % (0-5); Neutrophil # 4.56 X10^3/uL (2.7-7.7); Neutrophil % 65.1 % (47-70); Platelet Count 239 K/mm3 (150-450); RBC Distribution Width CV 16.1 % (11.6-14.6); RBC Distribution Width SD 52.4 fl (35.1-43.9); Red Blood Count 3.37 M/mm3 (4.2-5.4)
[2020-12-02] MEDS: oxyCODONE 5 MG Tablet PO ×3 (06:49→21:41)
[2020-12-02 07:19] LABS: ALB/GLOB Ratio 0.5 RATIO (0.9-2.4); AST(SGOT) 29 U/L (15-37); Alanine Aminotransfer ALT/SGPT 16 U/L (13-56); Albumin, Serum 1.9 g/dL (3.2-5.0); Alkaline Phosphatase 97 U/L (45-117); Anion Gap 8 (5-15); BUN 59 mg/dL (7-18); BUN/Creat Ratio 30.4 RATIO (10-20); Calcium,Total 8.3 mg/dL (8.5-10.1); Chloride 102 mmol/L (98-107); Creatinine, Serum 1.94 mg/dL (0.55-1.02); EST Glomerular Filtration Rate 27 mL/min (>60); Est Glom Filt Rate - Afr Amer 32 mL/min (>60); Estimated Creatinine Clearance 16.89 ml/min; Globulin 3.9 g/dL (2.2-4.2); Glucose 118 mg/dL (74-106); Potassium 4.7 mmol/L (3.5-5.1); Protein, Total 5.8 g/dL (6.4-8.2); Sodium Level 137 mmol/L (136-145)
[2020-12-02] MEDS: Ipratropium/Albuterol Sulfate 3 ML AMPUL.NEB INHALATION ×3 (07:33→18:59)
[2020-12-02] MEDS: Budesonide Respules 0.5 MG/2 ML AMPUL.NEB. INHALATION ×2 (07:33→18:59)
[2020-12-02] MEDS: Fluticasone 0.05% 1 SPRAY NASAL.SRY NASAL (08:14)
[2020-12-02] MEDS: Furosemide 40 MG/4 ML Vial IV ×2 (08:15→17:04)
[2020-12-02] MEDS: Pantoprazole Sodium 40 MG Tablet PO (08:17)
[2020-12-02] MEDS: Multivitamins,Therapeutic Tablet 1 TABLET PO (08:17)
[2020-12-02] MEDS: APIXABAN 5 MG TABLET PO ×2 (08:17→21:31)
--- NOTE | 2020-12-02 10:12 | PCS.PANDOC ---
PANDEMIC DOCUMENTATION INITIATED: Date: 10/02/2020 Time: 190
--- NOTE | 2020-12-02 10:21 | PCM.PN.HOSP ---
Documented by User: Arelis Lockhart NP-C 12/02/20 10:26 Subjective Subjective Patient seen and examined. Patient states she is feeling better today. Patient states that her pain is currently well controlled with current pain medication regimen. Patient denies further needs at this time Objective Data Objective Data Vital Signs: Vital Signs Temp Pulse Resp BP Pulse Ox 98.2 F 89 16 105/61 96 12/02/20 10:06 12/02/20 10:06 12/02/20 10:06 12/02/20 10:06 12/02/20 10:06 Oxygen Flow Rate (L/min) 3 Oxygen Delivery Method Nasal Cannula Weight: 284 lb 2.813 oz Body Mass Index (BMI) 55.3 Intake & Output: Intake and Output for Last 24 Hours 11/30/20 12/01/20 12/02/20 23:59 23:59 23:59 Intake Total 652 / 652 635 / 755 240 / 240 Output Total 650 / 650 300 / 400 100 / 100 Balance 2 / 2 335 / 355 140 / 140 Lab / Micro Data Result Diagrams: 12/02/20 06:05 12/02/20 06:05 Labs: Laboratory Results - last 24 hr 12/02/20 06:05: WBC 7.0, RBC 3.37 L, Hgb 9.2 L, Hct 30.5 L, MCV 90.5, MCH 27.3, MCHC 30.2 L, RDW Std Deviation 52.4 H, RDW Coeff of Rasta 16.1 H, Plt Count 239, MPV 10.5, Immature Gran % (Auto) 0.300, Neut % (Auto) 65.1, Lymph % (Auto) 17.1 L, [place] % (Auto) 11.3 H, Eos % (Auto) 5.9 H, Baso % (Auto) 0.3, Absolute Neuts (auto) 4.6, Absolute Lymphs (auto) 1.20, Nucleated RBC % 0 12/02/20 06:05: Sodium 137, Potassium 4.7, Chloride 102, Carbon Dioxide 27.0, Anion Gap 8, BUN 59 H, Creatinine 1.94 H, Estim Creat Clear Calc 16.89, Est GFR (MDRD) Af Amer 32 L, Est GFR (MDRD) Non-Af 27 L, BUN/Creatinine Ratio 30.4 H, Glucose 118 H, Calcium 8.3 L, Total Bilirubin 0.50, AST 29, ALT 16, Alkaline Phosphatase 97, Total Protein 5.8 L, Albumin 1.9 L, Globulin 3.9, Albumin/Globulin Ratio 0.5 L Radiography Diagnostic Testing: Radiology Impression Echocardiogram 11/30/20 16:43 Interpretation Summary The estimated ejection fraction is EF 55-60 %. Mild Aortic stenosis Aortic valve area 1.2 cm2 . mean gradient of 9.9 mmhg max AO PG 21.2 mmhg Ordering Physician: Arelis Lockhart Referring Physician: Gabe Mauro Performed By: Laurie Leahy RDCS, RVT Rhythm Strip Rhythm Strip: A-fib Rate: 75 Ectopy: None Physical Exam Const alert, oriented x3 and no apparent distress General Appearance: cooperative HEENT normocephalic and head/scalp atraumatic Eyes conjunctivae normal and no scleral icterus Neck full ROM and supple General: trachea midline Lymph Lymphatic Narrative: Bilateral lower extremity edema. Resp normal respiratory effort, normal air movement and clear to auscultation bilaterally Auscultation: diminished lung sounds Cardio regular rate, regular rhythm, S1 normal heart sound, S2 normal heart sound and peripheral pulses 2+ throughout GI normal to inspection, nondistended, normoactive bowel sounds, soft to palpation and non-tender Extremity normal to inspection, normal capillary refill and no clubbing, cyanosis or edema General Extremity: edema and no tenderness to palpation of joints or extremities Skin Skin Narrative: Marked erythema and induration over the left breast, improving. No fluctuance noted. No lesions noted. Underneath her pannus she had some mild erythema but no definitive candidiasis. General Skin Exam: no breakdown and turgor normal Lesions: no lesions Rashes: rashes noted Neuro no focal motor deficits and no sensory deficits noted Speech: speech normal Motor Exam: Negative for general weakness Psych thought process normal, cooperative and affect normal Appearance: appropriate Assessment & Plan Assessment/Plan (1) Cellulitis of left breast: (2) (HFpEF) heart failure with preserved ejection fraction: PLAN: 1. Cellulitis of the left breast -Continue vancomycin -Outline reddened area, reduced from previous assessment 2. Acute on chronic congestive heart failure -Echocardiogram demonstrates EF 55 to 60%, mild aortic stenosis. -Continue IV Lasix twice daily -Strict intake and output along with daily weights -CBC and BMP daily -Twelve-lead EKG every a.m. 3. Acute on chronic renal insufficiency -Continue intake and output -Kidney and bladder ultrasound demonstrates atrophic left kidney without mass, normal right kidney, bladder wall thickening, gallstones with gallbladder wall thickening. -Creatinine slightly increased from previous today, currently 1.94 BMP ordered -Continue to hold lisinopril 4. Hypertension -Continue valsartan. -Hold lisinopril due to acute on chronic renal insufficiency 5. COPD -Stable -Continue budesonide, fluticasone. -Albuterol nebulizer treatments as needed 6. A. fib -Continue Eliquis, metoprolol DVT prophylaxis-not indicated patient chronically anticoagulated with Eliquis This patient was seen by MATTIE BurgosC under the supervision of Dr. Rizvi. Documented by User: Dr. Telly Rizvi MD 12/02/20 10:56 Objective Data Lab / Micro Data Result Diagrams: 12/02/20 06:05 12/02/20 06:05 Charges/Coding Addendum Addendum: Dr. Rizvi: I personally reviewed the chart and examined the patient, and agree with the above findings. 40-year-old female who [facility] with shortness of breath as well as redness and swelling in her left chest and breast. She had been on antibiotics for about a week at the [facility] without any significant improvement and she states that she had had a 30 pound weight gain over the last 2 to 3 weeks. We will continue with IV antibiotics and see if we can get any culture data. We will also contact the retirement to see which antibiotic she failed which might help indicate causative organism. We will continue with diuresis, echo done showed an EF of 55 to 60% with mild aortic stenosis. She is also complaining of hip and knee pain which she has chronically at the retirement, will continue with pain medication. 12/02/2020: Doing well, she has gone up a little bit on her oxygen I think this is secondary to the fact that her Lasix was held yesterday due to soft blood pressures. Encourage nursing staff to continue with Lasix as this will likely improve her blood pressure. Continue with IV antibiotics, cellulitis does appear to be improving. Visit Charges Inpatient E&M: 36267 Subs Hosp L2
[2020-12-02] MEDS: Acetaminophen 325 MG Tablet 650 MG PO (13:10)
[2020-12-02 19:19] LABS: Vancomycin, Trough Level 18.3 ug/mL (5.0-15.0)
[2020-12-02] MEDS: 0.9% Saline Lock 10 ML Syringe IV (19:49)
--- NOTE | 2020-12-02 20:18 | PCM.RX.CS ---
Consult Pharmacy has been consulted to manage selected antiobiotic: Vancomycin Type of Consult: Follow-up Suspected Infection: Skin/Soft tissue Prior Doses of Antibiotics Received/Current Regimen: Medications Vancomycin HCl 1,250 mg/ (Sodium Chloride) 275 mls @ 167 mls/hr IV Q24H AVANI Last Admin: 12/02/20 19:49 Dose: 167 mls/hr Labs: Sodium 137 mmol/L (136-145) 12/02/20 06:05 Potassium 4.7 mmol/L (3.5-5.1) 12/02/20 06:05 Chloride 102 mmol/L (98-107) 12/02/20 06:05 Carbon Dioxide 27.0 mmol/L (21.0-32.0) 12/02/20 06:05 Anion Gap 8 (5-15) 12/02/20 06:05 BUN 59 mg/dL (7-18) H 12/02/20 06:05 Creatinine 1.94 mg/dL (0.55-1.02) H 12/02/20 06:05 Est GFR (MDRD) Af Amer 32 mL/min (>60) L 12/02/20 06:05 Est GFR (MDRD) Non-Af 27 mL/min (>60) L 12/02/20 06:05 BUN/Creatinine Ratio 30.4 RATIO (10-20) H 12/02/20 06:05 Glucose 118 mg/dL (74-106) H 12/02/20 06:05 Vancomycin Trough 18.3 ug/mL (5.0-15.0) H 12/02/20 18:36 Weight used for dosin.9 kg Estimated Creatinine Clearance: 29 (by ABW Goal Trough: 15-20 mcg/mL Pharmacy Plan for Drug Dosing: Vancomycin trough level of 18.3 was right within the target range. Will continue same dosing and re-draw a trough in 3 more doses. Pharmacy Service will continue to monitor and adjust dosing as required. Follow-Up Labs: Trough Vancomycin Labs to be done on [date and time ordered]: 12/04/20 @9480
[2020-12-02] MEDS: Atorvastatin Calcium 40 MG Tablet PO (21:31)
[2020-12-02] MEDS: Gabapentin 100 MG Capsule PO (21:32)
[2020-12-02] MEDS: Metoprolol Tartrate 50 MG Tablet PO (21:32)
[2020-12-03] VITALS (14 sets, daily range): BP systolic 83–128; BP diastolic 48–69; PULSE 67–84; RESP 16–20; TEMP 36.5–36.8; O2SAT 92–99
[2020-12-03 06:31] LABS: Absolute Lymphocyte Count 0.95 X10^3/uL (0.83-4.51); Absolute Neutrophil Count 4.6 X10^3/uL (2.0-7.7); Basophil# 0.02 X10^3/uL; Basophil% 0.3 % (0-1); Eosinophil# 0.83 X10^3/uL; Eosinophils% 11.1 % (0-5); Hematocrit 31.9 % (37-47); Hemoglobin 9.7 g/dL (12.0-15.0); Lymphocyte # 0.95 X10^3/ul (0.83-4.51); Lymphocyte % 12.7 % (19-41); Mean Corp Hgb Conc 30.4 g/dL (32-36); Mean Corpuscular Hgb 27.7 pg (27.0-32.0); Mean Corpuscular Volume 91.1 fL (81-99); Mean Platelet Vol. 10.5 fl (6.2-12.0); Monocyte# 1.08 X10^3/uL; Monocyte% 14.5 % (0-10); NRBC Flagged by Analyzer 0 % (0-5); Neutrophil # 4.57 X10^3/uL (2.7-7.7); Neutrophil % 61.1 % (47-70); Platelet Count 231 K/mm3 (150-450); RBC Distribution Width SD 52.7 fl (35.1-43.9); White Blood Count 7.5 K/mm3 (4.4-11.0)
[2020-12-03 07:04] LABS: ALB/GLOB Ratio 0.5 RATIO (0.9-2.4); AST(SGOT) 26 U/L (15-37); Alanine Aminotransfer ALT/SGPT 16 U/L (13-56); Albumin, Serum 1.9 g/dL (3.2-5.0); Alkaline Phosphatase 104 U/L (45-117); Anion Gap 8 (5-15); BUN 65 mg/dL (7-18); BUN/Creat Ratio 36.3 RATIO (10-20); Calcium,Total 8.5 mg/dL (8.5-10.1); Chloride 101 mmol/L (98-107); Creatinine, Serum 1.79 mg/dL (0.55-1.02); EST Glomerular Filtration Rate 29 mL/min (>60); Est Glom Filt Rate - Afr Amer 35 mL/min (>60); Estimated Creatinine Clearance 18.31 ml/min; Globulin 4.2 g/dL (2.2-4.2); Glucose 94 mg/dL (74-106); Potassium 4.6 mmol/L (3.5-5.1); Protein, Total 6.1 g/dL (6.4-8.2); Sodium Level 136 mmol/L (136-145)
[2020-12-03] MEDS: Budesonide Respules 0.5 MG/2 ML AMPUL.NEB. INHALATION ×2 (07:10→18:41)
[2020-12-03] MEDS: Ipratropium/Albuterol Sulfate 3 ML AMPUL.NEB INHALATION ×2 (07:10→18:41)
[2020-12-03] MEDS: Fluticasone 0.05% 1 SPRAY NASAL.SRY NASAL (09:16)
[2020-12-03] MEDS: Multivitamins,Therapeutic Tablet 1 TABLET PO (09:16)
[2020-12-03] MEDS: Pantoprazole Sodium 40 MG Tablet PO (09:16)
[2020-12-03] MEDS: APIXABAN 5 MG TABLET PO ×2 (09:16→21:10)
[2020-12-03] MEDS: oxyCODONE 5 MG Tablet PO ×2 (09:17→19:27)
[2020-12-03] MEDS: Furosemide 40 MG/4 ML Vial IV ×2 (09:26→17:23)
[2020-12-03] MEDS: dilTIAZem CD 240 MG Capsule PO (09:27)
[2020-12-03] MEDS: Metoprolol Tartrate 50 MG Tablet PO (09:27)
--- NOTE | 2020-12-03 10:44 | PN.HOSP_ITS ---
Documented by User: Arelis Lockhart, MIXER MACHINE FEEDER-C 12/03/20 10:53 Subjective Subjective Patient seen and examined. Patient states that she is breathing much better today. Patient rash to left breast continues to improve. Patient denies needs at this time Objective Data Objective Data Vital Signs: Vital Signs Temp Pulse Resp BP Pulse Ox 98.1 F 82 16 120/67 99 12/03/20 09:13 12/03/20 09:27 12/03/20 09:13 12/03/20 09:27 12/03/20 09:13 Oxygen Flow Rate (L/min) 2 Oxygen Delivery Method Nasal Cannula Weight: 295 lb 13.765 oz Body Mass Index (BMI) 55.3 Intake & Output: Intake and Output for Last 24 Hours 12/01/20 12/02/20 12/03/20 23:59 23:59 23:59 Intake Total 635 / 755 1415 / 1895 480 / 480 Output Total 300 / 400 450 / 625 300 / 300 Balance 335 / 355 965 / 1270 180 / 180 Lab / Micro Data Result Diagrams: 12/03/20 05:10 12/03/20 05:10 Labs: Laboratory Results - last 24 hr 12/02/20 18:36: Vancomycin Trough 18.3 H 12/03/20 05:10: WBC 7.5, RBC 3.50 L, Hgb 9.7 L, Hct 31.9 L, MCV 91.1, MCH 27.7, MCHC 30.4 L, RDW Std Deviation 52.7 H, RDW Coeff of Rasta 16.0 H, Plt Count 231, MPV 10.5, Immature Gran % (Auto) 0.300, Neut % (Auto) 61.1, Lymph % (Auto) 12.7 L, [place] % (Auto) 14.5 H, Eos % (Auto) 11.1 H, Baso % (Auto) 0.3, Absolute Neuts (auto) 4.6, Absolute Lymphs (auto) 0.95, Nucleated RBC % 0 12/03/20 05:10: Sodium 136, Potassium 4.6, Chloride 101, Carbon Dioxide 27.0, Anion Gap 8, BUN 65 H, Creatinine 1.79 H, Estim Creat Clear Calc 18.31, Est GFR (MDRD) Af Amer 35 L, Est GFR (MDRD) Non-Af 29 L, BUN/Creatinine Ratio 36.3 H, Glucose 94, Calcium 8.5, Total Bilirubin 0.60, AST 26, ALT 16, Alkaline Phos phatase 104, Total Protein 6.1 L, Albumin 1.9 L, Globulin 4.2, Albumin/Globulin Ratio 0.5 L Rhythm Strip Rhythm Strip: A-fib Rate: 75 Ectopy: None Physical Exam Const alert, oriented x3 and no apparent distress General Appearance: cooperative HEENT normocephalic and head/scalp atraumatic Eyes conjunctivae normal and no scleral icterus Neck full ROM and supple General: trachea midline Lymph Lymphatic Narrative: Bilateral lower extremity edema. Resp normal respiratory effort, normal air movement and clear to auscultation bilaterally Auscultation: diminished lung sounds Cardio regular rate, regular rhythm, S1 normal heart sound, S2 normal heart sound and peripheral pulses 2+ throughout GI normal to inspection, nondistended, normoactive bowel sounds, soft to palpation and non-tender Extremity normal to inspection, normal capillary refill and no clubbing, cyanosis or edema General Extremity: edema and no tenderness to palpation of joints or extremities Skin Skin Narrative: Marked erythema and induration over the left breast, improving. No fluctuance noted. No lesions noted. Underneath her pannus she had some mild erythema but no definitive candidiasis. General Skin Exam: no breakdown and turgor normal Lesions: no lesions Rashes: rashes noted Erythematous warm rash noted to left breast patch symmetrical red No fluctuent and Yes indurated dry and warm moderate cellulitis Neuro no focal motor deficits and no sensory deficits noted Speech: speech normal Motor Exam: Negative for general weakness Psych thought process normal, cooperative and affect normal Appearance: appropriate Assessment & Plan Assessment/Plan (1) Cellulitis of left breast: (2) (HFpEF) heart failure with preserved ejection fraction: PLAN: 1. Cellulitis of the left breast -Transitioned from Vancomycin to Ancef -Outline reddened area, reduced from previous assessment 2. Acute on chronic congestive heart failure -Echocardiogram demonstrates EF 55 to 60%, mild aortic stenosis. -Continue IV Lasix twice daily -Strict intake and output along with daily weights -CBC and BMP daily -Twelve-lead EKG every a.m. 3. Acute on chronic renal insufficiency -Continue intake and output -Kidney and bladder ultrasound demonstrates atrophic left kidney without mass, normal right kidney, bladder wall thickening, gallstones with gallbladder wall thickening. -Creatinine improved to 1.79 today, continue daily BMPs -Continue to hold lisinopril 4. Hypertension -Continue valsartan. -Hold lisinopril due to acute on chronic renal insufficiency 5. COPD -Stable -Continue budesonide, fluticasone. -Albuterol nebulizer treatments as needed 6. A. fib -Continue Eliquis, metoprolol DVT prophylaxis-not indicated patient chronically anticoagulated with Eliquis This patient was seen by MATTIE BurgosC under the supervision of Dr. Rizvi. Documented by User: Dr. Telly Rizvi MD 12/03/20 13:28 Objective Data Lab / Micro Data Result Diagrams: 12/03/20 05:10 12/03/20 05:10 Charges/Coding Addendum Addendum: Dr. Rizvi: I personally reviewed the chart and examined the patient, and agree with the above findings. 40-year-old female who presents from the senior care with shortness of breath as well as redness and swelling in her left chest and [address]a [address]. She had been on antibiotics for about a week at the senior care without any significant improvement and she states that she had had a 30 pound weight gain over the last 2 to 3 weeks. We will continue with IV antibiotics and see if we can get any culture data. We will also contact the senior care to see which antibiotic she failed which might help indicate causative organism. We will continue with diuresis, echo done showed an EF of 55 to 60% with mild aortic stenosis. She is also complaining of hip and knee pain which she has chronically at the senior care, will continue with pain medication. 12/02/2020: Doing well, she has gone up a little bit on her oxygen I think this is secondary to the fact that her Lasix was held yesterday due to soft blood pressures. Encourage nursing staff to continue with Lasix as this will likely improve her blood pressure. Continue with IV antibiotics, cellulitis does appear to be improving. 12/03/2020: Doing well and feels much better, still states that the area of cellulitis in her left breast is still little bit thick but improving. We will transition her to [facility] to see if her cellulitis continues to improve that we have an antibiotic we could discharge her on. Apparently she was on 7 days of Augmentin without significant improvement. Also continue with twice daily Lasix to diurese her as much as possible. We will have to be a little bit gentle secondary to her mild aortic stenosis. Visit Charges Inpatient E&M: 21420 Subs Hosp L2
[2020-12-03] MEDS: Gabapentin 100 MG Capsule PO (21:10)
[2020-12-03] MEDS: Atorvastatin Calcium 40 MG Tablet PO (21:10)
[2020-12-04] VITALS (13 sets, daily range): BP systolic 91–113; BP diastolic 53–64; PULSE 71–86; RESP 18–20; TEMP 36.4–37.1; O2SAT 93–97
[2020-12-04] MEDS: Nystatin Powder 15gm Bottle 1 APPLIC TOPICAL ×2 (00:42→09:40)
[2020-12-04] MEDS: Menthol/Lanolin/Calamine/Znox 113 GM Tube 1 APPLIC TOPICAL ×2 (00:43→09:41)
[2020-12-04 05:37] LABS: Absolute Lymphocyte Count 1.41 X10^3/uL (0.83-4.51); Basophil# 0.02 X10^3/uL; Basophil% 0.2 % (0-1); Eosinophil# 0.78 X10^3/uL; Eosinophils% 8.2 % (0-5); Hematocrit 32.4 % (37-47); Hemoglobin 9.8 g/dL (12.0-15.0); Lymphocyte # 1.41 X10^3/ul (0.83-4.51); Lymphocyte % 14.8 % (19-41); Mean Corp Hgb Conc 30.2 g/dL (32-36); Mean Corpuscular Hgb 27.1 pg (27.0-32.0); Mean Corpuscular Volume 89.8 fL (81-99); Mean Platelet Vol. 10.7 fl (6.2-12.0); Monocyte% 13.6 % (0-10); NRBC Flagged by Analyzer 0 % (0-5); Neutrophil % 62.8 % (47-70); Platelet Count 243 K/mm3 (150-450); RBC Distribution Width SD 51.8 fl (35.1-43.9); Red Blood Count 3.61 M/mm3 (4.2-5.4); White Blood Count 9.6 K/mm3 (4.4-11.0)
[2020-12-04] MEDS: Acetaminophen 325 MG Tablet 650 MG PO (06:09)
[2020-12-04 06:16] LABS: ALB/GLOB Ratio 0.4 RATIO (0.9-2.4); AST(SGOT) 25 U/L (15-37); Alanine Aminotransfer ALT/SGPT 16 U/L (13-56); Albumin, Serum 1.9 g/dL (3.2-5.0); Alkaline Phosphatase 110 U/L (45-117); Anion Gap 8 (5-15); BUN 67 mg/dL (7-18); BUN/Creat Ratio 37.2 RATIO (10-20); Calcium,Total 8.6 mg/dL (8.5-10.1); Chloride 101 mmol/L (98-107); EST Glomerular Filtration Rate 29 mL/min (>60); Est Glom Filt Rate - Afr Amer 35 mL/min (>60); Globulin 4.4 g/dL (2.2-4.2); Glucose 118 mg/dL (74-106); Potassium 4.8 mmol/L (3.5-5.1); Protein, Total 6.3 g/dL (6.4-8.2); Sodium Level 136 mmol/L (136-145)
[2020-12-04] MEDS: Ipratropium/Albuterol Sulfate 3 ML AMPUL.NEB INHALATION (07:22)
[2020-12-04] MEDS: Budesonide Respules 0.5 MG/2 ML AMPUL.NEB. INHALATION (07:22)
[2020-12-04] MEDS: oxyCODONE 5 MG Tablet PO (09:11)
[2020-12-04] MEDS: Metoprolol Tartrate 50 MG Tablet PO (09:36)
[2020-12-04] MEDS: Pantoprazole Sodium 40 MG Tablet PO (09:38)
[2020-12-04] MEDS: Multivitamins,Therapeutic Tablet 1 TABLET PO (09:38)
[2020-12-04] MEDS: dilTIAZem CD 240 MG Capsule PO (09:38)
[2020-12-04] MEDS: APIXABAN 5 MG TABLET PO (09:39)
[2020-12-04] MEDS: Fluticasone 0.05% 1 SPRAY NASAL.SRY NASAL (09:40)
[2020-12-04] MEDS: Furosemide 40 MG/4 ML Vial IV (09:40)
--- NOTE | 2020-12-04 10:31 | CASEMGMT ---
Social Work Per Dr. Jones, patient cleared for discharge today. Met with patient in room. Patient confirms to be aware of discharge today and confirms with plan to return to [facility]. Patient request for this social economist to contact patient daughterVelia in regards to discharge plan today. Telephone call to patient daughterVelia. Velia agreeable to discharge plan and request for this social economist to contact Carin Velásquez ([phone]) to set up transportation back to [facility] for patient. Telephone call to Bailee Velásquez. This social economist updated Bailee on plan for patient to discharge today. Bailee request for updated clinicals. Clinicals faxed. Will fax discharge information when obtained. Patient long-term resident at [facility]. Bailee reports that plan will be to skill patient due to patient hospital stay. Telephone call to Carin Del Rosario reports to be able to pick patient up at 2:00pm. Will continue to follow. Pending COVID-19 test result and D/C information. Tomasa GARDNER, ERIKA-S
--- NOTE | 2020-12-04 10:38 | PCM.TXEXTCAR ---
Documented by User: BALTA Burgos 12/04/20 11:07 Diet 11/30/20 16:44 Diet: Cardiac - Heart Healthy Food consistency:: Regular Liquid Consistency:: Regular/Thin Dietary Modifications:: Sodium Restricted Is pt able to select menu?: Yes Fluid restriction:: 1500 mL Routine Orders/Code Status Enema Type: Fleetz Enema Frequency: Daily PRN Suppository Type: Dulcolax 10mg Suppository Frequency: Daily PRN Routine Lab Work: CBC and BMP Code Status: DNRCC-A Wound(s) left breast: Wound Type: cellulitis Bilateral buttocks: Wound Type: Skin Tear Left Abdominal fold: Wound Type: Skin Tear Posterior Right thigh: Wound Type: Skin Tear Labia: Wound Type: Skin Tear Suggestions for Active Care Change Position every (hours): 2 Hours to sit in a chair: 2 Times a day to sit in chair: 3 Problem/Diagnosis (1) Cellulitis of left breast: Status: Acute (2) (HFpEF) heart failure with preserved ejection fraction: Status: Acute Allergies/Procedures Done in Hospital Allergies acetaminophen [From Darvocet-N] Allergy (Verified 11/30/20 11:42) Shortness of breath carvedilol Allergy (Verified 11/30/20 11:42) ?dizzy celecoxib Allergy (Verified 11/30/20 11:42) Rash codeine Allergy (Verified 11/30/20 11:42) Shortness of breath etodolac Allergy (Verified 11/30/20 11:42) Rash irbesartan Allergy (Verified 11/30/20 11:42) hypertensive latex Allergy (Verified 11/30/20 11:42) skin peels lisinopril Allergy (Verified 11/30/20 11:42) unknown losartan Allergy (Verified 11/30/20 11:42) unknown morphine Allergy (Verified 11/30/20 11:42) Shortness of breath Opioids - Morphine Analogues Allergy (Verified 11/30/20 11:42) Shortness of breath propoxyphene [From Darvon] Allergy (Verified 11/30/20 11:42) Shortness of breath propoxyphene napsylate [From Darvocet-N] Allergy (Verified 11/30/20 11:42) Shortness of breath sotalol Allergy (Verified 11/30/20 11:42) unknown Procedures: 2-D Echocardiogram and EKG Type of Care/Length of Stay Estimated LOS: More Than 30 Days Type of Care Needed: Intermediate Rehab Potential: Fair Prognosis: Fair Additional Orders/Day of Discharge Day of Discharge: 12/04/20 Dietary and Speech Recommendations Dietitian Recommendations/Changes: Will change diet to Cardiac / Sodium Restricted w/ 1500 ml fluid restriction Discharge Plan Admission Admit Date/Time: 11/30/20 14:50 Primary Reason for Your Visit: Left Breast Cellulitis Attending Provider: Alysha Jones Primary Care Provider: Gabe Mauro Discharge Orders/Prescriptions Prescriptions: New furosemide [Lasix] 40 mg tablet 40 mg PO BID Qty: 60 RF: 0 cephalexin 500 mg capsule 500 mg PO Q8H 5 Days Qty: 15 RF: 0 Continued diltiazem HCl 240 mg capsule,extended release 24hr 240 mg PO DAILY RF: 0 Anoro Ellipta 62.5-25 mcg/actuation blister with device 1 inh INHALATION DAILY RF: 0 atorvastatin 40 mg tablet 40 mg PO DAILY RF: 0 Beano 150 unit tablet 150 unit PO BID PRN (Reason: Gas) RF: 0 Eliquis 5 mg tablet 5 mg PO BID RF: 0 acetaminophen [Tylenol] 325 mg capsule 325 mg PO Q6H PRN (Reason: Pain) RF: 0 fluticasone propionate 50 mcg/actuation spray,suspension 1 spray intranasal DAILY RF: 0 bisacodyl [Dulcolax (bisacodyl)] 10 mg suppository 10 mg RC DAILY PRN (Reason: Constipation) RF: 0 oxycodone 5 mg tablet 5 mg PO Q4H PRN (Reason: Pain) RF: 0 pantoprazole 40 mg tablet,delayed release (DR/EC) 40 mg PO DAILY RF: 0 diclofenac sodium [Voltaren] 1 % gel 4 gm TOPICAL TID RF: 0 magnesium hydroxide [Milk of Magnesia] 400 mg/5 mL suspension 30 ml PO DAILY PRN (Reason: Constipation) RF: 0 Pulmicort Flexhaler 180 mcg/actuation aerosol powdr breath activated 2 inh INHALATION BID RF: 0 gabapentin 300 mg capsule 300 mg PO QHS RF: 0 multivitamin 1 TABLET tablet 1 tablet PO DAILY RF: 0 albuterol sulfate 1 INHALER inhaler 1 - 2 puff INHALATION Q4H PRN PRN (Reason: Dyspnea/Wheezing/Sob) RF: 0 valsartan-hydrochlorothiazide 1 TABLET tablet 1 tablet PO DAILY RF: 0 sennosides-docusate sodium 1 TABLET tablet 2 tablet PO BID PRN PRN (Reason: Constipation) RF: 0 Lactobacillus rhamnosus GG 15 billion cell Capsule, Sprinkle 1 cap PO DAILY RF: 0 metoprolol tartrate 50 mg tablet 50 mg PO BID Qty: 0 RF: 0 Discontinued furosemide 40 mg tablet 40 mg PO DAILY RF: 0 Referrals / Follow Up: Gabe Mauro MD [Primary Care Provider] - Disposition Disposition (needs filled in before D/C Order can be placed): NonSkilled NH/Intermed Care Documented by User: Dr. Alysha Jones MD 12/04/20 16:23 Allergies/Procedures Done in Hospital Allergies acetaminophen [From Darvocet-N] Allergy (Verified 11/30/20 11:42) Shortness of breath carvedilol Allergy (Verified 11/30/20 11:42) ?dizzy celecoxib Allergy (Verified 11/30/20 11:42) Rash codeine Allergy (Verified 11/30/20 11:42) Shortness of breath etodolac Allergy (Verified 11/30/20 11:42) Rash irbesartan Allergy (Verified 11/30/20 11:42) hypertensive latex Allergy (Verified 11/30/20 11:42) skin peels lisinopril Allergy (Verified 11/30/20 11:42) unknown losartan Allergy (Verified 11/30/20 11:42) unknown morphine Allergy (Verified 11/30/20 11:42) Shortness of breath Opioids - Morphine Analogues Allergy (Verified 11/30/20 11:42) Shortness of breath propoxyphene [From Darvon] Allergy (Verified 11/30/20 11:42) Shortness of breath propoxyphene napsylate [From Darvocet-N] Allergy (Verified 11/30/20 11:42) Shortness of breath sotalol Allergy (Verified 11/30/20 11:42) unknown Discharge Plan Admission Admit Date/Time: 11/30/20 14:50 Primary Reason for Your Visit: Left Breast Cellulitis Attending Provider: Alysha Jones Primary Care Provider: Gabe Mauro Discharge Orders/Prescriptions Prescriptions: New furosemide [Lasix] 40 mg tablet 40 mg PO BID Qty: 60 RF: 0 cephalexin 500 mg capsule 500 mg PO Q8H 5 Days Qty: 15 RF: 0 Continued diltiazem HCl 240 mg capsule,extended release 24hr 240 mg PO DAILY RF: 0 Anoro Ellipta 62.5-25 mcg/actuation blister with device 1 inh INHALATION DAILY RF: 0 atorvastatin 40 mg tablet 40 mg PO DAILY RF: 0 Beano 150 unit tablet 150 unit PO BID PRN (Reason: Gas) RF: 0 Eliquis 5 mg tablet 5 mg PO BID RF: 0 acetaminophen [Tylenol] 325 mg capsule 325 mg PO Q6H PRN (Reason: Pain) RF: 0 fluticasone propionate 50 mcg/actuation spray,suspension 1 spray intranasal DAILY RF: 0 bisacodyl [Dulcolax (bisacodyl)] 10 mg suppository 10 mg RC DAILY PRN (Reason: Constipation) RF: 0 oxycodone 5 mg tablet 5 mg PO Q4H PRN (Reason: Pain) RF: 0 pantoprazole 40 mg tablet,delayed release (DR/EC) 40 mg PO DAILY RF: 0 diclofenac sodium [Voltaren] 1 % gel 4 gm TOPICAL TID RF: 0 magnesium hydroxide [Milk of Magnesia] 400 mg/5 mL suspension 30 ml PO DAILY PRN (Reason: Constipation) RF: 0 Pulmicort Flexhaler 180 mcg/actuation aerosol powdr breath activated 2 inh INHALATION BID RF: 0 gabapentin 300 mg capsule 300 mg PO QHS RF: 0 multivitamin 1 TABLET tablet 1 tablet PO DAILY RF: 0 albuterol sulfate 1 INHALER inhaler 1 - 2 puff INHALATION Q4H PRN PRN (Reason: Dyspnea/Wheezing/Sob) RF: 0 valsartan-hydrochlorothiazide 1 TABLET tablet 1 tablet PO DAILY RF: 0 sennosides-docusate sodium 1 TABLET tablet 2 tablet PO BID PRN PRN (Reason: Constipation) RF: 0 Lactobacillus rhamnosus GG 15 billion cell Capsule, Sprinkle 1 cap PO DAILY RF: 0 metoprolol tartrate 50 mg tablet 50 mg PO BID Qty: 0 RF: 0 Discontinued furosemide 40 mg tablet 40 mg PO DAILY RF: 0 Referrals / Follow Up: Gabe Mauro MD [Primary Care Provider] - Disposition Disposition (needs filled in before D/C Order can be placed): NonSkilled NH/Intermed Care
--- NOTE | 2020-12-04 10:51 | PCM.DC.SUM ---
Documented by User: BALTA Burgos 12/04/20 11:05 Providers Date of Admission: 11/30/20 Primary Care Physician: Dr. Gabe Mauro MD Reason For Visit: CHF EXAC LEFT BREAST CELLULITIS Diagnosis Discharge Diagnosis (1) Cellulitis of left breast: Status: Acute Code(s): N61.0 - Mastitis without abscess (2) (HFpEF) heart failure with preserved ejection fraction: Status: Acute Code(s): I50.30 - Unspecified diastolic (congestive) heart failure Medications at Discharge Home Medications albuterol sulfate 1 - 2 puff INHALATION Q4H PRN PRN 06/04/13 multivitamin 1 tablet PO DAILY 06/04/13 valsartan-hydrochlorothiazide 1 tablet PO DAILY 06/04/13 diltiazem HCl 240 mg capsule,extended release 24 hr 240 mg PO DAILY 05/10/20 umeclidinium 62.5 mcg-vilanterol 25 mcg/actuation powdr for inhalation 1 inh INHALATION DAILY 05/10/20 sennosides-docusate sodium 2 tablet PO BID PRN PRN tablet 05/24/20 bisacodyl 10 mg rectal suppository 10 mg RC DAILY PRN 05/31/20 budesonide 180 mcg/actuation breath activated powder inhaler 2 inh INHALATION BID 05/31/20 diclofenac sodium 1 % topical gel 4 gm TOPICAL TID gm 05/31/20 magnesium hydroxide 400 mg/5 mL oral suspension 30 ml PO DAILY PRN ml 05/31/20 oxycodone 5 mg tablet 5 mg PO Q4H PRN 05/31/20 pantoprazole 40 mg tablet,delayed release 40 mg PO DAILY 05/31/20 acetaminophen 325 mg capsule 325 mg PO Q6H PRN 06/23/20 bjbxp-n-xufiqajericai 150 unit tablet 150 unit PO BID PRN 06/23/20 apixaban 5 mg tablet 5 mg PO BID 06/23/20 atorvastatin 40 mg tablet 40 mg PO DAILY 06/23/20 fluticasone propionate 50 mcg/actuation nasal spray,suspension 1 spray INTRANASAL DAILY 06/23/20 gabapentin 300 mg capsule 300 mg PO QHS 10/25/20 Lactobacillus rhamnosus GG 1 cap PO DAILY 11/30/20 cephalexin 500 mg PO Q8H 5 Days #15 cap 12/04/20 furosemide [Lasix] 40 mg PO BID #60 tab 12/04/20 metoprolol tartrate 50 mg PO BID #0 tab 12/04/20 Hospital Course Procedures 2-D Echocardiogram and EKG Summary of Care Provided Minutes Spent on Discharge: 35 Hospital Course: Patient is a 80-year-old female who presented to the ER with complaints of left breast pain and redness. Patient was noted to have a erythematous, swollen, warm tender left breast. Patient was initiated on vancomycin at that time as patient had failed outpatient treatment with Augmentin. Patient continue vancomycin x3 days at which time she was switched to Ancef which has continued to improve redness and tenderness. Patient will be discharged on p.o. Keflex. Patient was also noted to have an elevated BNP of 865.1 upon admission. Patient was also initiated on IV Lasix. Patient will be discontinued on 40 mg Lasix twice daily, patient was previously on daily. Physical Exam Const alert, oriented x3 and no apparent distress General Appearance: cooperative HEENT normocephalic and head/scalp atraumatic Eyes conjunctivae normal and no scleral icterus Neck supple General: trachea midline Resp normal respiratory effort and normal air movement Effort and Inspection: labored Auscultation: diminished lung sounds Cardio regular rate, regular rhythm, S1 normal heart sound, S2 normal heart sound and peripheral pulses 2+ throughout GI normal to inspection, nondistended, normoactive bowel sounds, soft to palpation and non-tender Extremity normal capillary refill and no clubbing, cyanosis or edema General Extremity: edema and no tenderness to palpation of joints or extremities Skin General Skin Exam: no breakdown and turgor normal Lesions: no lesions Rashes: rashes noted Erythematous warm rash noted to left breast patch symmetrical red No fluctuent and Yes indurated dry and warm moderate cellulitis Neuro no focal motor deficits and no sensory deficits noted Speech: speech normal Motor Exam: Negative for general weakness Psych thought process normal, cooperative and affect normal Appearance: appropriate Weight / BMI Weight Weight: 297 lb 6.457 oz Body Mass Index (BMI) 55.3 ABG / Lab / Microbiology Data Result Diagrams: 12/04/20 04:45 12/04/20 04:45 Laboratory: Laboratory Results - last 24 hr 12/04/20 04:45: WBC 9.6, RBC 3.61 L, Hgb 9.8 L, Hct 32.4 L, MCV 89.8, MCH 27.1, MCHC 30.2 L, RDW Std Deviation 51.8 H, RDW Coeff of [place] 16.0 H, Plt Count 243, MPV 10.7, Immature Gran % (Auto) 0.400, Neut % (Auto) 62.8, Lymph % (Auto) 14.8 L, [place] % (Auto) 13.6 H, Eos % (Auto) 8.2 H, Baso % (Auto) 0.2, Absolute Neuts (auto) 6.0, Absolute Lymphs (auto) 1.41, Nucleated RBC % 0 12/04/20 04:45: Sodium 136, Potassium 4.8, Chloride 101, Carbon Dioxide 27.0, Anion Gap 8, BUN 67 H, Creatinine 1.80 H, Estim Creat Clear Calc 18.20, Est GFR (MDRD) Af Amer 35 L, Est GFR (MDRD) Non-Af 29 L, BUN/Creatinine Ratio 37.2 H, Glucose 118 H, Calcium 8.6, Total Bilirubin 0.60, AST 25, ALT 16, Alkaline Phosphatase 110, Total Protein 6.3 L, Albumin 1.9 L, Globulin 4.4 H, Albumin/Globulin Ratio 0.4 L D/C Instructions Discharge Diet: No restrictions, Low fat / Low cholesterol and 6 Cup Fluid Restriction Discharge Activity: Return to Normal Activity Call your doctor if you observe: Shortness of breath, Swelling in the ankles, Chest pain and Increased palpitations (irregular heartbeat) Please Follow Up With: Gabe Mauro MD When: 1-2 weeks Meaningful Use Info Meaningful Use Diagnoses (Choose all that apply): CHF CHF CEE/ARB ordered at discharge?: No Reason CEE/ARB not ordered?: Allergy Documented LVEF (%): 55 Discharge Plan Admission Admit Date/Time: 11/30/20 14:50 Primary Reason for Your Visit: Left Breast Cellulitis Attending Provider: Alysha Jones Primary Care Provider: Gabe Mauro Discharge Orders/Prescriptions Prescriptions: New furosemide [Lasix] 40 mg tablet 40 mg PO BID Qty: 60 RF: 0 cephalexin 500 mg capsule 500 mg PO Q8H 5 Days Qty: 15 RF: 0 Continued diltiazem HCl 240 mg capsule,extended release 24hr 240 mg PO DAILY RF: 0 Anoro Ellipta 62.5-25 mcg/actuation blister with device 1 inh INHALATION DAILY RF: 0 atorvastatin 40 mg tablet 40 mg PO DAILY RF: 0 Beano 150 unit tablet 150 unit PO BID PRN (Reason: Gas) RF: 0 Eliquis 5 mg tablet 5 mg PO BID RF: 0 acetaminophen [Tylenol] 325 mg capsule 325 mg PO Q6H PRN (Reason: Pain) RF: 0 fluticasone propionate 50 mcg/actuation spray,suspension 1 spray intranasal DAILY RF: 0 bisacodyl [Dulcolax (bisacodyl)] 10 mg suppository 10 mg RC DAILY PRN (Reason: Constipation) RF: 0 oxycodone 5 mg tablet 5 mg PO Q4H PRN (Reason: Pain) RF: 0 pantoprazole 40 mg tablet,delayed release (DR/EC) 40 mg PO DAILY RF: 0 diclofenac sodium [Voltaren] 1 % gel 4 gm TOPICAL TID RF: 0 magnesium hydroxide [Milk of Magnesia] 400 mg/5 mL suspension 30 ml PO DAILY PRN (Reason: Constipation) RF: 0 Pulmicort Flexhaler 180 mcg/actuation aerosol powdr breath activated 2 inh INHALATION BID RF: 0 gabapentin 300 mg capsule 300 mg PO QHS RF: 0 multivitamin 1 TABLET tablet 1 tablet PO DAILY RF: 0 albuterol sulfate 1 INHALER inhaler 1 - 2 puff INHALATION Q4H PRN PRN (Reason: Dyspnea/Wheezing/Sob) RF: 0 valsartan-hydrochlorothiazide 1 TABLET tablet 1 tablet PO DAILY RF: 0 sennosides-docusate sodium 1 TABLET tablet 2 tablet PO BID PRN PRN (Reason: Constipation) RF: 0 Lactobacillus rhamnosus GG 15 billion cell Capsule, Sprinkle 1 cap PO DAILY RF: 0 metoprolol tartrate 50 mg tablet 50 mg PO BID Qty: 0 RF: 0 Discontinued furosemide 40 mg tablet 40 mg PO DAILY RF: 0 Referrals / Follow Up: Gabe Mauro MD [Primary Care Provider] - Disposition Disposition (needs filled in before D/C Order can be placed): NonSkilled NH/Intermed Care Documented by User: Dr. Alysha Jones MD 12/04/20 16:29 Providers Date of Admission: 11/30/20 Reason For Visit: CHF EXAC LEFT BREAST CELLULITIS Medications at Discharge Home Medications albuterol sulfate 1 - 2 puff INHALATION Q4H PRN PRN 06/04/13 multivitamin 1 tablet PO DAILY 06/04/13 valsartan-hydrochlorothiazide 1 tablet PO DAILY 06/04/13 diltiazem HCl 240 mg capsule,extended release 24 hr 240 mg PO DAILY 05/10/20 umeclidinium 62.5 mcg-vilanterol 25 mcg/actuation powdr for inhalation 1 inh INHALATION DAILY 05/10/20 sennosides-docusate sodium 2 tablet PO BID PRN PRN tablet 05/24/20 bisacodyl 10 mg rectal suppository 10 mg RC DAILY PRN 05/31/20 budesonide 180 mcg/actuation breath activated powder inhaler 2 inh INHALATION BID 05/31/20 diclofenac sodium 1 % topical gel 4 gm TOPICAL TID gm 05/31/20 magnesium hydroxide 400 mg/5 mL oral suspension 30 ml PO DAILY PRN ml 05/31/20 oxycodone 5 mg tablet 5 mg PO Q4H PRN 05/31/20 pantoprazole 40 mg tablet,delayed release 40 mg PO DAILY 05/31/20 acetaminophen 325 mg capsule 325 mg PO Q6H PRN 06/23/20 odpix-y-cyfedzfwkcjgl 150 unit tablet 150 unit PO BID PRN 06/23/20 apixaban 5 mg tablet 5 mg PO BID 06/23/20 atorvastatin 40 mg tablet 40 mg PO DAILY 06/23/20 fluticasone propionate 50 mcg/actuation nasal spray,suspension 1 spray INTRANASAL DAILY 06/23/20 gabapentin 300 mg capsule 300 mg PO QHS 10/25/20 Lactobacillus rhamnosus GG 1 cap PO DAILY 11/30/20 cephalexin 500 mg PO Q8H 5 Days #15 cap 12/04/20 furosemide [Lasix] 40 mg PO BID #60 tab 12/04/20 metoprolol tartrate 50 mg PO BID #0 tab 12/04/20 ABG / Lab / Microbiology Data Result Diagrams: 12/04/20 04:45 12/04/20 04:45 Discharge Plan Admission Admit Date/Time: 11/30/20 14:50 Primary Reason for Your Visit: Left Breast Cellulitis Attending Provider: Alysha Jones Primary Care Provider: Gabe Mauro Discharge Orders/Prescriptions Prescriptions: New furosemide [Lasix] 40 mg tablet 40 mg PO BID Qty: 60 RF: 0 cephalexin 500 mg capsule 500 mg PO Q8H 5 Days Qty: 15 RF: 0 Continued diltiazem HCl 240 mg capsule,extended release 24hr 240 mg PO DAILY RF: 0 Anoro Ellipta 62.5-25 mcg/actuation blister with device 1 inh INHALATION DAILY RF: 0 atorvastatin 40 mg tablet 40 mg PO DAILY RF: 0 Beano 150 unit tablet 150 unit PO BID PRN (Reason: Gas) RF: 0 Eliquis 5 mg tablet 5 mg PO BID RF: 0 acetaminophen [Tylenol] 325 mg capsule 325 mg PO Q6H PRN (Reason: Pain) RF: 0 fluticasone propionate 50 mcg/actuation spray,suspension 1 spray intranasal DAILY RF: 0 bisacodyl [Dulcolax (bisacodyl)] 10 mg suppository 10 mg RC DAILY PRN (Reason: Constipation) RF: 0 oxycodone 5 mg tablet 5 mg PO Q4H PRN (Reason: Pain) RF: 0 pantoprazole 40 mg tablet,delayed release (DR/EC) 40 mg PO DAILY RF: 0 diclofenac sodium [Voltaren] 1 % gel 4 gm TOPICAL TID RF: 0 magnesium hydroxide [Milk of Magnesia] 400 mg/5 mL suspension 30 ml PO DAILY PRN (Reason: Constipation) RF: 0 Pulmicort Flexhaler 180 mcg/actuation aerosol powdr breath activated 2 inh INHALATION BID RF: 0 gabapentin 300 mg capsule 300 mg PO QHS RF: 0 multivitamin 1 TABLET tablet 1 tablet PO DAILY RF: 0 albuterol sulfate 1 INHALER inhaler 1 - 2 puff INHALATION Q4H PRN PRN (Reason: Dyspnea/Wheezing/Sob) RF: 0 valsartan-hydrochlorothiazide 1 TABLET tablet 1 tablet PO DAILY RF: 0 sennosides-docusate sodium 1 TABLET tablet 2 tablet PO BID PRN PRN (Reason: Constipation) RF: 0 Lactobacillus rhamnosus GG 15 billion cell Capsule, Sprinkle 1 cap PO DAILY RF: 0 metoprolol tartrate 50 mg tablet 50 mg PO BID Qty: 0 RF: 0 Discontinued furosemide 40 mg tablet 40 mg PO DAILY RF: 0 Referrals / Follow Up: Gabe Mauro MD [Primary Care Provider] - Disposition Disposition (needs filled in before D/C Order can be placed): [facility] [place] Charges/Coding Addendum Addendum: Patient seen by Arelis GIFFORD under my supervision Patient is a 80-year-old female with an extensive past medical history as outlined was admitted through the ED on 11/30/2020 with a complaint of left breast pain and swelling with associated shortness of breath. Left breast was also warm to touch with associated chills. She denied any fever, cough, chest pain, nausea or vomiting. Review of systems otherwise negative. She had been on antibiotics for approximately 1 week prior to admission for cellulitis of the left breast. She also complained of a 30 pound weight gain over the past 2 3 weeks despite an increase in her diuretics. She was admitted and managed for acute on chronic exacerbation of heart failure as well as cellulitis of the left breast. She was started on IV Unasyn and vancomycin. She had a known EF of 60 to 65%. She was diuresed with IV Lasix. Swelling of the left breast gradually improved as well as pain. She was subsequently switched to Ancef. Symptoms gradually improved. Shortness of breath also improved and she felt much better. She was discharged to a [facility]pc facility. Patient was seen and examined prior to discharge. She felt better, though she complained of pain in her right leg and shoulder which were chronic and longstanding.. Review of systems otherwise negative. Labs and vitals reviewed. Home medication reviewed and reconciled. O/E: Const alert, oriented x3 and no apparent distress General Appearance: cooperative HEENT normocephalic and head/scalp atraumatic Eyes conjunctivae normal and no scleral icterus Neck supple General: trachea midline Resp normal respiratory effort and normal air movement Effort and Inspection: labored Auscultation: diminished lung sounds Cardio regular rate, regular rhythm, S1 normal heart sound, S2 normal heart sound and peripheral pulses 2+ throughout GI normal to inspection, nondistended, normoactive bowel sounds, soft to palpation and non-tender Extremity normal capillary refill and no clubbing, cyanosis or edema General Extremity: edema and no tenderness to palpation of joints or extremities Skin General Skin Exam: no breakdown and turgor normal Lesions: no lesions Rashes: rashes noted Erythematous warm rash noted to left breast patch symmetrical red, cellulitis of left breast has improved Neuro no focal motor deficits and no sensory deficits noted Speech: speech normal Motor Exam: Negative for general weakness Psych thought process normal, cooperative and affect normal Appearance: appropriate Plan is for discharge to SNF today. Rest as per Arelis Lockhart [employer]'s note, which I have reviewed and endorsed.
--- NOTE | 2020-12-04 12:13 | CASEMGMT ---
Social Work Discharge information, COVID-19 test results, and signed medication list faxed to [facility]. Telephone call to patient daughter, Velia. Velia updated on discharge time. Spoke with patient in room, updated on discharge time of 2:00pm via [facility] wheelchair van. Patient agreeable. Discharge plan: [facility], intermediate level of care. Tomasa Lomeli
--- NOTE | 2020-12-04 12:20 | NURSING ---
Report called to nurse Cannon for pt d/c back to [facility].
--- NOTE | 2020-12-04 13:35 | NURSING ---
This RN reviewed SN charting and was with SN during all medication administration
== END 2020-12-04 14:07 | disposition intermediate care facility (04) | DRG 291 ==
LOC: ED 14:45 → PCU 15:51
PROVIDERS: Nurse Practitioner Family; Emergency Provider Emergency Medicine; PCP Family Medicine; Visit Provider Student in an Organized Health Care Education/Training Program
DX: I13.0 Hypertensive heart and chronic kidney disease with heart failure and stage 1 through stage 4 chronic kidney disease, or unspecified chronic kidney disease (principal); I50.33 Acute on chronic diastolic (congestive) heart failure; N18.4 Chronic kidney disease, stage 4 (severe); Z68.43 Body mass index [BMI] 50.0-59.9, adult; N17.9 Acute kidney failure, unspecified; N61.0 Mastitis without abscess; E11.22 Type 2 diabetes mellitus with diabetic chronic kidney disease; I48.91 Unspecified atrial fibrillation; J44.9 Chronic obstructive pulmonary disease, unspecified; E78.5 Hyperlipidemia, unspecified; I34.2 Nonrheumatic mitral (valve) stenosis; I36.1 Nonrheumatic tricuspid (valve) insufficiency; E66.01 Morbid (severe) obesity due to excess calories; Z79.01 Long term (current) use of anticoagulants; Z79.899 Other long term (current) drug therapy; Z86.718 Personal history of other venous thrombosis and embolism; Z86.73 Personal history of transient ischemic attack (TIA), and cerebral infarction without residual deficits
CPT/HCPCS: 36415; 71045; 76770; 80048; 80053; 80202; 83880; 84484; 85025; 85027; 87426; 93005; 93306; 94640; 97161; 97166; 99251; 99285; J7040; J7050; Q9957; A4216; C8929; G0463; J0295; J1940; J2405; J3490

== ENCOUNTER 2020-12-07 12:56 | Emergency (ER) | payer MEDICARE, OTHER, MEDICAID, SELFPAY ==
[2020-12-07] VITALS (7 sets, daily range): BP systolic 83–115; BP diastolic 42–70; PULSE 62–67; RESP 10–20; TEMP 36.4; O2SAT 89–100; BMI 58.1
--- NOTE | 2020-12-07 13:17 | RAD_ITS ---
STUDY: X-RAY CHEST REASON FOR EXAM: Female, 80 years old. Sob TECHNIQUE: Single AP portable view of the chest. COMPARISON: Comparison is made with prior study dated 11/30/2020. FINDINGS: EKG electrodes are seen. The lungs are clear and expanded. There is no demonstrated pleural abnormality. There is mild cardiac enlargement. Calcification of the mitral valve annulus. Normal mediastinum and teresa. Normal visualized pulmonary arteries. There is atherosclerotic calcification of the aortic arch with tortuosity. There are diffuse degenerative changes of the visualized thoracic spine. Normal visualized ribs, clavicles, and shoulders. There is no demonstrated abnormality of the visualized soft tissue structures of the upper abdomen. RAD/Chest 1 View (Portable) IMPRESSION: Mild cardiomegaly. The lungs are clear. Electronically Signed: Aristeo Spring MD at 14:11 EDT , Service support ,
--- NOTE | 2020-12-07 13:21 | EDS_ITS ---
HPI History of Present Illness Chief Complaint: Edema Narrative Narrative: Patient presents with generalized edema. She has diastolic heart failure, she was recently in the hospital and was diuresed however relatively unsuccessful, she continues to get worse and she is short of breath and she is on oxygen at her [facility]. Apparently there was a meeting between the PCP at the [facility] and family members and they want her to be hospitalized 1 more time to see if this improves her symptoms with IV diuretics, and will consider hospice and palliative care afterwards. [facility] Medical History Acute kidney failure Atrial fibrillation Chronic kidney disease CKD (chronic kidney disease) Congestive heart failure (CHF) COPD with asthma CVA (cerebral vascular accident) CVA (cerebral vascular accident) DM2 (diabetes mellitus, type 2) Dyslipidemia Essential hypertension Heart failure with preserved ejection fraction Hepatitis A History of cardioversion History of DVT (deep vein thrombosis) Hypercholesteremia Hypokalemia Lymphedema Morbid obesity Nonrheumatic mitral valve stenosis with insufficiency Nonrheumatic tricuspid (valve) insufficiency Pure hypercholesterolemia Home Medications albuterol sulfate 1 - 2 puff INHALATION Q4H PRN PRN 06/04/13 [History Last Taken 05/22/20] multivitamin 1 tablet PO DAILY 06/04/13 [History Last Taken 12/07/20 10:41] valsartan-hydrochlorothiazide 1 tablet PO DAILY 06/04/13 [History Last Taken 12/07/20 10:41] diltiazem HCl 240 mg capsule,extended release 24 hr 240 mg PO DAILY 05/10/20 [History Last Taken 12/07/20 10:41] umeclidinium 62.5 mcg-vilanterol 25 mcg/actuation powdr for inhalation 1 inh INHALATION DAILY 05/10/20 [History Last Taken 12/06/20] sennosides-docusate sodium 2 tablet PO BID PRN PRN tablet 05/24/20 [Rx Last Taken Unknown] bisacodyl 10 mg rectal suppository 10 mg RC DAILY PRN 05/31/20 [History Last Taken Unknown] budesonide 180 mcg/actuation breath activated powder inhaler 2 inh INHALATION BID 05/31/20 [History Last Taken 12/07/20 10:41] magnesium hydroxide 400 mg/5 mL oral suspension 30 ml PO DAILY PRN ml 05/31/20 [History Last Taken Unknown] pantoprazole 40 mg tablet,delayed release 40 mg PO DAILY 05/31/20 [History Last Taken 12/07/20 10:41] plhiv-j-idjwmvpaxmerw 150 unit tablet 150 unit PO BID PRN 06/23/20 [History Last Taken Unknown] apixaban 5 mg tablet 5 mg PO BID 06/23/20 [History Last Taken 12/07/20 10:41] atorvastatin 40 mg tablet 40 mg PO DAILY 06/23/20 [History Last Taken 12/06/20] fluticasone propionate 50 mcg/actuation nasal spray,suspension 1 spray INTRANASAL DAILY 06/23/20 [History Last Taken 12/07/20 10:41] gabapentin 300 mg capsule 300 mg PO QHS 10/25/20 [History Last Taken 12/06/20] Lactobacillus rhamnosus GG 1 cap PO DAILY 11/30/20 [History Last Taken 12/07/20 10:41] cephalexin 500 mg PO Q8H 5 Days #15 cap 12/04/20 [Rx Last Taken 12/07/20] furosemide [Lasix] 40 mg PO BID #60 tab 12/04/20 [Rx Last Taken 12/07/20 10:41] metoprolol tartrate 50 mg PO BID #0 tab 12/04/20 [Rx Last Taken 12/07/20 10:41] acetaminophen [Tylenol] 650 mg PO Q6H PRN 12/07/20 [History Last Taken Unknown] diclofenac sodium 4 g TOPICAL TID 12/07/20 [History Last Taken 12/06/20] oxycodone 10 mg PO TID 12/07/20 [History Last Taken 12/07/20 12:13] Allergy/AdvReac Type Severity Reaction Status Date / Time acetaminophen Allergy Shortness Verified 12/07/20 12:59 [From Melvin] of breath carvedilol Allergy ?dizzy Verified 12/07/20 12:59 celecoxib Allergy Rash Verified 12/07/20 12:59 codeine Allergy Shortness Verified 12/07/20 12:59 of breath etodolac Allergy Rash Verified 12/07/20 12:59 irbesartan Allergy hypertensiv Verified 12/07/20 12:59 e latex Allergy skin peels Verified 12/07/20 12:59 lisinopril Allergy unknown Verified 12/07/20 12:59 losartan Allergy unknown Verified 12/07/20 12:59 morphine Allergy Shortness Verified 12/07/20 12:59 of breath Opioids - Morphine Analogues Allergy Shortness Verified 12/07/20 12:59 of breath propoxyphene [From Darvon] Allergy Shortness Verified 12/07/20 12:59 of breath propoxyphene napsylate Allergy Shortness Verified 12/07/20 12:59 [From Darvocet-N] of breath sotalol Allergy unknown Verified 12/07/20 12:59 lodine Allergy NEEDS Uncoded 12/07/20 12:59 FOLLOW-UP Family History Mother Asthma Cancer CHF (congestive heart failure) Hypertension Heart disease Hyperchloremia FH: mental illness Father Cancer Son Asthma Daughter Cancer Surgical History History of arthroplasty of knee History of carpal tunnel release History of total hip replacement Hx of abdominal hysterectomy Social History Smoking Status: Never smoker alcohol intake: never substance use type: does not use caffeine: Yes Type: coffee Number of servings: 1 ROS ROS ED ROS Narrative Past medical history: Reviewed, it is quite extensive, see above Medications: Reviewed Social history: Noncontributory Review of systems: All systems negative except as indicated General: No fever. Generalized weakness as in HPI Eyes: No visual changes ENT: No upper airway congestion, normal voice. Facial swelling Neck: No neck pain Cardiovascular: No chest pain Respiratory: Shortness of breath seems to be somewhat worse Gastrointestinal: No abdominal pain, nausea vomiting or diarrhea Genitourinary: She started having hematuria last night Musculoskeletal: Generalized edema Skin: Edema no obvious redness Neurological: No focal weakness Psych: No recent behavioral changes Hematologic: Easy bleeding EXAM Physical Exam Narrative Exam Narrative: Physical exam General: Patient appears chronically and acutely ill. Head: Normocephalic, Atraumatic Eyes: Conjunctiva not pale ENT: Facial edema Neck: Supple, Nontender, No lymphadenopathy Cardiovascular: Irregular rate she does have a systolic murmur Respiratory: Coarse bilateral breath sounds with rhonchi. Abdomen: Soft, no tenderness but it is distended. Back: No obvious CVA tenderness Extremities: Significant upper and lower extremity edema without any evidence of cellulitis Skin: No erythema or calor Neurological: No gross focal deficit Const Vital Signs: 12/07/20 12:59 12/07/20 13:46 12/07/20 15:00 Temperature 97.5 F L Temperature Source Oral Pulse Rate 67 62 Respiratory Rate 18 11 L Respiratory Effort Short of Breath Labored Respiratory Pattern Tachypnea Blood Pressure 115/70 88/61 L Blood Pressure Mean 85 70 Pulse Ox 100 94 Oxygen Delivery Method Nasal Cannula Nasal Cannula Oxygen Flow Rate (L/min) 2 3 MDM MDM MDM Narrative Medical decision making narrative: Patient will be admitted, I am most significantly worried since her renal function is worsening because of the diuretics however she has quite a bit of edema. I did tell her that she is quite ill, she understands that I discussed with the hospitalist for admission Lab Data Labs: Laboratory Results - last 24 hr 12/07/20 12/07/20 12/07/20 13:15 13:15 13:15 WBC 14.3 H RBC 3.78 L Hgb 10.4 L Hct 34.5 L MCV 91.3 MCH 27.5 MCHC 30.1 L RDW Std Deviation 54.4 H RDW Coeff of [place] 16.2 H Plt Count 314 MPV 10.4 Immature Gran % (Auto) 0.500 Neut % (Auto) 76.1 H Lymph % (Auto) 7.7 L [place] % (Auto) 9.7 Eos % (Auto) 5.7 H Baso % (Auto) 0.3 Absolute Neuts (auto) 10.9 H Absolute Lymphs (auto) 1.10 Nucleated RBC % 0 PT INR Sodium 133 L Potassium 5.0 Chloride 99 Carbon Dioxide 31.0 Anion Gap 3 L BUN 79 H Creatinine 2.16 H Estim Creat Clear Calc 15.17 Est GFR (MDRD) Af Amer 28 L Est GFR (MDRD) Non-Af 23 L BUN/Creatinine Ratio 36.6 H Glucose 118 H Calcium 9.0 Total Bilirubin 0.70 AST 37 ALT 17 Alkaline Phosphatase 118 H B-Natriuretic Peptide 689.3 H Total Protein 7.2 Albumin 2.1 L Globulin 5.1 H Albumin/Globulin Ratio 0.4 L Urine Color Urine Clarity Urine pH Ur Specific [place] Urine Protein Urine Glucose (UA) Urine Ketones Urine Occult Blood Urine Nitrite Urine Bilirubin Urine Urobilinogen Ur Leukocyte Esterase Urine RBC Urine WBC Ur Squamous Epith Cells Urine Bacteria Urine Mucus 12/07/20 12/07/20 13:35 13:40 WBC RBC Hgb Hct MCV MCH MCHC RDW Std Deviation RDW Coeff of [place] Plt Count MPV Immature Gran % (Auto) Neut % (Auto) Lymph % (Auto) [place] % (Auto) Eos % (Auto) Baso % (Auto) Absolute Neuts (auto) Absolute Lymphs (auto) Nucleated RBC % PT 23.5 H INR 2.2 Sodium Potassium Chloride Carbon Dioxide Anion Gap BUN Creatinine Estim Creat Clear Calc Est GFR (MDRD) Af Amer Est GFR (MDRD) Non-Af BUN/Creatinine Ratio Glucose Calcium Total Bilirubin AST ALT Alkaline Phosphatase B-Natriuretic Peptide Total Protein Albumin Globulin Albumin/Globulin Ratio Urine Color Red Urine Clarity Turbid Urine pH 7.[address] [place] 1.015 Urine Protein 500 H Urine Glucose (UA) Normal Urine Ketones 15 H Urine Occult Blood 250 H Urine Nitrite Negative Urine Bilirubin Negative Urine Urobilinogen Normal Ur Leukocyte Esterase Negative Urine RBC > 100 SEEN Urine WBC 0 SEEN Ur Squamous Epith Cells 0-5 SEEN Urine Bacteria 0 SEEN Urine Mucus 0 SEEN Radiography Diagnostic Testing: Clinical Impression(s) from Imaging Studies Chest X-Ray 12/07/20 13:17 IMPRESSION: Mild cardiomegaly. The lungs are clear. Electronically Signed: Aristeo Spring MD at 14:11 EDT , Service support , Discharge Plan Triage Chief Complaint: Edema ED Provider: Rakesh Brooks Dx/Rx/DC Orders Clinical Impression: Dyspnea, Edema Prescriptions: No Action diltiazem HCl 240 mg capsule,extended release 24hr 240 mg PO DAILY RF: 0 Anoro Ellipta 62.5-25 mcg/actuation blister with device 1 inh INHALATION DAILY RF: 0 atorvastatin 40 mg tablet 40 mg PO DAILY RF: 0 Beano 150 unit tablet 150 unit PO BID PRN (Reason: Gas) RF: 0 Eliquis 5 mg tablet 5 mg PO BID RF: 0 fluticasone propionate 50 mcg/actuation spray,suspension 1 spray intranasal DAILY RF: 0 bisacodyl [Dulcolax (bisacodyl)] 10 mg suppository 10 mg RC DAILY PRN (Reason: Constipation) RF: 0 pantoprazole 40 mg tablet,delayed release (DR/EC) 40 mg PO DAILY RF: 0 magnesium hydroxide [Milk of Magnesia] 400 mg/5 mL suspension 30 ml PO DAILY PRN (Reason: Constipation) RF: 0 Pulmicort Flexhaler 180 mcg/actuation aerosol powdr breath activated 2 inh INHALATION BID RF: 0 gabapentin 300 mg capsule 300 mg PO QHS RF: 0 multivitamin 1 TABLET tablet 1 tablet PO DAILY RF: 0 albuterol sulfate 1 INHALER inhaler 1 - 2 puff INHALATION Q4H PRN PRN (Reason: Dyspnea/Wheezing/Sob) RF: 0 valsartan-hydrochlorothiazide 1 TABLET tablet 1 tablet PO DAILY RF: 0 sennosides-docusate sodium 1 TABLET tablet 2 tablet PO BID PRN PRN (Reason: Constipation) RF: 0 Lactobacillus rhamnosus GG 15 billion cell Capsule, Sprinkle 1 cap PO DAILY RF: 0 furosemide [Lasix] 40 mg tablet 40 mg PO BID Qty: 60 RF: 0 cephalexin 500 mg capsule 500 mg PO Q8H 5 Days Qty: 15 RF: 0 metoprolol tartrate 50 mg tablet 50 mg PO BID Qty: 0 RF: 0 acetaminophen [Tylenol] 325 mg Tablet 650 mg PO Q6H PRN (Reason: PAIN AND FEVER) RF: 0 diclofenac sodium 1 % gel 4 g TOPICAL TID RF: 0 oxycodone 10 mg tablet 10 mg PO TID RF: 0 Primary Care Provider: Gabe Mauro Referrals: Gabe Mauro MD [Primary Care Provider] - Disposition Disposition: Acute Care Hospital [facility]
[2020-12-07] MEDS: Furosemide 100 MG/10 ML Vial 80 MG IV (13:30)
[2020-12-07 13:35] LABS: Absolute Neutrophil Count 10.9 X10^3/uL (2.0-7.7); Basophil# 0.05 X10^3/uL; Basophil% 0.3 % (0-1); Eosinophil# 0.81 X10^3/uL; Eosinophils% 5.7 % (0-5); Hematocrit 34.5 % (37-47); Hemoglobin 10.4 g/dL (12.0-15.0); Lymphocyte % 7.7 % (19-41); Mean Corp Hgb Conc 30.1 g/dL (32-36); Mean Corpuscular Hgb 27.5 pg (27.0-32.0); Mean Corpuscular Volume 91.3 fL (81-99); Mean Platelet Vol. 10.4 fl (6.2-12.0); Monocyte# 1.39 X10^3/uL; Monocyte% 9.7 % (0-10); NRBC Flagged by Analyzer 0 % (0-5); Neutrophil # 10.89 X10^3/uL (2.7-7.7); Neutrophil % 76.1 % (47-70); Platelet Count 314 K/mm3 (150-450); RBC Distribution Width CV 16.2 % (11.6-14.6); RBC Distribution Width SD 54.4 fl (35.1-43.9); Red Blood Count 3.78 M/mm3 (4.2-5.4); White Blood Count 14.3 K/mm3 (4.4-11.0)
[2020-12-07 13:51] LABS: Bacteria 0 SEEN /hpf (None Seen); Mucous, Urine 0 SEEN /hpf (<or=2+); White Blood Cells 0 SEEN /hpf (0-5)
[2020-12-07 13:53] LABS: ALB/GLOB Ratio 0.4 RATIO (0.9-2.4); AST(SGOT) 37 U/L (15-37); Alanine Aminotransfer ALT/SGPT 17 U/L (13-56); Albumin, Serum 2.1 g/dL (3.2-5.0); Alkaline Phosphatase 118 U/L (45-117); Anion Gap 3 (5-15); BUN 79 mg/dL (7-18); BUN/Creat Ratio 36.6 RATIO (10-20); Chloride 99 mmol/L (98-107); Creatinine, Serum 2.16 mg/dL (0.55-1.02); EST Glomerular Filtration Rate 23 mL/min (>60); Est Glom Filt Rate - Afr Amer 28 mL/min (>60); Estimated Creatinine Clearance 15.17 ml/min; Globulin 5.1 g/dL (2.2-4.2); Glucose 118 mg/dL (74-106); Protein, Total 7.2 g/dL (6.4-8.2); Sodium Level 133 mmol/L (136-145)
[2020-12-07 14:04] LABS: BNP,B-Type NATRIURETIC PEPTIDE 689.3 pg/mL (0-100)
[2020-12-07 14:07] LABS: Color, Urine Red (Yellow); Glucose, Dipstick Normal (Normal); Ketone-Dipstick 15 mg/dl (Negative); Leukocyte Esterase-Dipstick Negative /ul (Negative); Nitrite-Dipstick Negative (Negative); Occult Blood-Urine 250 /ul (Negative); Protein-Dipstick 500 mg/dl (Negative); Specific Gravity, Urine 1.015 (1.002-1.030); Urine Bilirubin Dipstick Negative (Negative); Urine Clarity Turbid (Clear); Urine Urobilinogen Normal (Normal)
[2020-12-07 14:15] LABS: International Normalized Ratio 2.2; Prothrombin Time (Protime)PT. 23.5 SECONDS (11.7-14.9)
[2020-12-07 14:22] LABS: Red Blood Cells-Urine > 100 SEEN /hpf (0-5); Squamous Epithelial Cells - UA 0-5 SEEN /hpf (5-10)
--- NOTE | 2020-12-07 15:41 | HP.PCM.HOS_ITS ---
Documented by User: Tracy Lagunas NP, REGIONAL SALES ASSOCIATE-C 12/07/20 16:23 HPI - General HPI Narrative EMANI GRACE, is a 80 F who presents from SNF due to increased generalized swelling and shortness of breath. Patient was recently discharged following treatment for diastolic heart failure. Patient drowsy during assessment as she recently received pain medication. Her son is at bedside and states he was told patient's kidney function is worsening due to diuresis. They have discussed hospice transition however would like to attempt admission with IV Lasix prior to making that decision. Patient states she just wants to be with her family. She denies other symptoms or complaints. She has a past medical history of chronic kidney disease stage IV, chronic heart failure with preserved ejection fraction, COPD with asthma, obesity, hypertension, hyperlipidemia, paroxysmal atrial fibrillation, history of CVA. [facility] Medical History Acute kidney failure Atrial fibrillation Chronic kidney disease CKD (chronic kidney disease) Congestive heart failure (CHF) COPD with asthma CVA (cerebral vascular accident) CVA (cerebral vascular accident) DM2 (diabetes mellitus, type 2) Dyslipidemia Essential hypertension Heart failure with preserved ejection fraction Hepatitis A History of cardioversion History of DVT (deep vein thrombosis) Hypercholesteremia Hypokalemia Lymphedema Morbid obesity Nonrheumatic mitral valve stenosis with insufficiency Nonrheumatic tricuspid (valve) insufficiency Pure hypercholesterolemia Home Medications albuterol sulfate 1 - 2 puff INHALATION Q4H PRN PRN 06/04/13 [History Last Taken 05/22/20] multivitamin 1 tablet PO DAILY 06/04/13 [History Last Taken 12/07/20 10:41] valsartan-hydrochlorothiazide 1 tablet PO DAILY 06/04/13 [History Last Taken 12/07/20 10:41] diltiazem HCl 240 mg capsule,extended release 24 hr 240 mg PO DAILY 05/10/20 [History Last Taken 12/07/20 10:41] umeclidinium 62.5 mcg-vilanterol 25 mcg/actuation powdr for inhalation 1 inh INHALATION DAILY 05/10/20 [History Last Taken 12/06/20] sennosides-docusate sodium 2 tablet PO BID PRN PRN tablet 05/24/20 [Rx Last Taken Unknown] bisacodyl 10 mg rectal suppository 10 mg RC DAILY PRN 04/14/21 [History Last Taken Unknown] budesonide 180 mcg/actuation breath activated powder inhaler 2 inh INHALATION BID 05/31/20 [History Last Taken 12/07/20 10:41] magnesium hydroxide 400 mg/5 mL oral suspension 30 ml PO DAILY PRN ml 05/31/20 [History Last Taken Unknown] pantoprazole 40 mg tablet,delayed release 40 mg PO DAILY 05/31/20 [History Last Taken 12/07/20 10:41] vxigu-b-dxbpavwqdvihw 150 unit tablet 150 unit PO BID PRN 06/23/20 [History Last Taken Unknown] apixaban 5 mg tablet 5 mg PO BID 06/23/20 [History Last Taken 12/07/20 10:41] atorvastatin 40 mg tablet 40 mg PO DAILY 06/23/20 [History Last Taken 12/06/20] fluticasone propionate 50 mcg/actuation nasal spray,suspension 1 spray INTRANASAL DAILY 06/23/20 [History Last Taken 12/07/20 10:41] gabapentin 300 mg capsule 300 mg PO QHS 10/25/20 [History Last Taken 12/06/20] Lactobacillus rhamnosus GG 1 cap PO DAILY 11/30/20 [History Last Taken 12/07/20 10:41] cephalexin 500 mg PO Q8H 5 Days #15 cap 12/04/20 [Rx Last Taken 12/07/20] furosemide [Lasix] 40 mg PO BID #60 tab 12/04/20 [Rx Last Taken 12/07/20 10:41] metoprolol tartrate 50 mg PO BID #0 tab 12/04/20 [Rx Last Taken 12/07/20 10:41] acetaminophen [Tylenol] 650 mg PO Q6H PRN 12/07/20 [History Last Taken Unknown] diclofenac sodium 4 g TOPICAL TID 12/07/20 [History Last Taken 12/06/20] oxycodone 10 mg PO TID 12/07/20 [History Last Taken 12/07/20 12:13] Allergy/AdvReac Type Severity Reaction Status Date / Time acetaminophen Allergy Shortness Verified 12/07/20 12:59 [From Melvin] of breath carvedilol Allergy ?dizzy Verified 12/07/20 12:59 celecoxib Allergy Rash Verified 12/07/20 12:59 codeine Allergy Shortness Verified 12/07/20 12:59 of breath etodolac Allergy Rash Verified 12/07/20 12:59 irbesartan Allergy hypertensiv Verified 12/07/20 12:59 e latex Allergy skin peels Verified 12/07/20 12:59 lisinopril Allergy unknown Verified 12/07/20 12:59 losartan Allergy unknown Verified 12/07/20 12:59 morphine Allergy Shortness Verified 12/07/20 12:59 of breath Opioids - Morphine Analogues Allergy Shortness Verified 12/07/20 12:59 of breath propoxyphene [From Darvon] Allergy Shortness Verified 12/07/20 12:59 of breath propoxyphene napsylate Allergy Shortness Verified 12/07/20 12:59 [From Darvocet-N] of breath sotalol Allergy unknown Verified 12/07/20 12:59 lodine Allergy NEEDS Uncoded 12/07/20 12:59 FOLLOW-UP Family History (Reviewed 12/07/20 @ 16:10 by Tracy Lagunas REGIONAL SALES ASSOCIATE, REGIONAL SALES ASSOCIATE-C) Mother Asthma Cancer CHF (congestive heart failure) Hypertension Heart disease Hyperchloremia FH: mental illness Father Cancer Son Asthma Daughter Cancer Surgical History (Reviewed 12/07/20 @ 16:10 by Tracy Lagunas REGIONAL SALES ASSOCIATE, REGIONAL SALES ASSOCIATE-C) History of arthroplasty of knee History of carpal tunnel release History of total hip replacement Hx of abdominal hysterectomy Social History Smoking Status: Never smoker alcohol intake: never substance use type: does not use caffeine: Yes Type: coffee Number of servings: 1 ROS Constitutional Constitutional: Reports change in weight and fatigue; Denies chills, fever(s) or weakness Cardiovascular Cardiovascular: Reports edema; Denies chest pain, lightheadedness, palpitations or syncope Respiratory/Chest Respiratory/Chest: Reports dyspnea; Denies cough, productive cough or wheezing Gastrointestinal Gastrointestinal: Denies abdominal pain, constipation, diarrhea, nausea or vomiting Genitourinary Genitourinary: Denies burning urination, difficulty urinating, dysuria, hematuria, urinary frequency, urinary incontinence or urinary urgency Musculoskeletal Musculoskeletal: Denies back pain, joint pain or muscle weakness Integumentary Integumentary: Denies erythema, lesions, rash or wounds Neurologic Neurologic: Denies abnormal speech, confusion, dizziness, focal weakness, numbness, paresthesias, seizure-like activity or syncope Psychiatric Psychiatric: Denies anxiety or depression Hematologic/Lymphatic Hematologic/Lymphatic: Denies anemia, easy bleeding or easy bruising Allergic/Immunologic Allergic/Immunologic: Denies hives or asthma Vital Signs Vital Signs Vital Signs: 12/07/20 12:59 12/07/20 13:46 12/07/20 15:00 Temperature 97.5 F L Temperature Source Oral Pulse Rate 67 62 Respiratory Rate 18 11 L Respiratory Effort Short of Breath Labored Respiratory Pattern Tachypnea Blood Pressure 115/70 88/61 L Blood Pressure Mean 85 70 Pulse Ox 100 94 Oxygen Delivery Method Nasal Cannula Nasal Cannula Oxygen Flow Rate (L/min) 2 3 12/07/20 15:24 Temperature 97.5 F L Temperature Source Oral Pulse Rate 62 Respiratory Rate 11 L Respiratory Effort Respiratory Pattern Blood Pressure 88/61 L Blood Pressure Mean 70 Pulse Ox 94 Oxygen Delivery Method Nasal Cannula Oxygen Flow Rate (L/min) 3 Weight Weight: 297 lb 13.512 oz Body Mass Index (BMI) 58.1 Physical Exam Const alert, oriented x3 and no apparent distress Constitutional Narrative: Anasarca Orientation / Consciousness: awake, oriented to person, oriented to place and oriented to time HEENT normocephalic and moist oral mucous membranes Eyes PERRL, EOMs intact bilaterally and conjunctivae normal Neck no lymphadenopathy Resp clear to auscultation bilaterally Auscultation: diminished lung sounds Cardio regular rate, regular rhythm and no murmurs Peripheral Pulses: pulses 2+ throughout GI normal to inspection, nondistended, normoactive bowel sounds, non-tender and non-distended Extremity normal to inspection General Extremity: edema bilateral lower extremity Skin no rashes or lesions noted Lesions: no lesions Rashes: no rashes Trauma: no lacerations or abrasions Neuro CN's II-XII intact bilaterally, no focal motor deficits, no sensory deficits noted and deep tendon reflexes 2+ bilaterally Psych mental status grossly normal and affect normal Results Lab / Micro Data Result Diagrams: 12/07/20 13:15 12/07/20 13:15 Labs: Laboratory Results - last 24 hr 12/07/20 13:15: WBC 14.3 H, RBC 3.78 L, Hgb 10.4 L, Hct 34.5 L, MCV 91.3, MCH 27.5, MCHC 30.1 L, RDW Std Deviation 54.4 H, RDW Coeff of Rasta 16.2 H, Plt Count 314, MPV 10.4, Immature Gran % (Auto) 0.500, Neut % (Auto) 76.1 H, Lymph % (Auto) 7.7 L, [place] % (Auto) 9.7, Eos % (Auto) 5.7 H, Baso % (Auto) 0.3, Absolute Neuts (auto) 10.9 H, Absolute Lymphs (auto) 1.10, Nucleated RBC % 0 12/07/20 13:15: Sodium 133 L, Potassium 5.0, Chloride 99, Carbon Dioxide 31.0, Anion Gap 3 L, BUN 79 H, Creatinine 2.16 H, Estim Creat Clear Calc 15.17, Est GFR (MDRD) Af Amer 28 L, Est GFR (MDRD) Non-Af 23 L, BUN/Creatinine Ratio 36.6 H , Glucose 118 H, Calcium 9.0, Total Bilirubin 0.70, AST 37, ALT 17, Alkaline Phosphatase 118 H, Total Protein 7.2, Albumin 2.1 L, Globulin 5.1 H, Albumin/Gl obulin Ratio 0.4 L 12/07/20 13:15: B-Natriuretic Peptide 689.3 H 12/07/20 13:35: Urine Color Red, Urine Clarity Turbid, Urine pH 7.0, Ur Specific Miller 1.015, Urine Protein 500 H, Urine Glucose (UA) Normal, Urine Ketones 15 H, Urine Occult Blood 250 H, Urine Nitrite Negative, Urine Bilirubin Negative, Urine Urobilinogen Normal, Ur Leukocyte Esterase Negative, Urine RBC > 100 SEEN, Urine WBC 0 SEEN, Ur Squamous Epith Cells 0-5 SEEN, Urine Bacteria 0 SEEN, Urine Mucus 0 SEEN 12/07/20 13:40: PT 23.5 H, INR 2.2 Radiology Impression Chest X-Ray 12/07/20 13:17 IMPRESSION: Mild cardiomegaly. The lungs are clear. Electronically Signed: Aristeo Spring MD at 14:11 EDT , Service support , Assessment & Plan Assessment/Plan (1) CHF (congestive heart failure): QUALIFIERS: Heart failure chronicity: acute on chronic (2) Acute on chronic renal insufficiency: PLAN: 1. Anasarca, secondary to chronic heart failure with preserved ejection fraction, complicated by worsening chronic kidney disease stage IV-IV Lasix, strict I&O, daily weight. Recent echocardiogram 11/30/2020 with EF 55 to 60%, mild aortic stenosis. Trend BMP. Patient and family discussing hospice if no improvement. CM consult. 2. Acute kidney injury on chronic kidney disease stage IV-attempt diuresis, trend BMP. 3. Paroxysmal atrial fibrillation-on Eliquis, Cardizem. 4. Hypertension-hold BP regimen given hypotension. 5. Hyperlipidemia-continue statin. 6. History of CVA-on Eliquis, statin. 7. COPD with asthma-as needed albuterol aerosol. 8. Obesity-dietary/lifestyle modifications encouraged. 9. Recent left breast cellulitis-continue previously prescribed course of Keflex. DVT prophylaxis-Eliquis This patient was seen by BALTA Harrington under the supervision of Dr. Rizvi. Documented by User: Dr. Telly Rizvi MD 12/07/20 18:25 PFSH Medical History Acute kidney failure Atrial fibrillation Chronic kidney disease CKD (chronic kidney disease) Congestive heart failure (CHF) COPD with asthma CVA (cerebral vascular accident) CVA (cerebral vascular accident) DM2 (diabetes mellitus, type 2) Dyslipidemia Essential hypertension Heart failure with preserved ejection fraction Hepatitis A History of cardioversion History of DVT (deep vein thrombosis) Hypercholesteremia Hypokalemia Lymphedema Morbid obesity Nonrheumatic mitral valve stenosis with insufficiency Nonrheumatic tricuspid (valve) insufficiency Pure hypercholesterolemia Home Medications albuterol sulfate 1 - 2 puff INHALATION Q4H PRN PRN 06/04/13 [History Last Taken 05/22/20] multivitamin 1 tablet PO DAILY 06/04/13 [History Last Taken 12/07/20 10:41] valsartan-hydrochlorothiazide 1 tablet PO DAILY 06/04/13 [History Last Taken 12/07/20 10:41] diltiazem HCl 240 mg capsule,extended release 24 hr 240 mg PO DAILY 05/10/20 [History Last Taken 12/07/20 10:41] umeclidinium 62.5 mcg-vilanterol 25 mcg/actuation powdr for inhalation 1 inh INHALATION DAILY 05/10/20 [History Last Taken 12/06/20] sennosides-docusate sodium 2 tablet PO BID PRN PRN tablet 05/24/20 [Rx Last Taken Unknown] bisacodyl 10 mg rectal suppository 10 mg RC DAILY PRN 05/31/20 [History Last Taken Unknown] budesonide 180 mcg/actuation breath activated powder inhaler 2 inh INHALATION BID 05/31/20 [History Last Taken 12/07/20 10:41] magnesium hydroxide 400 mg/5 mL oral suspension 30 ml PO DAILY PRN ml 05/31/20 [History Last Taken Unknown] pantoprazole 40 mg tablet,delayed release 40 mg PO DAILY 05/31/20 [History Last Taken 12/07/20 10:41] lioft-l-czrcegncvnxci 150 unit tablet 150 unit PO BID PRN 06/23/20 [History Last Taken Unknown] apixaban 5 mg tablet 5 mg PO BID 06/23/20 [History Last Taken 12/07/20 10:41] atorvastatin 40 mg tablet 40 mg PO DAILY 06/23/20 [History Last Taken 12/06/20] fluticasone propionate 50 mcg/actuation nasal spray,suspension 1 spray INTRANASAL DAILY 06/23/20 [History Last Taken 12/07/20 10:41] gabapentin 300 mg capsule 300 mg PO QHS 10/25/20 [History Last Taken 12/06/20] Lactobacillus rhamnosus GG 1 cap PO DAILY 11/30/20 [History Last Taken 12/07/20 10:41] cephalexin 500 mg PO Q8H 5 Days #15 cap 12/04/20 [Rx Last Taken 12/07/20] furosemide [Lasix] 40 mg PO BID #60 tab 12/04/20 [Rx Last Taken 12/07/20 10:41] metoprolol tartrate 50 mg PO BID #0 tab 12/04/20 [Rx Last Taken 12/07/20 10:41] acetaminophen [Tylenol] 650 mg PO Q6H PRN 12/07/20 [History Last Taken Unknown] diclofenac sodium 4 g TOPICAL TID 12/07/20 [History Last Taken 12/06/20] oxycodone 10 mg PO TID 12/07/20 [History Last Taken 12/07/20 12:13] Allergy/AdvReac Type Severity Reaction Status Date / Time acetaminophen Allergy Shortness Verified 12/07/20 12:59 [From Darvocet-N] of breath carvedilol Allergy ?dizzy Verified 12/07/20 12:59 celecoxib Allergy Rash Verified 12/07/20 12:59 codeine Allergy Shortness Verified 12/07/20 12:59 of breath etodolac Allergy Rash Verified 12/07/20 12:59 irbesartan Allergy hypertensiv Verified 12/07/20 12:59 e latex Allergy skin peels Verified 12/07/20 12:59 lisinopril Allergy unknown Verified 12/07/20 12:59 losartan Allergy unknown Verified 12/07/20 12:59 morphine Allergy Shortness Verified 12/07/20 12:59 of breath Opioids - Morphine Analogues Allergy Shortness Verified 12/07/20 12:59 of breath propoxyphene [From Darvon] Allergy Shortness Verified 12/07/20 12:59 of breath propoxyphene napsylate Allergy Shortness Verified 12/07/20 12:59 [From Darvocet-N] of breath sotalol Allergy unknown Verified 12/07/20 12:59 lodine Allergy NEEDS Uncoded 12/07/20 12:59 FOLLOW-UP Family History Mother Asthma Cancer CHF (congestive heart failure) Hypertension Heart disease Hyperchloremia FH: mental illness Father Cancer Son Asthma Daughter Cancer Surgical History History of arthroplasty of knee History of carpal tunnel release History of total hip replacement Hx of abdominal hysterectomy Social History Smoking Status: Never smoker alcohol intake: never substance use type: does not use caffeine: Yes Type: coffee Number of servings: 1 Results Lab / Micro Data Result Diagrams: 12/07/20 13:15 12/07/20 13:15 Charges/Coding Addendum Addendum: Dr. Rizvi: I personally reviewed the chart and examined the patient, and agree with the above findings. 80-year-old female who was recently admitted to the hospital with diastolic CHF exacerbation as well as left breast cellulitis represents with worsening edema, and shortness of breath. Her cellulitis has improved significantly however she is much more edematous and now her renal function is elevated to 2.16. There was discussions at the correction by the physician there who is recommending hospice however the family initially refused. I had a 30-minute advanced care planning discussion where I discussed the situation with them that the Lasix that we would need to give to diurese her would potentially worsen her kidneys and she is not and good enough physical health to tolerate dialysis. When I discussed the treatment for her elevated kidney function, it was discussed that we could do IV fluids which would just make her more short of breath and more edematous and could worsen her diastolic dysfunction. They ultimately elected to go back to the correction with hospice however they were concerned that given the time in the afternoon, that there would not be anybody there to take care of her for hospice. I discussed with him that I would touch base with the emergency room physician and the community mental health social worker here to see if we can get the hospice set up for this evening at the [facility], however if that was difficult to obtain that we would admit and discharge in the morning. Procedures Hospitalists Procedures: 78627 Advncd Care Plan 30 Min Multi Select Codes Visit Charges Office Visit/Consults: 38480 ED Visit; Moderate Severity
--- NOTE | 2020-12-07 16:09 | CM.ED ---
Addendum entered by Flor Daniel 12/07/20 18:52: RONALD spoke to Corinna at [facility]. She can have Kenisha do the intake at [facility] but not till 9pm at night due to staffing. RONALD indicated that this typewriters functional tester will schedule transport to [facility] at 9:00pm. Corinna said that if patient is experiencing symptoms she wants to make sure that Hospice staff is there when she gets to [facility] to manage symptoms. RONALD faxed referral to Hospice. RONALD spoke to Velia and patient's son, Davonte. Velia said that they will send patient back now. RONALD spoke to radio station audio engineer and Lindsay who stated that patient's transport scheduled at 9pm. RONALD was advised due to numerous transport to other hospitals the transport to [facility] will need to take place at 9:00. RONALD updated patient and family that patient will need to be transported at 9pm. RONALD provided patient with warm blankets, per family request and notified RN of patient's desire for food. RONALD spoke to Mechelle at [facility]. Advised patient is coming at 9:00pm. Mechelle verbalized understanding. RONALD faxed today's notes and labs to [facility] for continuity of care. RONALD spoke to Corinna at [facility] and advised patient is leaving at 9:00pm. RONALD updated MD. Plan: Return to [facility] with Hospice. Patient is going to room 407 per family (note previously this worker room 409 which was error). Addendum entered by Flor Daniel 12/07/20 17:44: RONALD called Dottie at [facility] and inquired about patient returning to [facility]. Dottie said that she did not think it would be an issue. RONALD spoke to Mechelle Mishra and stated that patient can return to [facility]. Mechelle was advised that daughter will be in at 5:30 and then this typewriters functional tester will speak to them about hospice and make referral. RONALD said then patient will come back to [facility]. RONALD spoke to keith's daughter, Velia and she said that they have selected [facility] and patient is going to [facility] room 409. RONALD paged [facility] responder. Flor Daniel READING COACH LISWS Addendum entered by Flor Daniel 12/07/20 16:23: RONALD updated family and they stated that patient's social sciences chair is Imtiaz [phone]. SW called and left voice mail for Imtiaz updating her about patient and family's request. Flor Daniel MSFay MAYES Original Note: RONALD Note Referral Source: MD -Referral Reason: Hospice SW met with patient and her son Davonte. Patient and her son voiced that patient would like to go back to [facility]. Davonte said that then family could visit patient. Davonte said that his sister will be here at 5:30pm. RONALD called [facility] and spoke to Jennie. She recommended that typewriters functional tester speak to Ameena, [facility] Ware[employer] Distribution Specialist at [facility] [phone] and left voice mail for a call back. .. Jennie recommended that this typewriters functional tester also call the Nursing station and this typewriters functional tester called nursing station and left message. RN station is [phone].Family updated. Plan: To be determined Flor CobbLopez
--- NOTE | 2020-12-07 18:01 | ED.RN ---
[facility] WITH [facility]YSIC[facility] AMB. PT WILL BE PICKED UP FOR TRANSPORT AT APPROX. 2100
[2020-12-07] MEDS: oxyCODONE 5 MG Tablet 10 MG PO (18:43)
--- NOTE | 2020-12-07 19:19 | ED.RN ---
REPORT TO HARVEY, NURSE AT [facility]. CURRENTLY AWAITING TRANSPORT BACK, ETA 2100 T[address].
--- NOTE | 2020-12-07 21:13 | ED.RN ---
Transport at bedside, [facility] called and updated with patients departure.
--- NOTE | 2020-12-08 00:22 | ED.RN ---
HOSPICE CALLED ASKING QUESTIONS ABOUT PATIENT DX AND TREATMENT WHILE IN THE ER
== END 2020-12-07 21:22 | disposition hospice, inpatient (51) ==
PROVIDERS: Emergency Provider Emergency Medicine; PCP Family Medicine
DX: N17.9 Acute kidney failure, unspecified (principal); R06.00 Dyspnea, unspecified; I48.0 Paroxysmal atrial fibrillation; I13.0 Hypertensive heart and chronic kidney disease with heart failure and stage 1 through stage 4 chronic kidney disease, or unspecified chronic kidney disease; I50.32 Chronic diastolic (congestive) heart failure; E11.22 Type 2 diabetes mellitus with diabetic chronic kidney disease; N18.4 Chronic kidney disease, stage 4 (severe); I95.9 Hypotension, unspecified; I36.1 Nonrheumatic tricuspid (valve) insufficiency; I34.2 Nonrheumatic mitral (valve) stenosis; J44.9 Chronic obstructive pulmonary disease, unspecified; E78.5 Hyperlipidemia, unspecified; E66.01 Morbid (severe) obesity due to excess calories; Z79.01 Long term (current) use of anticoagulants; Z79.899 Other long term (current) drug therapy; Z99.81 Dependence on supplemental oxygen; Z86.718 Personal history of other venous thrombosis and embolism; Z86.73 Personal history of transient ischemic attack (TIA), and cerebral infarction without residual deficits
CPT/HCPCS: 71045; 80053; 81001; 83880; 85025; 85610; 93005; 96374; 99285; A4216; J1940